=== PATIENT | female | born 1960 | race Caucasian/White ===

== ENCOUNTER 2020-02-20 08:23 | Outpatient (CLI) | payer OTHER, SELFPAY ==
--- NOTE | ~2020-02-20 | MM_ITS ---
EXAMINATION: MM screening jennifer BI w maria isabel HISTORY: Screening mammogram TECHNIQUE: Craniocaudal and mediolateral oblique 3-D tomosynthesis images were obtained and synthetic 2-D images were generated. CAD analysis was submitted and interpreted. COMPARISON: 01/22/2019, 11/08/2017 bilateral digital screening mammogram examinations BREAST PARENCHYMAL COMPOSITION: There are scattered areas of fibroglandular density. FINDINGS: There is no evidence of suspicious mass, calcification, or architectural distortion to sugg est malignancy in either breast. There has been no suspicious interval change. IMPRESSION: 1. No mammographic evidence of malignancy. 2. Recommend routine screening mammography in one year. BI-RADS Category 1: Negative Reviewed, dictated and finalized at location A.
== END 2020-02-20 08:24 | disposition home or self-care (01) ==
LOC: ANHIMG 08:26
PROVIDERS: PCP Family Medicine; Visit Provider Family Medicine
DX: Z12.31 Encounter for screening mammogram for malignant neoplasm of breast (principal)
CPT/HCPCS: 77063; 77067

== ENCOUNTER 2020-03-11 10:27 | Outpatient (CLI) | payer OTHER, SELFPAY ==
--- NOTE | ~2020-03-11 | CT_ITS ---
EXAMINATION: CT brain wo con DATE: 03/11/2020 10:54 INDICATION: Syncope, collapse. TECHNIQUE: Computed tomography (CT) of the head was performed without intravenous contrast. The mA wa s adjusted according to patient size. Iterative reconstruction technique was employed. Exam dose: 68 1.00 mGy-cm total exam DLP. COMPARISON: None FINDINGS: The ventricles are dilated. Consider communicating hydrocephalus. Bilateral carotid siphon internal carotid artery calcifications. There is nonspecific mild diminished attenuation of the cerebral white matter, likely due to chronic small vessel ischemic changes. No intracranial mass lesion or hemorrhage or cerebrovascular accident is evident. No midline shifts o r mass effects. No subdural or epidural hematoma. No orbital mass lesion. 7 mm mucous retention cyst or polyp along the lateral wall of the left maxillary sinus. The included paranasal sinuses and the mastoid air cells otherwise are unremarkable. Status post right mastoidecto my. Hyperostosis frontalis interna. No skull fracture or bone destruction. IMPRESSION: Prominent dilatation of the ventricles, suggesting possible communicating hydrocephalus Cerebral atherosclerosis and chronic small vessel ischemic changes of the cerebral white matter Reviewed, dictated and finalized at Location A. Reviewed, dictated and finalized at location A. IMPRESSION: Prominent dilatation of the ventricles, suggesting possible commun icating hydrocephalus Cerebral atherosclerosis and chronic small vessel ischemic changes of the cereb ral white matter
== END 2020-03-11 10:28 | disposition home or self-care (01) ==
PROVIDERS: PCP Family Medicine; Visit Provider Family Medicine
DX: R55 Syncope and collapse (principal); I67.2 Cerebral atherosclerosis
CPT/HCPCS: 70450

== ENCOUNTER 2020-03-30 12:23 | Outpatient (CLI) | payer OTHER, SELFPAY ==
--- NOTE | 2020-03-30 13:30 | NEURO_ITS ---
TEST: ELECTROENCEPHALOGRAM DIAGNOSIS: SYNCOPE AND COLLAPSE PATIENT NUMBER: [id number] EEG NUMBER: [id number] RECORDING DATE: 03/30/20 CLINICAL HISTORY: Patient reports since October she has lost consciousness 5 times. She has no warning signs and is fine afterwards. CONDITION OF RECORDING: Awake, drowsy and sleep EEG DESCRIPTION: Basic resting occipital frequency consists of moderate amount of farily well organized low to medium voltage 8-9hz alpha mixed with low voltage 15-18hz beta. During drowsiness low voltage beta activity is seen diffusely mixed with waxing and waning posterior alpha rhythms and intermittent theta activity. Bilateral symmetrical sleep activity is seen during sleep. Intermittent low to medium voltage 5-7hz asymmetrical theta activity is seen with occasional delta activity. Nonparoxysmal. Nonfocal. Nonlateralizing. IMPRESSION: Questionably abnormal record due to presence of excessive amount of theta and occasional delta activity. This abnormalities are not highly diagnostic but could be compatible with seizure disorder. Clinical correlation recommended and further evaluation recommended. [facility]
== END 2020-03-30 12:24 | disposition home or self-care (01) ==
PROVIDERS: PCP Family Medicine; Visit Provider Family Medicine
DX: R55 Syncope and collapse (principal)
CPT/HCPCS: 95816

== ENCOUNTER → 2020-11-23 16:33 | Outpatient (CLI) | payer OTHER, SELFPAY ==
--- NOTE | ~2020-11-23 | XR_ITS ---
XR thoracic spine 2V 11/23/2020 17:05 Indication: Back pain for 2 weeks Procedure: 3 views of the thoracic spine Comparison: No prior studies for comparison. Findings: There is mild dextroscoliosis of the lower thoracic spine. Vertebral body heights are maint ained. No fracture or traumatic malalignment. No significant paraspinal soft tissue abnormality. Pedi cles intact. There are mild endplate degenerative changes at multiple levels. Surrounding osseous str uctures within normal limits. Impression: 1: Mild thoracic spondylosis with dextroscoliosis of the lower thoracic spine. Reviewed, dictated and finalized at location A. 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
--- NOTE | ~2020-11-23 | XR_ITS ---
XR cervical spine min 6V 11/23/2020 17:05 Indication: Neck pain for 2 weeks Procedure: 7 views of the cervical spine Comparison: No prior studies for comparison. Findings: There is normal cervical alignment. Vertebral body heights are maintained. Odontoid process within normal limits. Lateral masses are normally aligned. No prevertebral soft tissue swelling. Carrol g apices are normal. There are mild uncinate degenerative changes of the mid cervical spine. Impression: 1: Mild cervical spondylosis. Reviewed, dictated and finalized at location A. [employer] Impression: 1: Mild cervical spondylosis.
== END ==
PROVIDERS: Visit Provider Chiropractor
DX: M47.892 Other spondylosis, cervical region (principal); M47.894 Other spondylosis, thoracic region
CPT/HCPCS: 72052; 72070

== ENCOUNTER → 2020-12-20 02:22 | Outpatient (CLI) | payer OTHER, SELFPAY ==
[2020-12-20 18:21] LABS: SARS-CoV-2 RNA PCR Negative
== END ==
PROVIDERS: Visit Provider Internal Medicine Cardiovascular Disease
DX: Z01.812 Encounter for preprocedural laboratory examination (principal); Z20.822 Contact with and (suspected) exposure to COVID-19
CPT/HCPCS: C9803; U0003; U0005

== ENCOUNTER 2020-12-23 01:09 | Day surgery (SDC) | payer OTHER, SELFPAY ==
[2020-12-23 11:34] VITALS: BP 132/53; PULSE 68; RESP 14; O2SAT 98
--- NOTE | 2020-12-23 12:59 | WPDHPUPDATE1 ---
History and Physical Update Update Date/Time: 12/23/20 12:59 Patient with recurrent syncope, here for a the implantable loop recorder implant. History and Physical has been reviewed, including an updated exam of the patient. There are NO changes in the patient's condition. Risks, benefits, and alternatives have been discussed and questions answered. Patient agrees to proceed with procedure.
--- NOTE | 2020-12-23 12:59 | PM.OP ---
Procedure Note - Brief Procedure Note - Brief Date of procedure: 12/23/20 Pre-op diagnosis: Syncope Procedure performed: Implantation of a Biotronik implantable loop recorder Description of procedure: Uneventful implant of a Biotronik implantable loop recorder Anesthesia: local Surgeon: Harriet Hu MD Condition: stable Disposition: observation
--- NOTE | 2020-12-23 13:08 | PM.PROC ---
Procedure Note - Detailed Date of procedure: 12/23/20 Pre-op diagnosis: Syncope Post-op diagnosis: same Procedure performed: Implantation of a Biotronik loop recorder. Description of procedure: After informed consent, the left chest was sterilely prepped and draped. Local anesthesia was provided with 1% lidocaine. The Biotronik implantable loop recorder was implanted along the left parasternal area uneventfully. Good P-wave sensing was obtained, 0.32V.. Because of her history of adhesive allergy, I sutured the incision closed with 2 0 Vicryl and we placed a Tegaderm gauze dressing over the incision. Implants: Biotronik loop recorder,ProMRI, Model # [id number], Serial number [id number] Anesthesia: local Surgeon: Harriet Hu MD Estimated blood loss (mL): 2 Drains: No Packing: No Complications: No immediate complications Condition: stable Disposition: same day
--- NOTE | 2020-12-23 16:34 | SUR.OPER ---
1300-pt given D/C orders and instructions. Questions answered and verbalized understanding. AOx4. Ambulated per request to waiting vehicle. No distress noted or verbalized at time of departure.
== END 2020-12-23 13:00 | disposition home or self-care (01) ==
PROVIDERS: PCP Family Medicine; Visit Provider Internal Medicine Cardiovascular Disease
PROC: (CPT 33285; principal; 2020-12-23 12:00)
DX: R55 Syncope and collapse (principal); I10 Essential (primary) hypertension; E78.5 Hyperlipidemia, unspecified; F41.8 Other specified anxiety disorders; E53.8 Deficiency of other specified B group vitamins
CPT/HCPCS: 33285; C1764

== ENCOUNTER 2021-02-01 17:34 | Emergency (ER) | payer OTHER, SELFPAY ==
--- NOTE | ~2021-02-01 | CT_ITS ---
EXAMINATION: CT brain wo con DATE: 02/01/2021 21:49 INDICATION: Fall. Patient struck head. TECHNIQUE: Computed tomography (CT) of the head was performed without intravenous contrast. The mA wa s adjusted according to patient size. Iterative reconstruction technique was employed. Exam dose: 68 1.00 mGy-cm total exam DLP. COMPARISON: 03/11/2020 CT brain FINDINGS: Stable chronic prominence of the size of the cerebral ventricles relative to the cerebral c ortical sulci since 03/11/2020; clinical correlation is recommended for possible normal pressure hydro cephalus, characterized by a triad of symptoms: gait disturbance, cognitive impairment and diminished bladder control. No intracranial mass lesion or hemorrhage or cerebrovascular accident is evident. No midline shift or mass effect. Bilateral carotid siphon internal carotid artery calcifications. No subdural or epidural hematoma. Status post right mastoidectomy. Small mucous retention cyst of the lateral wall of left maxillary an trum is again noted. Bilateral hyperostosis frontalis interna, not likely of any clinical significance. No skull fracture or bone destruction. IMPRESSION: Stable ventricular prominence since 03/11/2020; recommend clinical correlation to exclude normal pressure hydrocephalus No acute intracranial finding or significant change since 03/11/2020 Reviewed, dictated and finalized at Location A. Reviewed, dictated and finalized at location A.
--- NOTE | ~2021-02-01 | CT_ITS ---
EXAMINATION: CT cervical spine wo con DATE: 02/01/2021 21:49 INDICATION: Fall. Patient struck head. Head and neck injury. TECHNIQUE: Computed tomography (CT) of the cervical spine was performed without intravenous contrast. Automated exposure control and iterative reconstruction technique were employed. Exam dose: 415.05 mGy-cm total exam DLP. COMPARISON: 11/23/2020 cervical spine FINDINGS: Incidental finding of right mastoidectomy. There is straightening of cervical spine. C1 and C2 are normally aligned and the odontoid process is intact. No cervical spine fracture or disl ocation or locked facet. Cervical interspaces are relatively well preserved. No prevertebral soft tis oscar swelling. IMPRESSION: Straightening of cervical spine; no fracture or dislocation or locked facet Reviewed, dictated and finalized at Location A. Reviewed, dictated and finalized at location A. IMPRESSION: Straightening of cervical spine; no fracture or dislocation or loc ked facet
--- NOTE | ~2021-02-01 | XR_ITS ---
XR wrist LT min 3V DATE: 02/01/2021 21:58 INDICATION: Fall. Generalized left wrist pain TECHNIQUE: 4 views COMPARISON: 02/01/2021 left forearm FINDINGS: There is prominent osteoarthritic change at the first carpometacarpal joint. No recent fracture or dislocation, periosteal reaction or bone destruction of the left wrist is evide nt. IMPRESSION: Prominent osteoarthritis at first carpal metacarpal joint No apparent recent fracture or dislocation of left wrist Reviewed, dictated and finalized at location A.
--- NOTE | ~2021-02-01 | XR_ITS ---
XR forearm LT 2V DATE: 02/01/2021 18:08 INDICATION: Fall. Generalized pain from elbow to wrist TECHNIQUE: AP and lateral views COMPARISON: None FINDINGS: No fracture or dislocation. No elbow joint effusion. No periosteal reaction or bone destruc tion. IMPRESSION: Negative Reviewed, dictated and finalized at location A. IMPRESSION: Negative
--- NOTE | ~2021-02-01 | XR_ITS ---
XR elbow LT min 3V DATE: 02/01/2021 21:58 INDICATION: Fall. Left elbow injury, pain TECHNIQUE: 4 views COMPARISON: None FINDINGS: No fracture or dislocation or joint effusion. No periosteal reaction or bone destruction. IMPRESSION: Negative Reviewed, dictated and finalized at location A. IMPRESSION: Negative
[2021-02-01 17:55] VITALS: BP 146/55; PULSE 60; RESP 18; TEMP 36.3; O2SAT 98
[2021-02-01 21:00] VITALS: BP 133/67; PULSE 62; RESP 21; O2SAT 98
[2021-02-01 21:21] VITALS: BP 161/80; PULSE 67; RESP 19; O2SAT 100
--- NOTE | 2021-02-01 21:30 | ED.GENADULT ---
HPI - General Adult General Chief complaint: Fall Stated complaint: fall head trauma Time Seen by Provider: 02/01/21 21:22 Source: patient History of Present Illness HPI narrative: Patient is a 60 y/o female complaining of left wrist and left elbow pain after she fell down approximately 10 steps at work. She describes her pain as sharp and rates it as 7/10. She states that movement aggravates her pain. She also struck her head and has some right sided headache. She denies LOC. She has no neck pain, back pain, chest pain or abdominal pain. Related Data Home Medications Medication Instructions Recorded Confirmed clonazepam 0.5 mg tablet 0.5 mg PO TID tablet 09/05/19 12/22/20 mirtazapine 45 mg disintegrating 45 mg PO DAILY 09/05/19 12/22/20 tablet lamotrigine 100 mg tablet 100 mg PO TID tablet 09/08/19 12/22/20 aripiprazole 10 mg PO DAILY 12/22/20 12/22/20 Allergies Allergy/AdvReac Type Severity Reaction Status Date / Time sulfamethoxazole Allergy Intermediate ITCHING Verified 09/13/20 13:02 AND RASH trimethoprim Allergy Intermediate ITCHING Verified 09/13/20 13:02 AND RASH cefixime Allergy Unknown Unknown Verified 09/13/20 13:02 ciprofloxacin Allergy Unknown Unknown Verified 09/13/20 13:02 clarithromycin Allergy Unknown Unknown Verified 09/13/20 13:02 erythromycin base Allergy Unknown Unknown Verified 09/13/20 13:02 Penicillins Allergy Unknown Unknown Verified 09/13/20 13:02 sulfamethizole Allergy Unknown Unknown Verified 09/13/20 13:02 tetracycline Allergy Unknown Unknown Verified 09/13/20 13:02 Review of Systems Constitutional: Constitutional: Denies chills, Denies fever(s), Reports headache(s) and Denies weakness Eyes: Eyes: Denies blurry vision ENT: Reports headache(s) and Denies neck pain Cardiovascular: Cardiovascular: Denies chest pain and Denies dyspnea Respiratory: Respiratory: Denies cough and Denies dyspnea Gastrointestinal: Gastrointestinal: Denies abdominal pain, Denies diarrhea, Denies nausea and Denies vomiting Genitourinary: Genitourinary: Denies hematuria and Denies dysuria Musculoskeletal: Musculoskeletal: Denies back pain, Reports arthralgias (left elbow pain and wrist pain) and Denies neck pain Neurologic: Reports headache(s) and Denies weakness [facility] Family History Family History Father Hypertension Family history of elevated blood lipids Mother Hypertension Family history of elevated blood lipids Family history of arthritis Social History Social History Years smoked: 2 Smoking status: Former smoker Tobacco type: cigarettes Second hand tobacco smoke exposure: No Smoking end date: 10/22/81 Alcohol intake: never Substance use: never Substance use type: does not use Gender identity (if verbalized by the patient): Female Exam Const: General: no acute distress and well developed Orientation/consciousness: oriented to person, oriented to place, oriented to time and patient oriented x3 HENMT: Head: normocephalic Ears: external ears normal General nose exam: Normal external nose present Eyes: General: appearance normal, both eyes and all related structures Conjunctivae: conjunctivae normal Neck: Neck: normal visual inspection and full ROM Chest: Chest palpation & inspection: normal inspection of the chest and no tenderness Resp: Effort & Inspection: normal respiratory effort Auscultation: clear to auscultation bilaterally Cardio: Rate: regular rate Rhythm: regular rhythm GI: GI Palp: No abdominal tenderness and Yes Soft to palpation Skin: General skin exam: normal color and turgor normal Neuro: General: oriented to person, oriented to place, oriented to time and patient oriented x3 Cognition (Neuro): normal cognition Extrem: General: normal to inspection, full ROM and no pedal edema Psych: Appearance: grossly normal Mental Status:
[2021-02-01 22:00] VITALS: BP 144/32; PULSE 60; RESP 22; O2SAT 100
[2021-02-01 23:25] VITALS: BP 150/70; PULSE 64; RESP 25; O2SAT 98
== END 2021-02-01 23:25 | disposition home or self-care (01) ==
PROVIDERS: Emergency Provider Emergency Medicine; PCP Family Medicine
DX: M25.522 Pain in left elbow (principal); M25.532 Pain in left wrist; S00.03XA Contusion of scalp, initial encounter; Z87.891 Personal history of nicotine dependence; W10.9XXA Fall (on) (from) unspecified stairs and steps, initial encounter
CPT/HCPCS: 70450; 72125; 73080; 73090; 73110; 99284

== ENCOUNTER 2021-02-07 15:04 | Inpatient (IN) | payer OTHER, SELFPAY ==
[2021-02-07] VITALS (7 sets, daily range): BP systolic 123–171; BP diastolic 63–94; PULSE 65–78; RESP 16–25; TEMP 36.2–36.4; O2SAT 98–100; BMI 40.3
--- NOTE | ~2021-02-07 | XR_ITS ---
EXAMINATION: XR chest 1V portable 02/07/2021 16:47 INDICATION: Shortness of breath after fall PROCEDURE: AP view of the chest COMPARISON: 11/17/2016 FINDINGS: The lungs are clear. The cardiomediastinal silhouette is within normal limits. There are no pleural effusions. There is no pneumothorax suspected. There is an implantable cardiac device ov erlying the left chest. IMPRESSION: 1: NO ACUTE CARDIOPULMONARY DISEASE. Reviewed, dictated and finalized at location A.
--- NOTE | ~2021-02-07 | CT_ITS ---
EXAMINATION: CT brain wo con DATE: 02/07/2021 16:43 INDICATION: Head injury. TECHNIQUE: Computed tomography (CT) of the head was performed without intravenous contrast. The mA wa s adjusted according to patient size. Iterative reconstruction technique was employed. The dose-lengt h product was 605.33 mGy-cm. COMPARISON: Head CT 02/01/2021 FINDINGS: There is no intracranial hemorrhage, acute infarction, or abnormal intracranial mass lesion . The ventricles are dilated for the size of the sulci. The paranasal sinuses are clear. The orbits a re normal. There are changes of right mastoidectomy. IMPRESSION: 1. Stable ventriculomegaly. Correlate clinically for normal pressure hydrocephalus. Reviewed, dictated and finalized at location B. IMPRESSION: 1. Stable ventriculomegaly. Correlate clinically for normal pressure hydrocepha mary.
--- NOTE | ~2021-02-07 | XR_ITS ---
EXAMINATION: XR lumbar puncture diagnostic DATE: 02/08/2021 12:21 INDICATION: Dizziness and falls TECHNIQUE: The procedure including the risks and benefits was discussed with the patient. Risks discu ssed included spinal headache, cerebrospinal fluid leak, bleeding, and infection. The patient underst ood the risks and agreed to proceed. A timeout was performed to verify the patient's name, date of , and procedure to be performed. The skin overlying the L3-L4 level was prepped and draped in usual sterile fashion. Subcutaneous 1% lidocaine was used for local anesthesia. A 22 gauge spinal n eedle was advanced under fluoroscopic guidance. And crosstable lateral radiograph was also obtained t o assess for depth of the needle tip. Opening pressure was obtained, fluid was aspirated into collect ion tubes and a closing pressure obtained. The needle was removed and the entry site was cleaned and dressed. There were no immediate complications. The patient was taken to the nursing area for observ ation. FINDINGS: Real-time fluoroscopy demonstrates the needle at the L3-L4 level. Opening pressure was 16 c m water. (Normal range is variably defined as 6-20 cm water and up to 25 cm water in obese patients. Pressure >25 cm water is one of the modified Dandy criteria for idiopathic intracranial hypertension) . 12 mL of clear, colorless fluid was collected in 4 tubes. Closing pressure was 14 cm water. A tota l of 2 fluoroscopic images and a single radiograph are obtained. The amount of fluoroscopy time used during this procedure was 0.4 minutes. IMPRESSION: 1. Successful fluoro-guided lumbar puncture. Reviewed, dictated and finalized at location A.
--- NOTE | ~2021-02-07 | MR_ITS ---
EXAMINATION: MR brain/brain stem wo/w con DATE: 02/08/2021 12:54 INDICATION: Gait disturbance. Ventriculomegaly. TECHNIQUE: Magnetic resonance imaging (MRI) of the brain and brainstem was performed without and with 20 mL MultiHance intravenous contrast. Sequences included sagittal and axial T1-weighted FSE, axial diffusion-weighted FS EPI, axial T2*-weighted GRE, axial T2-weighted FLAIR Propeller, and axial T2-we ighted Propeller. Postcontrast sequences included axial and coronal T1-weighted FSE. Apparent diffusi on coefficient (ADC) maps were created. COMPARISON: Head CT 02/07/2021, 03/11/2020 FINDINGS: There are scattered areas of nonspecific increased T2-weighted signal intensity in the cere bral white matter, which is within normal limits for the patient's age. There is no intracranial hemo rrhage, acute infarction, or abnormal intracranial mass lesion. The lateral, third, and fourth ventri cles are dilated out of proportion to the size of the sulci. There is mild mucosal thickening in the paranasal sinuses. The orbits are normal. The mastoid air cells are normal. IMPRESSION: 1. Stable chronic ventriculomegaly. Correlate clinically for normal pressure hydrocephalus. Reviewed, dictated and finalized at location B. IMPRESSION: 1. Stable chronic ventriculomegaly. Correlate clinically for normal pressure hy drocephalus.
--- NOTE | 2021-02-07 16:29 | ECG_ITS ---
Measurements Intervals Mallory Rate: 65 P: 22 NE: 153 QRS: -11 QRSD: 106 T: 93 QT: 428 QTc: 445 Interpretive Statements SINUS RHYTHM DELAYED PRECORDIAL R/S TRANSITION BORDERLINE ST-T WAVE ABNORMALITY- HIGH LATERAL LEADS BASELINE ARTIFACT- I, III, AVR, AVL, AVF BORDERLINE ECG Electronically Signed On 02-07-2021 20:14:00 CDT by Lan Beasley D.O.
[2021-02-07] MEDS: SODIUM CHLORIDE 0.9% IV 500 ML 999 ML IV CONT (17:01)
[2021-02-07 17:29] LABS: Basophils Percent Auto 0.4 % (0.2-1.2); Eosinophils Absolute Auto 0.1 K/mm3 (0-0.3); Eosinophils Percent Auto 1.8 % (0-4.4); Hematocrit 40.3 % (37.0-47.0); Hemoglobin 13.1 g/dL (12.0-15.0); Immature Granulocyte Absolute 0.03 K/mm3 (0.00-0.031); Immature Granulocyte Percent A 0.4 % (0-0.5); Lymphocytes Absolute Auto 1.18 K/mm3 (0.9-3.2); Lymphocytes Percent Auto 16.6 % (18.3-44.2); Mean Corpuscular HGB Conc 32.5 g/dl (32-36); Mean Corpuscular Hemoglobin 30.5 pg (26-34); Mean Corpuscular Volume 93.7 fl (80-100); Mean Platelet Volume 10.2 fl (7.4-10.4); Monocytes Absolute Auto 0.5 K/mm3 (0.1-0.6); Monocytes Percent Auto 6.5 % (2.6-8.5); Neutrophils Absolute Auto 5.3 K/mm3 (1.3-6.7); Neutrophils Percent Auto 74.3 % (45.5-73.1); Platelet Count Result 257 k/mm3 (150-375); Red Cell Distribution Width 13.3 % (11.5-14.5); White Blood Count 7.1 K/mm3 (4.5-10.0)
[2021-02-07 17:38] LABS: Add Urine Microscopic? YES; Appearance Urine Clear (Clear); Bacteria Urine 3+ /hpf; Bilirubin Urine Negative (Negative); Blood Urine Negative (Negative); Color Urine Yellow (Yellow); Glucose Urine UA Negative (Negative); Ketones Urine Negative (Negative); Leukocyte Esterase Ur Trace LEU/UL (Negative); Mucus Urine Rare /lpf; Nitrate Urine Negative (Negative); Protein Urine Negative (Negative); RBC Urine 0-2 /hpf (0-2); Specific Grav Ur 1.011 (1.001-1.035); Squamous Epithelial Cell Urine Occasional /hpf (Few); Urobilinogen Urine Negative mg/dL (<2.0)
[2021-02-07 17:39] LABS: Creatine Kinase 49 U/L (30-135); INR 0.9; Prothrombin Time 12.6 Seconds (11.1-14.7)
[2021-02-07 17:40] LABS: Partial Thromboplastin Time 28.5 SECONDS (22.3-36.8)
[2021-02-07 17:52] LABS: Troponin I < 0.012 ng/mL (0.000-0.034)
--- NOTE | 2021-02-07 19:08 | ED.FALL ---
HPI - Fall General Chief Complaint: Fall Stated Complaint: fall/hi/right hip pain Time Seen by Provider: 02/07/21 16:11 Source: patient, family and old records reviewed Mode of arrival: ambulatory Limitations: clinical condition History of Present Illness HPI Narrative: Patient is a 60-year-old female who presents after sustaining what is described as a mechanical ground-level fall patient does have balance issues and has had frequent falls in the recent past has been experiencing dizziness her psychiatrist had made some medication changes thinking that this may help the issue however the patient continues to have dizziness. Patient notes she struck her head and injured her hip and neck in the fall. On arrival patient in no distress however she was unable to get up on her own accord and required help. Patient lives at home by herself. Patient is on multiple medications. Patient notes the only new medication is the duloxetine which she started in the last week. Patient notes that she has had syncopal episodes but did not have syncope or loss of consciousness with this fall. Patient also notes history for chronic hydrocephalus has never been evaluated as far as a lumbar puncture for this and saw her primary care this morning for her gait instability and falls with planned CT of the brain neurology referral and lumbar puncture for opening pressures. Patient then went home and sustained her fall Related Data Home Medications Medication Instructions Recorded Confirmed clonazepam 0.5 mg tablet 0.5 mg PO TID tablet 09/05/19 02/07/21 mirtazapine 45 mg disintegrating 45 mg PO DAILY 09/05/19 02/07/21 tablet lamotrigine 100 mg tablet 100 mg PO TID tablet 09/08/19 02/07/21 aripiprazole 10 mg PO DAILY 12/22/20 02/07/21 duloxetine 60 mg capsule,delayed 60 mg PO DAILY 02/07/21 02/07/21 release Allergies Allergy/AdvReac Type Severity Reaction Status Date / Time sulfamethoxazole Allergy Intermediate ITCHING Verified 02/07/21 17:27 AND RASH trimethoprim Allergy Intermediate ITCHING Verified 02/07/21 17:27 AND RASH cefixime Allergy Unknown Unknown Verified 02/07/21 17:27 ciprofloxacin Allergy Unknown Unknown Verified 02/07/21 17:27 clarithromycin Allergy Unknown Unknown Verified 02/07/21 17:27 erythromycin base Allergy Unknown Unknown Verified 02/07/21 17:27 Penicillins Allergy Unknown Unknown Verified 02/07/21 17:27 sulfamethizole Allergy Unknown Unknown Verified 02/07/21 17:27 tetracycline Allergy Unknown Unknown Verified 02/07/21 17:27 Review of Systems Review of Systems: All systems reviewed & are unremarkable except as noted in HPI and below PMFSH Past Medical History Medical History (Updated 02/07/21 @ 19:13 by Saad Loza PA-C) Anxiety and depression B12 deficiency Chronic GERD Essential (primary) hypertension Major depressive disorder, single episode, unspecified Osteoarthritis of knees, bilateral Other and unspecified hyperlipidemia Syncope and collapse Family History Family History Father Hypertension Family history of elevated blood lipids Mother Hypertension Family history of elevated blood lipids Family history of arthritis Social History Social History Years smoked: 2 Smoking status: Former smoker Tobacco type: cigarettes Second hand tobacco smoke exposure: No Smoking end date: 10/22/81 Alcohol intake: never Substance use: never Substance use type: does not use Gender identity (if verbalized by the patient): Female Exam Narrative: Exam Narrative: GENERAL: Well-appearing, well-nourished, and in no acute distress. HEAD: Normocephalic, atraumatic. EYES: PERRLA and EOMI. ENT: Nares clear, no rhinorrhea or epistaxis. Mucous membranes moist. NECK: Supple. No adenopathy or masses. No carotid bruits or JVD CHEST: Clear to auscultation. No respiratory distress. No
--- NOTE | 2021-02-07 21:05 | PM.IMHP ---
H&P: HPI History of Present Illness Date/Time: 02/07/21 21:05 Chief Complaint: Losing balance Narrative: 60-year-old female with a past medical history of bipolar disorder, schizophrenia versus schizoaffective disorder, hypertension, hyperlipidemia, depression, diastolic dysfunction and mild aortic valve stenosis who presented to the ER after outpatient follow-up appointment with primary care due to feeling off balance and additional falls. The patient began having recurrent syncopal episodes starting in October of 2019. She was evaluated outpatient with a event monitor that was unremarkable. She also was referred to neurology as her symptoms had no prodrome and there was concern for possible seizure activity. She was evaluated by neurology and had EEG March 2020 that demonstrated increased theta waves and a few delta waves which could be compatible with seizure disorder but no more seizure activity noted. The patient also had an echocardiogram which demonstrated normal EF, grade 1 diastolic dysfunction, mild aortic valve stenosis and mild mitral valve prolapse. The patient was evaluated by Dr. Harriet Hu in the clinic in August 2020 and re-evaluated November 2020. She had a subsequent implantable loop recorder placed 12/23/2020. The patient had a CT scan in February of 2020 that demonstrated of the ventricles suggesting possible communicating hydrocephalus, cerebral atherosclerosis and chronic small-vessel ischemic changes. The patient's CT today demonstrated stable findings. The patient reports chronic cerebral ventriculomegaly since 1986. She reports symptoms of feeling off balance. She states that she will start to walk and then into walking so fast that she stumbles and falls. She reports that shock falling gait. She has difficulties with coordination. Dense cessation of being off balance has been worse for the last 3 or 4 weeks. She denies any headaches. She reports that 2 or 3 days ago when she climbed into the car she noticed that she was seeing 2 steering wheels. She decided to call in to work and tell them that she would come in late. She went back to bed and slept. When she woke up she no longer had double vision. She has not seen a eye doctor in close to 2 years. She was supposed to see an eye doctor January 2020 but did not do so due to COVID. She denies any blurred vision. She has not noticed any difficulty with coordination of her hands. But on exam the patient has difficulty performing [id number] with the left hand. The patient reports that recently her Viibryd was discontinued to see if that would help with her symptoms. She was switched to duloxetine. She did not notice any changes in her symptoms. She denies any loss of bowel or bladder control. She has been having normal bowel movements. She denies any numbness, tingling or paresthesias. She has noticed increased difficulty with word finding. Review of Systems Review of Systems: Narrative: 12 systems were reviewed with pertinent positives and negatives per HPI. Except as documented in the HPI, all other systems were reviewed and are negative. [facility] Past Medical History Medical History (Updated 02/07/21 @ 23:44 by Soraya Williamson DO) Anxiety and depression B12 deficiency Bipolar disorder Cerebral ventriculomegaly Since 1986 Chronic GERD Diastolic dysfunction Echocardiogram 09/2020: Grade 1 diastolic dysfunction EF 74%, mild concentric left ventricular hypertrophy, mild pulmonary hypertension with RVSP of 38, mild aortic valve stenosis, mild mitral valve prolapse Essential (primary) hypertension Major depressive disorder Osteoarthritis of knees, bilateral Other and unspecified hyperlipidemia Schizoaffective disorder The patient is unsure if she has schizophrenia versus schizoaffective disorder Syncope and collapse Surgical History Surgical History (Updated 02/07/21 @ 23:43 by Soraya Williamson DO) History of mastoidectomy (~1993) Right History of myr
[2021-02-07 21:56] LABS: Lithium 0.7 mmol/L (0.6-1.2)
--- NOTE | 2021-02-07 23:18 | PC.NURSE ---
This patient, Jess Chávez, was admitted to 2 Medical Room 254-01. Patient/family oriented to hospital policies and general routines including ID bracelet, bed and alarms, visiting hours, pain management, procedures, bathroom and other care routines, personal items, smoking policy, room service/diet, and visiting hours. Information on how to activate the Rapid Response Team has been discussed. Patient/Family are encouraged to report perceived risks to care and to ask questions if they do not understand what they are told or what they should do. MRI planned for tomorrow and screening form completed.
[2021-02-08] VITALS (14 sets, daily range): BP systolic 113–147; BP diastolic 49–73; PULSE 64–76; RESP 16–22; TEMP 36–36.3; O2SAT 96–99
[2021-02-08] MEDS: clonazePAM (*CRX) 0.5 MG TABLET 1 MG PO ×2 (00:04→20:49)
[2021-02-08] MEDS: FAMOTIDINE 20 MG/2 ML VIAL IV PUSH (00:04)
[2021-02-08] MEDS: LACTATED RINGERS 1,000 ML 75 ML IV CONT ×2 (00:07→17:37)
[2021-02-08] MEDS: traZODone HCL 50 MG TABLET PO ×2 (00:15→20:49)
[2021-02-08] MEDS: MIRTAZAPINE SOLTAB 15 MG TAB.DISPER 45 MG PO ×2 (00:15→20:49)
[2021-02-08] MEDS: lamoTRIgine 100 MG TABLET 200 MG PO ×2 (00:16→20:49)
[2021-02-08] MEDS: LITHIUM CARBONATE 300 MG CAPSULE 600 MG PO ×2 (00:16→20:49)
[2021-02-08 08:38] LABS: Basophils Percent Auto 0.6 % (0.2-1.2); Eosinophils Absolute Auto 0.2 K/mm3 (0-0.3); Eosinophils Percent Auto 3.8 % (0-4.4); Hematocrit 34.7 % (37.0-47.0); Hemoglobin 11.2 g/dL (12.0-15.0); Immature Granulocyte Absolute 0.01 K/mm3 (0.00-0.031); Immature Granulocyte Percent A 0.2 % (0-0.5); Lymphocytes Absolute Auto 1.31 K/mm3 (0.9-3.2); Lymphocytes Percent Auto 25.2 % (18.3-44.2); Mean Corpuscular HGB Conc 32.3 g/dl (32-36); Mean Corpuscular Hemoglobin 30.6 pg (26-34); Mean Corpuscular Volume 94.8 fl (80-100); Mean Platelet Volume 10.4 fl (7.4-10.4); Monocytes Absolute Auto 0.4 K/mm3 (0.1-0.6); Monocytes Percent Auto 8.3 % (2.6-8.5); Neutrophils Absolute Auto 3.2 K/mm3 (1.3-6.7); Neutrophils Percent Auto 61.9 % (45.5-73.1); Platelet Count Result 259 k/mm3 (150-375); Red Blood Count 3.66 M/mm3 (4.2-5.4); Red Cell Distribution Width 13.4 % (11.5-14.5); White Blood Count 5.2 K/mm3 (4.5-10.0)
[2021-02-08 08:45] LABS: Alanine Aminotransferase 14 U/L (4-35); Albumin Level 3.8 g/dL (3.5-5.1); Alkaline Phosphatase 86 U/L (38-126); Anion Gap 5 mmol/L (8-16); Aspartate Amino Transferase 20 U/L (14-36); Bilirubin,Total 0.4 mg/dL (0.2-1.3); Blood Urea Nitrogen 14 mg/dL (7-17); Carbon Dioxide 25 mmol/L (22-30); Chloride 109 mmol/L (98-107); Estimated CRCL calculation 81 ml/min; Estimated Glomerular Filt Rate > 60; Glucose 94 mg/dL (65-105); Sodium 139 mmol/L (137-145)
[2021-02-08] MEDS: ARIPiprazole 10 MG TABLET PO (08:53)
[2021-02-08] MEDS: DULoxetine HCL 60 MG CAPSULE.DR PO (08:53)
[2021-02-08] MEDS: ATORVASTATIN 20 MG TABLET PO (08:53)
[2021-02-08] MEDS: clonazePAM (*CRX) 0.5 MG TABLET PO (08:53)
[2021-02-08] MEDS: amLODIPine BESYLATE 5 MG TABLET 10 MG PO (08:53)
[2021-02-08] MEDS: PANTOPRAZOLE 40 MG TABLET PO ×2 (08:54→20:49)
[2021-02-08] MEDS: MONTELUKAST SODIUM 10 MG TABLET PO (08:54)
[2021-02-08] MEDS: IRBESARTAN 150 MG TABLET 300 MG PO (08:54)
[2021-02-08] MEDS: lamoTRIgine 100 MG TABLET PO (08:54)
--- NOTE | 2021-02-08 11:28 | PCPTNOTE ---
Attempted PT eval. Pt having test done. At later time, pt gone for lumbar puncture. Will try again at later time.
[2021-02-08 12:44] LABS: Glucose CSF 57 mg/dL (40-70); Total Protein CSF 67 mg/dL (12-60)
[2021-02-08 13:18] LABS: Appearance CSF Clear (Clear); CSF source CSF; Color CSF Colorless (Colorless); Red Blood Cell CSF 0 (0-2)
[2021-02-08 13:20] LABS: Nucleated Cell CSF 3 /uL (0-5)
--- NOTE | 2021-02-08 16:16 | WPDNEURCNPN ---
Assessment and Plan Assessment and plan (1) Disequilibrium: Code(s): R42 - Dizziness and giddiness Status: Acute (2) Cerebral ventriculomegaly: Code(s): G93.89 - Other specified disorders of brain Status: Acute Additional Plan gait dysfunction with ventriculomegaly his spinal tap is being carried out further recommendation accord Consult date: 02/08/21 Time Seen: 12:30 HPI: Jess Chávez is a 60 year old female Admitted to the hospital for the complains of losing the balance in addition to ongoing comorbid conditions 1. Bipolar disorder 2. Hypertension 3. Hyperlipidemia 4. Depression 5. Diastolic cardiac dysfunction 6. Aortic valve stenosis patient presented to the emergency room because of the in balance and recurrent syncopal episodes starting in October of 2019 initially she was evaluated as an outpatient is studies included the even monitor and also concern about the possibility of seizure she had an EEG done in March of 2020 which only incur revealed the theta activity and delta activity raising the possibility of the postictal state or the metabolic encephalopathy but it was not frankly epileptic she had a CT scan February of 2020 that demonstrated the ventriculomegaly raising the possibility of communicating hydrocephalus she also reported when she starts to walk then into walking so fast that she stumbles and falls she also has difficulties with coordination disc problem is going on at least for the last several weeks she gave no history of associated headache but recently she had double vision she was supposed to see an investigations manager but unfortunately she did not as mentioned above she has ongoing history of multiple medical problem in addition she has history of the B12 deficiency GERD, evaluation up until now include ventriculomegaly and spinal tap has been planned Review of Systems Review of Systems: All systems reviewed & are unremarkable except as noted in HPI and below [facility] Past Medical History Medical History Anxiety and depression B12 deficiency Bipolar disorder Cerebral ventriculomegaly Since 1986 Chronic GERD Diastolic dysfunction Echocardiogram 09/2020: Grade 1 diastolic dysfunction EF 74%, mild concentric left ventricular hypertrophy, mild pulmonary hypertension with RVSP of 38, mild aortic valve stenosis, mild mitral valve prolapse Essential (primary) hypertension Major depressive disorder Osteoarthritis of knees, bilateral Other and unspecified hyperlipidemia Schizoaffective disorder The patient is unsure if she has schizophrenia versus schizoaffective disorder Syncope and collapse Surgical History Surgical History History of mastoidectomy (~1993) Right History of myringotomy History of myringotomy tubes in the right ear x6 with the 1st surgery 1986 Normal colonoscopy (01/04/18) Dr. Ruiz Family History Family History Father Hypertension Hyperlipidemia Mother Hypertension Hyperlipidemia Arthritis Dementia Social History Social History Social History: The patient lives with her 17-year-old dog. 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 She will not admit to a prior history of smoking but according to prior records the patient did briefly smoked for couple of years when she was young. She denies any alcohol use or illicit substance use. She quilts in her free time. Primary care physician: Dr. Lino Kraft Code status: Full code Years smoked: 2 Smoking status: Former smoker Tobacco type: cigarettes Second hand tobacco smoke exposure: No Smoking end date: 10/22/81 Alcohol intake: never Substance use: never Substance use type: does not use Gender identity (if verbalized by the patient): Female Spiritual care concerns
[2021-02-08] MEDS: NEOMYCIN/POLYMYXIN/BACITRACIN OINTMENT 15 GM TUBE 1 APPLIC TOPICAL (17:38)
--- NOTE | 2021-02-08 17:56 | PM.IMPN ---
Progress Note: A&P Assessment and Plan (1) Disequilibrium: Code(s): R42 - Dizziness and giddiness Status: Acute Assessment and Plan: Has been ongoing for weeks, worsened in last several days resulting in a couple falls at home. She reports dizziness is worse with turning her head to the side and with standing. Ventriculomegaly may be contributing although stable on imaging and she notes she has had this finding on imaging since 1984. Vertigo could contribute given the aggravating factors, she is willing to try meclizine. CT and MRI brain performed and demonstrate no acute intracranial findings. Neurology ordered LP. Most CSF studies are still pending (viral culture, fungal culture, MS testing) but thus far Gram stain is negative, clear colorless fluid with normal cell counts, mildly elevated protein. (2) Cerebral ventriculomegaly: Code(s): G93.89 - Other specified disorders of brain Status: Chronic Assessment and Plan: Stable and chronic, unsure if contributing to her symptoms. Appreciate neurology recommendations. PCP is setting her up with a referral to [facility]. She previously followed at [facility] for neurology many years ago. (3) Multiple falls: Code(s): R29.6 - Repeated falls Status: Acute Assessment and Plan: Secondary to above. PT/OT evaluations appreciated. Educated the patient on taking her time turning her head and changing positions from sitting to standing, using precautions to avoid falls at home. (4) Bipolar disorder: Code(s): F31.9 - Bipolar disorder, unspecified Status: Acute Assessment and Plan: Patient is noted to have bipolar disorder, schizoeffective disorder (or schizophrenia, she is unsure which), anxiety and depression. She follows with psychiatrist, Dr Demond Talamantes. Her psychiatrist recently changed her medications from Viibryd to duloxetine. She notes she was dizzy before the medication change, but that she has been more dizzy since changing medications. We discussed that she will call Dr Talamantes's office tomorrow and she already has a follow up appointment scheduled. Continue her home medications. Subjective Date/time seen: 02/08/21 1520 Interval history: Ms. Chávez is a 60yo F admitted for dizziness and falls at home. She reports dizziness has been going on for months but worsened in the last several days resulting in multiple falls at home. She reports left-sided headache which she attributes to bumping her head when she fell. She denies chest pain, shortness of breath or palpitations. No nausea or vomiting. Dizziness is elicited by turning her head and standing up. Review of Systems Review of Systems: All systems reviewed & are unremarkable except as noted in HPI and below Exam Narrative: Exam Narrative: General: Patient resting comfortably sitting up in bedside chair in no acute distress. HEENT: Normocephalic, EOMI, PERRL, oral mucosa moist. Cardiovascular: Rate and rhythm are regular. Respiratory: Lungs clear to auscultation bilaterally. Respirations even and non-labored. Tolerating room air. Abdomen: Soft, non-tender, non-distended, bowel sounds present. Extremities: Peripheral pulses intact. No edema. Neuro: Awake and alert. Oriented x 3. Medical Unit Secretary strength, upper and lower extremity strength are appropriate and equal bilaterally. She initially has trouble touching her nose with her left hand but is able to complete [id number] point testing without difficulty and admits she may have trouble since her IV in her left hand feels awkward. Speech is clear. Objective Data Vital Signs Vital Signs: Last Vital Signs Temp 97.1 F L 02/08/21 15:02 Pulse 76 02/08/21 16:00 Resp 18 02/08/21 15:36 BP 136/52 L 02/08/21 15:02 Pulse Ox 96 0
[2021-02-08] MEDS: MECLIZINE HCL 6.25 MG TABLET PO (19:11)
[2021-02-08] MEDS: ACETAMINOPHEN 325 MG TABLET 650 MG PO (22:26)
[2021-02-09] VITALS (8 sets, daily range): BP systolic 126–144; BP diastolic 50–70; PULSE 71–78; RESP 18–20; TEMP 36.1–36.2; O2SAT 92–99
[2021-02-09] MEDS: LACTATED RINGERS 1,000 ML 75 ML IV CONT (05:37)
[2021-02-09 05:55] LABS: Basophils Percent Auto 0.7 % (0.2-1.2); Eosinophils Absolute Auto 0.2 K/mm3 (0-0.3); Eosinophils Percent Auto 3.2 % (0-4.4); Hematocrit 34.1 % (37.0-47.0); Immature Granulocyte Absolute 0.01 K/mm3 (0.00-0.031); Immature Granulocyte Percent A 0.2 % (0-0.5); Lymphocytes Absolute Auto 1.56 K/mm3 (0.9-3.2); Lymphocytes Percent Auto 26.5 % (18.3-44.2); Mean Corpuscular HGB Conc 32.3 g/dl (32-36); Mean Corpuscular Hemoglobin 30.5 pg (26-34); Mean Corpuscular Volume 94.5 fl (80-100); Mean Platelet Volume 9.6 fl (7.4-10.4); Monocytes Absolute Auto 0.5 K/mm3 (0.1-0.6); Monocytes Percent Auto 8.1 % (2.6-8.5); Neutrophils Absolute Auto 3.6 K/mm3 (1.3-6.7); Neutrophils Percent Auto 61.3 % (45.5-73.1); Platelet Count Result 250 k/mm3 (150-375); Red Blood Count 3.61 M/mm3 (4.2-5.4); Red Cell Distribution Width 13.5 % (11.5-14.5); White Blood Count 5.9 K/mm3 (4.5-10.0)
[2021-02-09] MEDS: ATORVASTATIN 20 MG TABLET PO (09:47)
[2021-02-09] MEDS: ARIPiprazole 10 MG TABLET PO (09:47)
[2021-02-09] MEDS: amLODIPine BESYLATE 5 MG TABLET 10 MG PO (09:47)
[2021-02-09] MEDS: lamoTRIgine 100 MG TABLET PO (09:48)
[2021-02-09] MEDS: MONTELUKAST SODIUM 10 MG TABLET PO (09:48)
[2021-02-09] MEDS: MECLIZINE HCL 6.25 MG TABLET PO (09:48)
[2021-02-09] MEDS: clonazePAM (*CRX) 0.5 MG TABLET PO (09:48)
[2021-02-09] MEDS: IRBESARTAN 150 MG TABLET 300 MG PO (09:48)
[2021-02-09] MEDS: DULoxetine HCL 60 MG CAPSULE.DR PO (09:48)
[2021-02-09] MEDS: NEOMYCIN/POLYMYXIN/BACITRACIN OINTMENT 15 GM TUBE 1 APPLIC TOPICAL (09:49)
[2021-02-09] MEDS: PANTOPRAZOLE 40 MG TABLET PO (09:49)
--- NOTE | 2021-02-09 09:52 | WPDNEUROLOGY ---
Neurology EEG Report General Information Date of Study: 02/08/21 TEST eeg DIAGNOSIS myoclonic jerks CONDITION OF RECORDING Awake drowsy and sleep EEG NUMBER [id number] CLINICAL HISTORY patient has been transferred to this particular hospital from other institution because of the recurrent frequent body twitches. EEG DESCRIPTION Bihemispheric low to medium voltage 5 to 7 hertz per second theta activity seen admixed with intermittent 3 to 4 hertz per second delta activity and superimposed by low voltage recurrent spikes lasting anywhere from 1 [id number] and randomly bilaterally. hyperventilation not done. Photic stimulation not done. Nonfocal. Nonlateralizing. IMPRESSION Abnormal record due to the presence of bihemispheric widespread short lasting his spike and spikes without any slow wave component and the configuration of the spikes does not correlate with triphasic waves throughout the tracing raising the possibility of myoclonic seizures. clinical correlation recommended
--- NOTE | 2021-02-09 10:00 | P.NEURO_ITS ---
Neurology EEG Report General Information Date of Study: 02/08/21 TEST EEG DIAGNOSIS dizziness CONDITION OF RECORDING awake, drowsy and sleep EEG NUMBER [id number] CLINICAL HISTORY patient reported she got dizzy and fell yesterday. Denied loss of consciousness. Third time this week. EEG DESCRIPTION Basic resting occipital frequency consists of large amount of well-organized medium voltage 8 to 9 hertz per second alpha admixed with minimal amount of low- voltage 15 to 18 hertz per 2nd beta. Bihemispheric low-voltage beta activity seen diffusely during drowsiness bilateral symmetrical sleep activity seen during sleep. Hyperventilation not done photic stimulation not done. Non paroxysmal nonfocal nonlateralizing IMPRESSION normal record
--- NOTE | 2021-02-09 10:46 | PM.DS ---
DS: Admitting Diagnosis Admitting Diagnosis Admitting Diagnosis: Dizziness DS: Discharge Diagnosis Discharge Diagnosis (1) Disequilibrium: Code(s): R42 - Dizziness and giddiness Status: Acute Assessment and Plan: Date of Admission 02/07/21 Date of Discharge 02/09/21 Ms. Chávez is a 60yo F with history of bipolar disorder, schizophrenia vs. schizoaffective disorder (patient unsure which), depression, hypertension, hyperlipidemia, and mild aortic stenosis who presented to the ED for evaluation after outpatient follow-up with primary care due to feeling off-balance and multiple falls. She describes that she began having recurrent syncopal episodes starting in October and has been evaluated outpatient with an event monitor that was unremarkable and subsequently had a loop recorder placed 12/23/2020. She notes her dizziness is worsening lately and has had some falls at home. CT brain and MRI brain demonstrate a stable chronic ventriculomegaly. The patient relays that she has had these findings on imaging dating back to at least 1984 when she had her 1st right ear surgery for treatment of a cholesteatoma. She knows that she previously followed with a neurologist at [facility] but that was many years ago. She describes that her primary care provider has plans to refer her to a neurologist at [facility] again for further evaluation of her disequilibrium. She notes that her symptoms are worse with turning her head or standing up/walking. She was started on a trial of meclizine which improved her symptoms some. She was admitted for evaluation and neurology consultation. She was evaluated by Dr. Alvarez and lumbar puncture was performed 02/08/21. Some CSF studies are still pending but overall CSF cell counts are normal, total protein mildly elevated with normal glucose, negative Gram stain, culture pending with no growth to date. Detailed discussion held with patient regarding discharge planning, taking precautions at home to avoid falls, and encouraged her to follow up with Dr Kraft's office with [facility] neurology appointment. She may also benefit from re-evaluation by her ENT (given multiple right ear surgeries and history of cholesteatoma) if her neurology workup is unrevealing and her dizziness persists. She verbalizes understanding and is comfortable with discharge plan. She is hemodynamically stable for discharge 02/09/21. Has been ongoing for weeks, worsened in last several days resulting in a couple falls at home. She reports dizziness is worse with turning her head to the side and with standing. Ventriculomegaly may be contributing although stable on imaging and she notes she has had this finding on imaging since 1984. Vertigo could contribute given the aggravating factors, she is willing to try meclizine. CT and MRI brain performed and demonstrate no acute intracranial findings. Neurology ordered LP. Most CSF studies are still pending (viral culture, fungal culture, MS testing) but thus far Gram stain is negative, clear colorless fluid with normal cell counts, mildly elevated protein. (2) Cerebral ventriculomegaly: Code(s): G93.89 - Other specified disorders of brain Status: Chronic Assessment and Plan: Stable and chronic, unsure if contributing to her symptoms. Appreciate neurology recommendations. PCP is setting her up with a referral to [facility]. She previously followed at [facility] for neurology many years ago. She may further benefit from neurosurgery consultation for further workup and management, may benefit from cisternography which we will hold off on ordering outpatient since she has plans to go to [facility]. (3) Multiple falls: Code(s): R29.6 - Repeated falls Status: Acute Assessment and Plan: Secondary to above. PT/OT evaluations appreciated - walked c
--- NOTE | 2021-02-09 13:18 | PC.NURSE ---
On 02/09/21, the student, [Monse Day ], provided care and completed [email or web address] documentation on this patient. I have reviewed the student's documentation and agree with the findings.
[2021-02-10 00:21] LABS: Cryptococcus Antigen Not Detected (Not Detected); Cryptococcus Specimen Source CSF
[2021-02-10 13:42] LABS: VDRL Quantitative CSF Nonreactive (Nonreactive)
[2021-02-10 15:10] LABS: Herpes Simplex Type 1 DNA PCR Not Detected (Not Detected); Herpes Simplex Type 2 DNA PCR Not Detected (Not Detected)
[2021-02-11 09:59] LABS: Epstein Barr Virus DNA PCR Not Detected (Not Detected); Source Epstein Barr Virus CSF
[2021-02-11 11:42] LABS: Lyme Disease Ab (IgM), Blot Negative (Negative); Lyme Disease Ab(IgG), Blot Negative (Negative)
[2021-02-16 04:46] LABS: Albumin, CSF 36.3 mg/dL (8.0-42.0); Albumin, Serum 3.7 g/dL (3.5-5.2); IgG Index, CSF 0.51 (<0.66); IgG, CSF 4.1 mg/dL (0.8-7.7); Immunoglobulin G, Serum 817 mg/dL (600-1640); Myelin Basic Protein, CSF <2.0 mcg/L (2.0-4.0); Synthesis Rate IgG, CSF -0.2 mg/24 h (-9.9-3.3)
--- NOTE | 2021-02-22 09:15 | PC.NURSE ---
Faxed results from [facility] IgG and IgM to Dr. Kraft. CARLY Pate aware.
== END 2021-02-09 13:20 | disposition home or self-care (01) | DRG 149 ==
LOC: ANHED 19:13 → ANH2MED 02-08 09:08
PROVIDERS: Emergency Medicine Emergency Medical Services; Physician Assistant; Admitting Provider Internal Medicine; Emergency Provider Emergency Medicine; PCP Family Medicine; Visit Provider Internal Medicine
DX: R42 Dizziness and giddiness (principal); G93.89 Other specified disorders of brain; F31.9 Bipolar disorder, unspecified; S09.90XA Unspecified injury of head, initial encounter; S79.911A Unspecified injury of right hip, initial encounter; R26.89 Other abnormalities of gait and mobility; I35.0 Nonrheumatic aortic (valve) stenosis; I11.9 Hypertensive heart disease without heart failure; E78.5 Hyperlipidemia, unspecified; K21.9 Gastro-esophageal reflux disease without esophagitis; R29.6 Repeated falls; W18.30XA Fall on same level, unspecified, initial encounter; Z79.899 Other long term (current) drug therapy
CPT/HCPCS: 36415; 62328; 70450; 70553; 71045; 80053; 80178; 81001; 82040; 82042; 82550; 82784; 82945; 83605; 83873; 83916; 84157; 84484; 85025; 85610; 85730; 86403; 86592; 86617; 87015; 87070; 87102; 87116; 87206; 87255; 87529; 87798; 89051; 93005; 95816; 96360; 96361; 96365; 96375; 96376; 97161; 97165; 99285; A9270; A9577; G0378; J0131; J7040; J7120

== ENCOUNTER 2022-04-13 14:53 | Outpatient (CLI) | payer OTHER, SELFPAY ==
--- NOTE | ~2022-04-13 | MM_ITS ---
EXAMINATION: MM screening jennifer BI w maria isabel HISTORY: Screening mammogram TECHNIQUE: Craniocaudal and mediolateral oblique 3-D tomosynthesis images were obtained and synthetic 2-D images were generated. CAD analysis was submitted and interpreted. COMPARISON: 02/20/2020, 01/22/2019, 11/08/2017 bilateral screening mammogram examinations BREAST PARENCHYMAL COMPOSITION: There are scattered areas of fibroglandular density. FINDINGS: Occasional benign calcifications. There is no evidence of suspicious mass, calcification, o r architectural distortion to suggest malignancy in either breast. There has been no suspicious inter eratso change. IMPRESSION: 1. No mammographic evidence of malignancy. 2. Recommend routine screening mammography in one year. BI-RADS Category 2: Benign finding(s). Reviewed, dictated and finalized at location A.
== END 2022-04-13 14:54 | disposition home or self-care (01) ==
PROVIDERS: PCP Family Medicine; Visit Provider Family Medicine
DX: Z12.31 Encounter for screening mammogram for malignant neoplasm of breast (principal)
CPT/HCPCS: 77063; 77067

== ENCOUNTER 2022-07-14 00:38 | Day surgery (SDC) | payer OTHER, SELFPAY ==
[2022-07-11 09:22] VITALS: BMI 42.5
--- NOTE | 2022-07-11 09:49 | PC.NURSE ---
Report to the Outpatient Waiting Room, entrance under the green pavilion located off [facility], at time 0900 on date _07/14/22. OR Time: 1100__. Time changes happen often and if your time is changed the preop area will call you the afternoon before. - You and your visitor will be asked to self-screen and do not enter if you have any COVID symptoms. - Only one visitor and NO children visitors are allowed at this time. - The patient visitor is requested to leave or wait in car when not with patient due to restrictions. - A mask is required within the hospital. Patients may have clear liquids (water, carbonated beverages, clear teas, apple juice) until 3 hours prior to surgery with a maximum of 20 ounces. - No food from midnight until time of surgery - Infants may have breast milk until 4 hours before surgery, formula 6 hours prior to surgery. - Children will be allowed to drink immediately following surgery. If applicable, please bring a bottle or sippy cup to assist with drinking. Juice, water, soda, and popsicles are readily available. For infants on formula, please bring formula the day of surgery. Pacifiers are allowed. Take the following medications with a SIP of water the morning of surgery: metoprolol, anti-psychotic, anxiety_ Medications to discontinue per physician _pt checking on meloxicam with dr rich_ Date to take last dose Please no make-up, nail romanian, hairspray, perfume, deodorant, or body powder the day of surgery. No jewelry (including any body piercings) or valuables the day of surgery, leave them at home. Please take a shower or bath the night before, or the morning of, surgery with an antibacterial soap. Wear comfortable, loose fitting clothing. Children are encouraged to wear pajamas. - Jewelry must be removed prior to entering the operating room. Rings and piercings that are not removed may be cut off. - The hospital will not accept responsibility for valuables. - Please leave all valuables, including medications, at home the day of surgery. If you are going home after surgery, a licensed [employer] driver must drive you home. - NO public transportation without another adult. - We recommend that an adult stay with you for 24 hours following discharge. - We also recommend that you do not drive, make important decision, drink alcoholic beverages, or take any drugs that were not prescribed by your health care provider for at least 24 hours after your discharge time. For Pediatric surgeries, we recommend two adults accompany the child home (only one inside the building at this time). Follow any additional instructions given to you from your surgeon. If you or anyone in your household have experienced Covid symptoms in the past week, please notify your surgeon or the nurse liaison at the phone number below for possible testing. Telephone instructions given to Jess Chávez and asked if any additional questions and then verbalized understanding. Patient advised to call surgeon office or pre surgery nurse liaison [phone] if any additional questions.
--- NOTE | ~2022-07-14 | XR_ITS ---
XR surgery orthopedic 07/14/2022 11:38 Right hallux arthroplasty TECHNIQUE: Fluoroscopy used during right foot hallux arthroplasty performed by [Gregorio Hess JR MD] on 07/14/2022. 4 seconds of fluoroscopy with 4 fluoroscopic images. images captured. ] FINDINGS: Correlate with procedure note. IMPRESSION: Fluoroscopy used during right foot hallux arthroplasty. Please refer to procedural note f or details. Reviewed, dictated and finalized at location A. IMPRESSION: Fluoroscopy used during right foot hallux arthroplasty. Please refe r to procedural note for details.
--- NOTE | 2022-07-14 07:59 | WPDANESEPPF ---
Anes - Initial Pre Proc Eval Procedure: Operation Date: 07/14/22 11:00 Proposed Procedures p Arthroplasty Right Hallux Interphalangeal Joint - Gregorio Hess JR, MD Date/Time: 07/14/22 07:59 Surgeon: Gregorio Hess JR, MD Pre Op Diagnosis: chronic ulcer right hallux Patient Data Age: 62 Gender: F Height: 1.65 m Weight: 116 kg Allergies Allergy/AdvReac Type Severity Reaction Status Date / Time cefixime Allergy Intermediate Itching Verified 07/11/22 09:53 and rash ciprofloxacin Allergy Intermediate Unknown Verified 07/11/22 09:53 clarithromycin Allergy Intermediate Unknown Verified 07/11/22 09:53 erythromycin base Allergy Intermediate itching Verified 07/11/22 09:53 and rash Penicillins Allergy Intermediate itching Verified 07/11/22 09:54 and rash sulfamethizole Allergy Intermediate itching Verified 07/11/22 09:54 and rash sulfamethoxazole Allergy Intermediate ITCHING Verified 06/19/22 15:49 AND RASH tetracycline Allergy Intermediate Itching Verified 07/11/22 09:52 and rash trimethoprim Allergy Intermediate ITCHING Verified 06/19/22 15:49 AND RASH Home Medications Medication Instructions Recorded Confirmed Type clonazepam 0.5 mg tablet (Klonopin) 0.5 mg PO DAILY 09/05/19 07/11/22 History mirtazapine 45 mg disintegrating 45 mg PO HS 09/05/19 07/11/22 History tablet (Remeron SolTab) lamotrigine 100 mg tablet 100 mg PO DAILY 09/08/19 07/11/22 History clonazepam 1 mg tablet 1 mg PO HS 02/07/21 07/11/22 History lamotrigine 200 mg tablet 200 mg PO HS 02/07/21 07/11/22 History lidocaine 5 % topical patch 2 patch topical DAILY #180 ea 02/07/21 07/11/22 Rx lithium carbonate 600 mg capsule 600 mg PO HS 02/07/21 07/11/22 History trazodone 50 mg tablet 50 mg PO HS 02/07/21 07/11/22 History metoprolol succinate 50 mg 50 mg PO DAILY #90 tabs 08/29/21 07/11/22 Rx tablet,extended release 24 hr atorvastatin 40 mg tablet 40 mg PO DAILY #90 tabs 01/16/22 07/11/22 Rx irbesartan 300 mg tablet 300 mg PO DAILY #90 tabs 03/13/22 07/11/22 Rx meloxicam 15 mg tablet 15 mg PO DAILY #90 tabs 03/20/22 07/11/22 Rx omeprazole 40 mg capsule,delayed 40 mg PO DAILY #90 caps 03/24/22 07/11/22 Rx release montelukast 10 mg tablet See Rx Instructions .Route 06/27/22 07/11/22 Rx .COMPLEX #90 tabs Patient hx anesthesia problems: none Family hx anesthesia problems: none Results Review: All pre-operative results and documents have been reviewed as part of the pre-operative evaluation. [facility] Past Medical History Medical History Anxiety and depression B12 deficiency Bipolar disorder Cerebral ventriculomegaly Since 1986 Chronic GERD Diastolic dysfunction Echocardiogram 09/2020: Grade 1 diastolic dysfunction EF 74%, mild concentric left ventricular hypertrophy, mild pulmonary hypertension with RVSP of 38, mild aortic valve stenosis, mild mitral valve prolapse Essential (primary) hypertension Hyperlipidemia Major depressive disorder Obesity Osteoarthritis of knees, bilateral Other and unspecified hyperlipidemia Schizoaffective disorder The patient is unsure if she has schizophrenia versus schizoaffective disorder Syncope and collapse Surgical History Surgical History History of mastoidectomy (~1993) Right History of myringotomy History of myringotomy tubes in the right ear x6 with the 1st surgery 1986 Hx of foot surgery Left foot w/ [place] procedure Normal colonoscopy (01/04/18) Dr. Ruiz Family History Family History Father Hypertension Hyperlipidemia Mother Hypertension Hyperlipidemia Arthritis Dementia Social History Social History Social History: The patient lives with her 17-year-old dog. 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
[2022-07-14 09:03] VITALS: BP 144/64; PULSE 68; RESP 18; TEMP 36.6; O2SAT 99
[2022-07-14] MEDS: LACTATED RINGERS 1,000 ML 30 ML IV CONT (09:22)
--- NOTE | 2022-07-14 10:31 | WPDHPUPDATE1 ---
History and Physical Update Update Date/Time: 07/14/22 10:31 History and Physical has been reviewed, including an updated exam of the patient. There are NO changes in the patient's condition. Risks, benefits, and alternatives have been discussed and questions answered. Patient agrees to proceed with procedure.
[2022-07-14] MEDS: CLINDAMYCIN 900 MG/D5W 50 ML 900 MG/50 ML PIGGYBACK 50 MG IVPB (11:07)
[2022-07-14] MEDS: LIDOCAINE HCL 2% PF INJ 5 ML VIAL 20 ML INFILTRATE (11:34)
[2022-07-14 11:50] VITALS: BP 141/63; PULSE 65; RESP 14; O2SAT 100
--- NOTE | 2022-07-14 12:11 | P.OP_ITS ---
Procedure Note - Detailed Date of Procedure 07/14/22 Pre-op Diagnosis chronic ulcer right hallux Post-op Diagnosis Same Procedure Performed Arthroplasty of the interphalangeal joint of the right hallux with k wire stabilization Surgeon Gregorio Hess JR, DPOliverio Indications Chronic non healing ulcer right hallux Description of Procedure Under mild sedation, the patient was brought to the operating room, placed on the operating table in the supine position. A pneumatic ankle tourniquet was placed about the patient's ankle. Following IV sedation, I performed a proximal first metatarsal Peña Block with 20cc's of a one to one mix of 0.5% Marcaine plain and 2% Lidocaine plain. The foot was then scrubbed, prepped, and draped in the usual aseptic manner. An Esmarch bandage was then used to examine the patient's foot and pneumatic ankle tourniquet was then inflated. Surgery began in the following manner. Attention was directed to the hallux where a 3cm incision was made just proximal to the nail fold extending to the base of the hallux. A transverse tenotomy was created dorsal to the interphalangeal joint, next the head of the proximal phalanx was resected with an sagittal saw blade. Next, I drove a 0.062 K wire from the base of the distal phalanx exiting the hallux and then retrograded the wire into the proximal phalanx and head of the first metatarsal. Fluoroscopy was used to make sure that the digit and implant were both appropriately positioned within the canals of the proximal and distal phalanges and first metatarsal. I repaired the extensor tendon with 2.0 3.0 PDS. I reapproximated the subcutaneous structures with 4.0 Vicryl and the skin with 4- 0 Prolene in harizontal mattres suture technique. Upon completion of the procedure, the incision was dressed with Adaptic, 4 x 4's, Kerlix, and Coban. The pneumatic ankle tourniquet was then deflated and a prompt hyperemic response noted to all digits of the foot. A surgical shoe was then applied. The patient did very well with the procedure and the anesthesia. The patient was transferred to the recovery room with vital signs stable and vascular status intact to all toes of the affected foot. Following a period of postoperative monitoring, the patient will be discharged home on the following written and oral postoperative instructions: 1. Keep the dressing clean, dry, and intact. Use a cast protector bag with showers. 2. The patient should use a surgical shoe for ambulation postoperatively. 3. The patient should be on bedrest with bathroom privileges and elevate the affected foot when at rest. 4. The patient to contact Dr. Hess for all postop care and if any problems arise. 5. Take Tylenol every 4 to 6 hours as needed for pain. Implants one 0.062 k wire Estimated Blood Loss 1 Pathology None sent Complications No immediate complications Condition Stable Disposition Same day
[2022-07-14 12:20] VITALS: BP 145/94; PULSE 63; RESP 14; O2SAT 98
--- NOTE | 2022-07-14 12:45 | SUR.PHASEII ---
PATIENT STATES SHE HAS SOME DIZZINESS WHEN SHE MOVES HER HEAD WHICH IS A LITTLE MORE THAN HER BASELINE. UPPER EXTREMITIES TREMORS AT BASELINE PER PT.
[2022-07-14 12:50] VITALS: BP 138/66; PULSE 60; RESP 14
[2022-07-14 13:00] VITALS: BP 160/64; PULSE 58; RESP 14
--- NOTE | 2022-07-14 13:25 | SUR.PHASEII ---
1250 PATIENT STATES NO LONGER DIZZY.
== END 2022-07-14 13:15 | disposition home or self-care (01) ==
PROVIDERS: PCP Family Medicine; Visit Provider Podiatrist Foot & Ankle Surgery
PROC: (CPT 28160; principal; 2022-07-14 11:00)
DX: L97.519 Non-pressure chronic ulcer of other part of right foot with unspecified severity (principal); M54.10 Radiculopathy, site unspecified; I11.9 Hypertensive heart disease without heart failure; E78.5 Hyperlipidemia, unspecified; F41.8 Other specified anxiety disorders; F20.9 Schizophrenia, unspecified; E78.49 Other hyperlipidemia; K21.9 Gastro-esophageal reflux disease without esophagitis; E66.01 Morbid (severe) obesity due to excess calories; Z68.41 Body mass index [BMI] 40.0-44.9, adult
CPT/HCPCS: 28160; 99199; A9270; C1713; J0690; J2704; J3010; J7120

== ENCOUNTER 2022-07-14 18:33 | Emergency (ER) | payer OTHER, SELFPAY ==
[2022-07-14 18:38] VITALS: BP 153/73; PULSE 73; RESP 16; TEMP 36.6; O2SAT 100
--- NOTE | 2022-07-14 21:22 | ED.LOWEXIN ---
HPI - Extremity Injury (Lower) General Chief Complaint: Extremity Injury, Lower Stated Complaint: post op complications Time Seen by Provider: 07/14/22 21:00 History of Present Illness HPI Narrative: Patient presents after she had toe surgery with her shactor helper this morning, and she noticed that a pin was starting to come out of her toe. Related Data Home Medications Medication Instructions Recorded Confirmed clonazepam 0.5 mg tablet (Klonopin) 0.5 mg PO DAILY 09/05/19 07/14/22 mirtazapine 45 mg disintegrating 45 mg PO HS 09/05/19 07/14/22 tablet (Remeron SolTab) lamotrigine 100 mg tablet 100 mg PO DAILY 09/08/19 07/14/22 clonazepam 1 mg tablet 1 mg PO HS 02/07/21 07/14/22 lamotrigine 200 mg tablet 200 mg PO HS 02/07/21 07/14/22 lithium carbonate 600 mg capsule 600 mg PO HS 02/07/21 07/14/22 trazodone 50 mg tablet 50 mg PO HS 02/07/21 07/14/22 Allergies Allergy/AdvReac Type Severity Reaction Status Date / Time cefixime Allergy Intermediate Itching Verified 07/14/22 09:26 and rash ciprofloxacin Allergy Intermediate Unknown Verified 07/14/22 09:26 clarithromycin Allergy Intermediate Unknown Verified 07/14/22 09:26 erythromycin base Allergy Intermediate itching Verified 07/14/22 09:26 and rash Penicillins Allergy Intermediate itching Verified 07/14/22 09:26 and rash sulfamethizole Allergy Intermediate itching Verified 07/14/22 09:26 and rash sulfamethoxazole Allergy Intermediate ITCHING Verified 07/14/22 09:26 AND RASH tetracycline Allergy Intermediate Itching Verified 07/14/22 09:26 and rash trimethoprim Allergy Intermediate ITCHING Verified 07/14/22 09:26 AND RASH Review of Systems Review of Systems: M/S: Pin coming out of right great toe NEURO: [No focal numbness or weakness] PMFSH Past Medical History Medical History Anxiety and depression B12 deficiency Bipolar disorder Cerebral ventriculomegaly Since 1986 Chronic GERD Diastolic dysfunction Echocardiogram 09/2020: Grade 1 diastolic dysfunction EF 74%, mild concentric left ventricular hypertrophy, mild pulmonary hypertension with RVSP of 38, mild aortic valve stenosis, mild mitral valve prolapse Essential (primary) hypertension Hyperlipidemia Major depressive disorder Obesity Osteoarthritis of knees, bilateral Other and unspecified hyperlipidemia Schizoaffective disorder The patient is unsure if she has schizophrenia versus schizoaffective disorder Syncope and collapse Surgical History Surgical History History of mastoidectomy (~1993) Right History of myringotomy History of myringotomy tubes in the right ear x6 with the 1st surgery 1986 Hx of foot surgery Left foot w/ [place] procedure Normal colonoscopy (01/04/18) Dr. Ruiz Family History Family History Father Hypertension Hyperlipidemia Mother Hypertension Hyperlipidemia Arthritis Dementia Social History Social History Social History: The patient lives with her 17-year-old dog. 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 She will not admit to a prior history of smoking but according to prior records the patient did briefly smoked for couple of years when she was young. She denies any alcohol use or illicit substance use. She quilts in her free time. Primary care physician: Dr. Lino Kraft Code status: Full code Years smoked: 2 Smoking status: Never smoker Tobacco type: cigarettes Second hand tobacco smoke exposure: No Smoking end date: 10/22/81 Alcohol intake: never Substance use: never Substance use type: does not use Gender identity (if verbalized by the patient): Female Sexual Orientation (if Verbalized by the Patient): Straight or Heterosexual Spiritual care concerns: No Exam
--- NOTE | 2022-07-14 22:09 | PC.NURSE ---
Pt refused crutches states she has devices at home such a a knee roller.
== END 2022-07-14 23:23 | disposition home or self-care (01) ==
PROVIDERS: Emergency Provider Emergency Medicine; PCP Family Medicine
DX: T84.223A Displacement of internal fixation device of bones of foot and toes, initial encounter (principal); I10 Essential (primary) hypertension; E78.5 Hyperlipidemia, unspecified; G93.89 Other specified disorders of brain; M17.0 Bilateral primary osteoarthritis of knee; E53.8 Deficiency of other specified B group vitamins; F41.9 Anxiety disorder, unspecified; F31.9 Bipolar disorder, unspecified; F25.9 Schizoaffective disorder, unspecified; Z87.891 Personal history of nicotine dependence; Y79.2 Prosthetic and other implants, materials and accessory orthopedic devices associated with adverse incidents
CPT/HCPCS: 99282

== ENCOUNTER 2022-08-15 11:45 | Emergency (ER) | payer OTHER, SELFPAY ==
[2022-08-15] VITALS (19 sets, daily range): BP systolic 122–148; BP diastolic 59–81; PULSE 58–68; RESP 14–25; TEMP 36.2; O2SAT 96–100
--- NOTE | ~2022-08-15 | XR_ITS ---
EXAMINATION: XR knee LT 3V DATE: 08/15/2022 12:51 INDICATION: Anterior left knee pain post fall 3 days prior TECHNIQUE: Anteroposterior, oblique and crosstable lateral views of the left knee were obtained COMPARISON: None. FINDINGS: Alignment is normal. No fracture. Compartmental osteoarthritis with moderate size marginal osteophyt es as well as small central subchondral osteophytes along the medial and lateral femoral condyles. Mo derate joint space. The lateral aspect of the patellofemoral articulation with additional central sub chondral osteophytes at the trochlear groove. Prominent osteophyte and adjacent heterotopic ossicle v ersus loose body along the cephalad margin of the patella. Small left knee joint effusion without lay ering lipohemarthrosis. Soft tissues are unremarkable. IMPRESSION: 1. Moderate patellofemoral compartment predominant tricompartmental osteoarthritis at the left knee. No acute osseous abnormality. Reviewed, dictated and finalized at location A. IMPRESSION: 1. Moderate patellofemoral compartment predominant tricompartmental osteoarthri tis at the left knee. No acute osseous abnormality.
--- NOTE | ~2022-08-15 | XR_ITS ---
EXAMINATION: XR hip LT 1V w AP pelvis DATE: 08/15/2022 12:51 INDICATION: Left hip pain. Fall. TECHNIQUE: An anteroposterior view of the pelvis and single view of left hip were obtained. COMPARISON: None. FINDINGS: Bone alignment is normal. No fracture. There is severe lumbar spondylosis. There is mild os teoarthritis of the hips. IMPRESSION: 1. Mild osteoarthritis of the hips. Reviewed, dictated and finalized at location A.
--- NOTE | ~2022-08-15 | CT_ITS ---
EXAMINATION: CT brain wo con DATE: 08/15/2022 12:40 INDICATION: Left-sided headache. Fall. TECHNIQUE: Computed tomography (CT) of the head was performed without intravenous contrast. The mA wa s adjusted according to patient size. Iterative reconstruction technique was employed. The dose-lengt h product was 681.00 mGy-cm. COMPARISON: Head CT 02/07/2021, brain MRI 02/08/2021 FINDINGS: The ventricles are dilated out of proportion to the size of the sulci. There is no intracra nial hemorrhage, acute infarction, or abnormal intracranial mass lesion. The orbits are normal. There is a mucous retention cyst in left maxillary sinus. There are changes of right mastoidectomy. IMPRESSION: 1. Stable ventriculomegaly. Correlate clinically for normal pressure hydrocephalus. Reviewed, dictated and finalized at location A. IMPRESSION: 1. Stable ventriculomegaly. Correlate clinically for normal pressure hydrocepha mary.
--- NOTE | 2022-08-15 12:23 | ED.GENADULT ---
HPI - General Adult General Chief complaint: Fall Stated complaint: Fall , Left Side Pain Time Seen by Provider: 08/15/22 11:56 History of Present Illness HPI narrative: this is a 62-year-old female presenting to ED after a fall on 5 days ago. Patient states that she tripped over a curb, fell forward onto her left knee her left hip and then struck her head on the ground. patient denies loss of conscious. She denies use of blood thinners. Since then she has been having a headache over the left side of her head. Patient also notes that she has been having vertiginous symptoms for the last week. They are triggerable by head movements. They are not associated with double vision, dysphagia, dysarthria, or dystaxia. Patient denies recent URI symptoms. She denies nausea vomiting or diarrhea Related Data Home Medications Medication Instructions Recorded Confirmed clonazepam 0.5 mg tablet (Klonopin) 0.5 mg PO DAILY 09/05/19 07/14/22 mirtazapine 45 mg disintegrating 45 mg PO HS 09/05/19 07/14/22 tablet (Remeron SolTab) lamotrigine 100 mg tablet 100 mg PO DAILY 09/08/19 07/14/22 clonazepam 1 mg tablet 1 mg PO HS 02/07/21 07/14/22 lamotrigine 200 mg tablet 200 mg PO HS 02/07/21 07/14/22 lithium carbonate 600 mg capsule 600 mg PO HS 02/07/21 07/14/22 trazodone 50 mg tablet 50 mg PO HS 02/07/21 07/14/22 Allergies Allergy/AdvReac Type Severity Reaction Status Date / Time cefixime Allergy Intermediate Itching Verified 08/15/22 12:30 and rash ciprofloxacin Allergy Intermediate Unknown Verified 08/15/22 12:30 clarithromycin Allergy Intermediate Unknown Verified 08/15/22 12:30 erythromycin base Allergy Intermediate itching Verified 08/15/22 12:30 and rash Penicillins Allergy Intermediate itching Verified 08/15/22 12:30 and rash sulfamethizole Allergy Intermediate itching Verified 08/15/22 12:30 and rash sulfamethoxazole Allergy Intermediate ITCHING Verified 08/15/22 12:30 AND RASH tetracycline Allergy Intermediate Itching Verified 08/15/22 12:30 and rash trimethoprim Allergy Intermediate ITCHING Verified 08/15/22 12:30 AND RASH Review of Systems Review of Systems: CONSTITUTIONAL: Denies night sweats. EYES: No eye pain ENT: Denies rhinorrhea CARDIOVASCULAR: Denies palpitations RESPIRATORY: Denies hemoptysis GASTROINTESTINAL: Denies hematemesis GENITOURINARY: Denies hematuria. SKIN: Denies rash MUSCULOSKELETAL: Denies myalgia. NEUROLOGIC: Denies weakness. PSYCHIATRIC: Denies delusions PMFSH Past Medical History Medical History Anxiety and depression B12 deficiency Bipolar disorder Cerebral ventriculomegaly Since 1986 Chronic GERD Diastolic dysfunction Echocardiogram 09/2020: Grade 1 diastolic dysfunction EF 74%, mild concentric left ventricular hypertrophy, mild pulmonary hypertension with RVSP of 38, mild aortic valve stenosis, mild mitral valve prolapse Essential (primary) hypertension Hyperlipidemia Major depressive disorder Obesity Osteoarthritis of knees, bilateral Other and unspecified hyperlipidemia Schizoaffective disorder The patient is unsure if she has schizophrenia versus schizoaffective disorder Syncope and collapse Surgical History Surgical History History of mastoidectomy (~1993) Right History of myringotomy History of myringotomy tubes in the right ear x6 with the 1st surgery 1986 Hx of foot surgery Left foot w/ [place] procedure Normal colonoscopy (01/04/18) Dr. Ruiz Family History Family History Father Hypertension Hyperlipidemia Mother Hypertension Hyperlipidemia Arthritis Dementia Social History Social History Social History: The patient lives with her 17-year-old dog. 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
[2022-08-15] MEDS: HYDROcodone/acetaminophen (*CRX) 5-325 MG TABLET 1 TAB PO (12:28)
--- NOTE | 2022-08-15 12:32 | PC.NURSE ---
Patient refusing meclizine, states it doesn't work.
--- NOTE | 2022-08-15 12:37 | PC.NURSE ---
Patient to radiology
[2022-08-15] MEDS: METOCLOPRAMIDE HCL 10 MG TABLET PO (14:10)
[2022-08-15] MEDS: SCOPOLAMINE 1.5 MG PATCH TRANSDERM (14:10)
== END 2022-08-15 16:04 | disposition home or self-care (01) ==
PROVIDERS: Emergency Provider Emergency Medicine; PCP Family Medicine
DX: S09.90XA Unspecified injury of head, initial encounter (principal); R26.89 Other abnormalities of gait and mobility; R42 Dizziness and giddiness; I10 Essential (primary) hypertension; G93.89 Other specified disorders of brain; E78.5 Hyperlipidemia, unspecified; K21.9 Gastro-esophageal reflux disease without esophagitis; E53.8 Deficiency of other specified B group vitamins; M17.0 Bilateral primary osteoarthritis of knee; M16.0 Bilateral primary osteoarthritis of hip; F41.9 Anxiety disorder, unspecified; F31.9 Bipolar disorder, unspecified; F25.9 Schizoaffective disorder, unspecified; Z87.891 Personal history of nicotine dependence; W10.1XXA Fall (on)(from) sidewalk curb, initial encounter
CPT/HCPCS: 70450; 73501; 73562; 99284; A9270

== ENCOUNTER 2022-08-17 06:55 | Observation (INO) | payer OTHER, SELFPAY ==
[2022-08-17] VITALS (29 sets, daily range): BP systolic 99–172; BP diastolic 56–90; PULSE 49–78; RESP 12–27; TEMP 36.4–36.8; O2SAT 98–100; BMI 40.8
--- NOTE | ~2022-08-17 | US_ITS ---
EXAMINATION: US carotid duplex BI DATE: 08/18/2022 08:42 INDICATION: Dizziness TECHNIQUE: Grayscale, color Doppler, and pulsed Doppler images of the cervical carotid arteries were obtained. The degree of vessel stenosis is placed in one of the following categories: normal, <50%, 5 0-69%, >=70% but less than near-occlusion, near-occlusion, or total occlusion. Note that percent sten osis relative to normal distal artery lumen diameter is indirectly measured from velocity measurement s as described by Tamir, et al. Radiology 2003; 229:340-346. Notes: Normal: Peak systolic velocity <125 centimeters/sec and no plaque <50%. Peak systolic velocity <125 ( EDV <40; ICA/CCA PSV ratio <2.0; used these factors only a tandem lesions or low cardiac output or co ntralateral disease) 50-69 %: PSV 125-230 (EDV 40-100; ratio 2-4) >= 70% but less than near occlusion: PSV greater than 230 (EDV > 100; ratio> 4.0) Near Occlusion: PSV that is variable; markedly narrowed lumen Occlusion: Absent flow on color/spectral Doppler and no lumen on llamas scale. COMPARISON: None. FINDINGS: RIGHT: The right common carotid artery (CCA) peak systolic velocity (PSV) is 89 cm/s. The right internal car otid artery (ICA) PSV is 97 cm/s. The right ICA end-diastolic velocity (EDV) is 29 cm/s. The right IC A/CCA PSV ratio is 1.1. The external carotid artery (ECA) PSV is 161 cm/s. There is antegrade flow in the right vertebral artery. LEFT: The left CCA PSV is 113 cm/s. The left ICA PSV is 68 cm/s. The left ICA EDV is 17 cm/s. The left ICA/ CCA PSV ratio is 0.6. The ECA PSV is 87 cm/s. There is antegrade flow in the left vertebral artery. IMPRESSION: 1. Less than 50% stenosis in the right internal carotid artery by sonographic criteria. 2. Less than 50% stenosis in the left internal carotid artery by sonographic criteria. Reviewed, dictated and finalized at location D. IMPRESSION: 1. Less than 50% stenosis in the right internal carotid artery by sonographic kortney h[place]. 2. Less than 50% stenosis in the left internal carotid artery by sonographic peter simons.
--- NOTE | ~2022-08-17 | CT_ITS ---
EXAMINATION: CT brain wo con DATE: 08/17/2022 09:24 INDICATION: Dizziness. Ventriculomegaly. TECHNIQUE: Computed tomography (CT) of the head was performed without intravenous contrast. Sagittal and coronal reconstructions were performed. The mA was adjusted according to patient size. Iterative reconstruction technique was employed. The dose-length product was 756.67 mGy-cm. COMPARISON: head CT dated 08/10 03/12 and 03/11/2020 and brain MR dated 02/08/2021 FINDINGS: No interval change in symmetric prominent dilation of the ventricles which is disproportionate to the sulci. No acute intracranial hemorrhage, acute infarction or abnormal extra axial fluid collection. No mass/mass effect. Small mucous retention cyst in the bilateral maxillary sinuses. The orbits are n ormal. Status post right mastectomy. Left mastoid air cells and bilateral middle ear cavities are kj ar. IMPRESSION: 1. Stable ventriculomegaly. Correlate clinically for normal pressure hydrocephalus (NPH: clinical tri ad ataxia/gait disturbance, dementia, urinary incontinence). No other acute intracranial process. Reviewed, dictated and finalized at location A. IMPRESSION: 1. Stable ventriculomegaly. Correlate clinically for normal pressure hydrocepha mary (NPH: clinical triad ataxia/gait disturbance, dementia, urinary incontinenc e). No other acute intracranial process.
--- NOTE | ~2022-08-17 | CT_ITS ---
EXAMINATION: CTA brain carotid DATE: 08/17/2022 11:03 CDT INDICATION: Dizziness. TECHNIQUE: Computed tomographic angiography (CTA) of the head was performed with 100 mL Omnipaque-350 intravenous contrast. CTA of the neck was performed with intravenous contrast. The dose-length produ ct was 1170.96 mGy-cm. Maximum intensity projection and volume rendered 3D-reconstructions were creat ed by the technologist on a separate workstation. COMPARISON: CT dated 08/17/2022. FINDINGS: HEAD CTA: There is ventriculomegaly. The anterior, middle and posterior cerebral arteries are symmetr ic without evidence for aneurysm, significant stenosis or occlusion. NECK CTA: Mild emphysema noted in the lung apices. Visualized aspects of the aorta are unremarkable. There is mild atherosclerosis of the carotid arteries. Thyroid gland is unremarkable no cervical lymp hadenopathy. Vertebral arteries are symmetric and codominant. There is 49% stenosis of the proximal right internal carotid artery relative to normal distal artery lumen diameter (NASCET criteria). There is less than 10% stenosis of the proximal left internal carot id artery relative to normal distal artery lumen diameter. IMPRESSION: 1. 49% stenosis of the proximal right internal carotid artery relative to normal distal artery lumen diameter (NASCET criteria). 2. Less than 10% stenosis of the proximal left internal carotid artery relative to normal distal carlos ry lumen diameter. 3: No significant abnormality of the intracranial arteries. Reviewed, dictated and finalized at location B. IMPRESSION: 1. 49% stenosis of the proximal right internal carotid artery relative to tracey l distal artery lumen diameter (NASCET criteria). 2. Less than 10% stenosis of the proximal left internal carotid artery relative to normal distal artery lumen diameter. 3: No significant abnormality of the intracranial arteries.
--- NOTE | ~2022-08-17 | US_ITS ---
EXAMINATION: US venous doppler [facility] DATE: 08/17/2022 18:04 INDICATION: Bilateral lower limb swelling TECHNIQUE: Tran scale images without and with compression and Doppler images of the bilateral lower e xtremity veins were obtained. COMPARISON: None FINDINGS: The right common femoral vein, profunda femoral vein, femoral vein, popliteal vein, peroneal trunk, p osterior tibial veins, and greater saphenous vein are patent. The left common femoral vein, profunda femoral vein, femoral vein, popliteal vein, peroneal trunk, po sterior tibial veins, and greater saphenous vein are patent. A left Pierson's cyst is noted. IMPRESSION: 1. Patent bilateral lower extremity veins. No evidence of deep venous thrombosis. Reviewed, dictated and finalized at location A. IMPRESSION: 1. Patent bilateral lower extremity veins. No evidence of deep venous thrombosi s.
--- NOTE | ~2022-08-17 | MR_ITS ---
EXAMINATION: MR brain/brain stem wo/w con DATE: 08/18/2022 08:10 INDICATION: Dizziness. Falls. TECHNIQUE: Magnetic resonance imaging (MRI) of the brain and brainstem was performed without and with 20 mL MultiHance intravenous contrast. COMPARISON: Brain MRI 02/08/2021 FINDINGS: There are scattered areas of nonspecific increased T2-weighted signal intensity in the cere bral white matter, which is within normal limits for the patient's age. There is no intracranial hemo rrhage, acute infarction, or abnormal intracranial mass lesion. There is chronic dilatation of the ve ntricles out of proportion to the size of the sulci. The orbits are normal. There is mild mucosal thi ckening in the maxillary sinuses. The mastoid air cells are normal. IMPRESSION: 1. Stable ventriculomegaly. Correlate clinically for normal pressure hydrocephalus. Reviewed, dictated and finalized at location E. IMPRESSION: 1. Stable ventriculomegaly. Correlate clinically for normal pressure hydrocepha mary.
--- NOTE | 2022-08-17 08:36 | ECG_ITS ---
Measurements Intervals [place] Rate: 57 P: 41 CA: 161 QRS: -5 QRSD: 106 T: 47 QT: 423 QTc: 415 Interpretive Statements SINUS BRADYCARDIA POSSIBLE LEFT VENTRICULAR HYPERTROPHY [VOLTAGE CRITERIA PLUS LAE OR QRS WIDENING] NONSPECIFIC ST AND T-WAVE ABNORMALITY COMPARED TO ECG 02/07/2021 17:23:55 SINUS BRADYCARDIA NOW PRESENT Electronically Signed On 08-17-2022 14:28:08 CDT by Sammy Bay M.D.
[2022-08-17 08:52] LABS: Basophils Absolute Auto 0.1 K/mm3 (0.0-0.1); Basophils Percent Auto 0.9 % (0.2-1.2); Eosinophils Absolute Auto 0.3 K/mm3 (0-0.3); Eosinophils Percent Auto 4.1 % (0-4.4); Hematocrit 38.2 % (37.0-47.0); Hemoglobin 12.2 g/dL (12.0-15.0); Immature Granulocyte Absolute 0.04 K/mm3 (0.00-0.031); Immature Granulocyte Percent A 0.6 % (0-0.5); Lymphocytes Absolute Auto 1.67 K/mm3 (0.9-3.2); Lymphocytes Percent Auto 23.9 % (18.3-44.2); Mean Corpuscular HGB Conc 31.9 g/dl (32-36); Mean Corpuscular Hemoglobin 30.4 pg (26-34); Mean Corpuscular Volume 95.3 fl (80-100); Mean Platelet Volume 9.9 fl (7.4-10.4); Monocytes Absolute Auto 0.5 K/mm3 (0.1-0.6); Neutrophils Absolute Auto 4.5 K/mm3 (1.3-6.7); Neutrophils Percent Auto 63.5 % (45.5-73.1); Platelet Count Result 288 k/mm3 (150-375); Red Blood Count 4.01 M/mm3 (4.2-5.4); Red Cell Distribution Width 14.6 % (11.5-14.5)
[2022-08-17 09:02] LABS: Alanine Aminotransferase 20 U/L (6-35); Albumin Level 4.7 g/dL (3.5-5.1); Alkaline Phosphatase 100 U/L (38-126); Anion Gap 13 mmol/L (8-16); Aspartate Amino Transferase 28 U/L (14-36); Bilirubin,Total 0.4 mg/dL (0.2-1.3); Blood Urea Nitrogen 18 mg/dL (7-17); Calcium 9.9 mg/dL (8.4-10.2); Carbon Dioxide 24 mmol/L (22-30); Chloride 103 mmol/L (98-107); Estimated CRCL calculation 62 ml/min; Estimated Glomerular Filt Rate 50; Glucose 109 mg/dL (65-110); Potassium 4.1 mmol/L (3.4-5.0); Sodium 140 mmol/L (137-145)
--- NOTE | 2022-08-17 09:07 | ED.FALL ---
HPI - Fall General Chief Complaint: Fall Stated Complaint: fall Time Seen by Provider: 08/17/22 08:54 History of Present Illness HPI Narrative: Patient is a 62-year-old female with a history of cerebral ventriculomegaly for which she has seen neurology in the past here for evaluation of a fall with head injury earlier today. Patient states that she was using her walker to get into her bed when she felt dizzy, room spinning sensation, causing her to fall and hit her head against the ground. Patient was unable to get up by herself due to dizziness, required assistance from EMS. She presented here directly afterwards. Patient has been quite dizzy for the past week. She was seen here 2 days ago and felt better after medications in the ED although she was offered admission, patient elected to go home at that time. Patient states that the dizziness has not gotten much better at home. She denies any chest pain, shortness of breath, fevers or chills. She has seen a neurologist in the past, but does not have a follow-up appointment until August of next year. Related Data Home Medications Medication Instructions Recorded Confirmed clonazepam 0.5 mg tablet (Klonopin) 0.5 mg PO DAILY 09/05/19 08/17/22 lamotrigine 100 mg tablet 100 mg PO DAILY 09/08/19 08/17/22 clonazepam 1 mg tablet 1 mg PO HS 02/07/21 08/17/22 lamotrigine 200 mg tablet 200 mg PO HS 02/07/21 08/17/22 lithium carbonate 600 mg capsule 600 mg PO HS 02/07/21 08/17/22 trazodone 50 mg tablet 50 mg PO HS 02/07/21 08/17/22 atorvastatin 40 mg tablet 40 mg PO HS 08/17/22 08/17/22 irbesartan 300 mg tablet 300 mg PO HS 08/17/22 08/17/22 lidocaine 5 % topical patch 2 patch topical DAILY PRN Pain 08/17/22 08/17/22 meloxicam 15 mg tablet 15 mg PO HS 08/17/22 08/17/22 metoprolol succinate 50 mg 50 mg PO HS 08/17/22 08/17/22 tablet,extended release 24 hr mirtazapine 30 mg tablet 30 mg PO HS 08/17/22 08/17/22 montelukast 10 mg tablet 10 mg PO HS 08/17/22 08/17/22 Allergies Allergy/AdvReac Type Severity Reaction Status Date / Time cefixime Allergy Intermediate Itching Verified 08/17/22 14:20 and rash ciprofloxacin Allergy Intermediate Unknown Verified 08/17/22 14:20 clarithromycin Allergy Intermediate Unknown Verified 08/17/22 14:20 erythromycin base Allergy Intermediate itching Verified 08/17/22 14:20 and rash Penicillins Allergy Intermediate itching Verified 08/17/22 14:20 and rash sulfamethizole Allergy Intermediate itching Verified 08/17/22 14:20 and rash sulfamethoxazole Allergy Intermediate ITCHING Verified 08/17/22 14:20 AND RASH tetracycline Allergy Intermediate Itching Verified 08/17/22 14:20 and rash trimethoprim Allergy Intermediate ITCHING Verified 08/17/22 14:20 AND RASH Review of Systems Review of Systems: Gen.: Reports dizziness. Denies fevers or chills Eyes: Denies eye pain or visual change ENT: Denies congestion Respiratory: Denies shortness of breath or cough CV: Denies chest pain or palpitations GI: Denies abdominal pain nausea, emesis or diarrhea denies burning, urgency, frequency or hematuria Musculoskeletal: Denies back pain or muscle pain Neuro: Denies numbness, tingling, weakness or focal weakness Skin: Denies rash Except as documented, all other systems reviewed and negative PMFSH Past Medical History Medical History Anxiety and depression B12 deficiency Bipolar disorder Cerebral ventriculomegaly Since 1986 Chronic GERD Diastolic dysfunction Echocardiogram 09/2020: Grade 1 diastolic dysfunction EF 74%, mild concentric left ventricular hypertrophy, mild pulmonary hypertension with RVSP of 38, mild aortic valve stenosis, mild mitral valve prolapse Essential (primary) hypertension Hyperlipidemia Major depressive disorder Obesity Osteoarthritis of knees, bilateral Other and unspecified hyperlipidemia Schizoaffective disorder The patient is unsure if sh
[2022-08-17] MEDS: MECLIZINE HCL 25 MG TABLET PO ×2 (09:59→17:23)
[2022-08-17] MEDS: SODIUM CHLORIDE 0.9% IV 1,000 ML 999 ML IV CONT (09:59)
[2022-08-17 11:50] LABS: SARS-CoV-2 RNA PCR Negative
--- NOTE | 2022-08-17 12:55 | PC.NURSE ---
This patient, Jess Chávez, was admitted to [facility] Surg Room 304-01. Patient/family oriented to hospital policies and general routines including ID bracelet, bed and alarms, visiting hours, pain management, procedures, bathroom and other care routines, personal items, smoking policy, room service/diet, and visiting hours. Information on how to activate the Rapid Response Team has been discussed. Patient/Family are encouraged to report perceived risks to care and to ask questions if they do not understand what they are told or what they should do.
--- NOTE | 2022-08-17 16:27 | PM.IMHP ---
H&P: HPI History of Present Illness Date/Time: 08/17/22 16:27 Chief Complaint: Fall Narrative: This is a 62-year-old female patient to does have a history of ventriculomegaly and normal pressure hydrocephalus. She is followed by the neurologist for this condition. The patient came in for evaluation of a head injury earlier today. The patient stated that she was using her walker to get out of bed when she felt dizzy and the room was spinning around because her to fall and hit her head against the ground. The patient has taken meclizine in the past for this. The patient was not able to get up off the floor today by herself. She required assistance from EMS. The patient stated she has been very dizzy for the past week. Patient was given IV fluids and meclizine and she stated she felt somewhat better. The patient was here 2 days ago and felt better and went home but today she came back. Head and neck CTA was read as following. 1.49% stenosis of the proximal right internal carotid artery relative to normal distal artery lumen diameter (NASCET criteria). 2. Less than 10% stenosis of the proximal left internal carotid artery relative to normal distal artery lumen diameter. 3: No significant abnormality of the intracranial arteries. Head CT was read as the following 1. Stable ventriculomegaly. Correlate clinically for normal pressure hydrocephalus (NPH: clinical triad ataxia/gait disturbance, dementia, urinary incontinence). No other acute intracranial process. It took 2 of us to get her to the bathroom which she ambulated approximately 5 ft in that was very difficult. She was COVID negative today she was given normal saline in Antivert in the emergency room The patient is being admitted to observation status on the date of service of 08/17/2022. Review of Systems Review of Systems: See HPI All systems reviewed & are unremarkable except as noted in HPI and below Constitutional: Constitutional: Reports as per HPI and Reports no additional constitutional complaints Eyes: Eyes: Reports as per HPI and Reports no additional eye complaints ENT: Reports system reviewed and no additional complaints, except as documented and Reports Normal hearing present Cardiovascular: Cardiovascular: Reports no additional cardiovascular complaints Respiratory: Respiratory: Reports no additional respiratory complaints and Reports no additional respiratory complaints Gastrointestinal: Gastrointestinal: Reports as per HPI and Reports no additional gastrointestinal complaints Musculoskeletal: Musculoskeletal: Reports no additional musculoskeletal complaints Integumentary/Breasts: Skin/Breast: Reports system reviewed and no additional complaints, except as docu and Reports as per HPI Neurologic: Reports system reviewed and no additional complaints, except as documented, Reports as per HPI and Reports Normal hearing present Psychiatric: Psychiatric: Reports no additional psychiatric complaints and Reports as per HPI Endocrine: Endocrine: Reports no additional endocrine complaints Hematologic/Lymphatic: Hematologic/Lymphatic: Reports no additional hematologic/lymphatic complaints Allergic/Immunologic: Allergic/Immunologic: Reports no additional allergic/immunologic complaints [facility] Past Medical History Medical History (Updated 08/17/22 @ 16:41 by Patricia Newsome NP) Anxiety and depression B12 deficiency Bipolar disorder Cerebral ventriculomegaly Since 1986 Chronic GERD Diastolic dysfunction Echocardiogram 09/2020: Grade 1 diastolic dysfunction EF 74%, mild concentric left ventricular hypertrophy, mild pulmonary hypertension with RVSP of 38, mild aortic valve stenosis, mild mitral valve prolapse Essential (primary) hypertension Hyperlipidemia Major depressive disorder Obesity Osteoarthritis of knees, bilateral Other and unspecified hyperlipidemia Parkinson's disease Schizoaffective disorder The patient is unsure if she has schizophrenia versus schiz
[2022-08-17] MEDS: SODIUM CHLORIDE 0.9% IV 1,000 ML 75 ML IV CONT (17:23)
[2022-08-17] MEDS: PANTOPRAZOLE 40 MG TABLET PO (17:27)
[2022-08-17 18:37] LABS: Lithium 0.9 mmol/L (0.6-1.2)
[2022-08-17] MEDS: IRBESARTAN 150 MG TABLET 300 MG PO (21:53)
[2022-08-17] MEDS: clonazePAM (*CRX) 0.5 MG TABLET 1 MG PO (21:53)
[2022-08-17] MEDS: ATORVASTATIN 40 MG TABLET PO (21:53)
[2022-08-17] MEDS: MONTELUKAST SODIUM 10 MG TABLET PO (21:54)
[2022-08-17] MEDS: MIRTAZAPINE 30 MG TABLET PO (21:54)
[2022-08-17] MEDS: LITHIUM CARBONATE 150 MG CAPSULE 600 MG PO (21:54)
[2022-08-17] MEDS: METOPROLOL SUCCINATE EXT REL 50 MG TABCR PO (21:55)
[2022-08-17] MEDS: MELOXICAM 7.5 MG TABLET 15 MG PO (21:55)
[2022-08-17] MEDS: traZODone HCL 50 MG TABLET PO (21:55)
[2022-08-17] MEDS: lamoTRIgine 100 MG TABLET 200 MG PO (21:57)
[2022-08-18] VITALS (8 sets, daily range): BP systolic 133–153; BP diastolic 54–74; PULSE 56–64; RESP 16; TEMP 36.1–37; O2SAT 96–100
--- NOTE | 2022-08-18 | ECHO_ITS ---
Patient Info Name: Jess Chávez Age: 62 years : 1960 Gender: Female Ht: 65 in Wt: 245 lbs BSA: 2.31 m2 HR: 58 bpm BP: 133 / 54 mmHg Heart Rhythm: Sinus Rhythm Technical Quality: Fair Exam Date: 08/18/2022 1:08 PM Exam Location: [facility] Patient Status: Outpatient Admit Date: 08/17/2022 Staff Ordering Physician: Patricia Newsome NP Business Systems Developer: Juanita Srivastava RDCS Attending Provider: Wood Narvaez MD Referring Physician: Jerod MENDIETA; Exam Type: CA echo doppler color flow Study Info Indications R42 - Dizziness and giddiness Complete two-dimensional, color flow and Doppler transthoracic echocardiogram is performed. Summary 1. Complete two-dimensional, color flow and Doppler transthoracic echocardiogram is performed. 2. Left ventricular chamber dimension is normal. 3. Left ventricular systolic function is normal, estimated at 65-70%. 4. There is mildly increased left ventricular wall thickness. 5. The left ventricular diastolic function is normal. 6. There is mild aortic valve stenosis with a peak velocity of 159 cm/s, mean gradient of 5 mmHg, and aortic valve area of 1.8 cm2. 7. There is mild mitral valve regurgitation. 8. There is mild tricuspid valve regurgitation. 9. Mild pulmonary hypertension, estimated pulmonary arterial systolic pressure is 38 mmHg. Left Ventricle Left ventricular chamber dimension is normal. Left ventricular systolic function is normal, estimated at 65-70%. There is mildly increased left ventricular wall thickness. The left ventricular diastolic function is normal. Right Ventricle Right ventricular chamber dimension is normal. Right ventricular systolic function is normal. Left Atria Left atrial chamber dimension is normal. Right Atria Right atrial chamber dimension is normal. Aortic Valve The aortic valve is trileaflet. There is mild aortic valve stenosis with a peak velocity of 159 cm/s, mean gradient of 5 mmHg, and aortic valve area of 1.8 cm2. There is no aortic valve regurgitation. Pulmonic Valve The pulmonic valve is not well visualized. There is trace pulmonic regurgitation. Mitral Valve The mitral valve has normal leaflets. There is mild mitral valve regurgitation. The mitral valve annulus is mildly calcified. Tricuspid Valve The tricuspid valve leaflets are normal. There is mild tricuspid valve regurgitation. Mild pulmonary hypertension, estimated pulmonary arterial systolic pressure is 38 mmHg. Pericardium/Pleural The pericardium appears normal. There is no pericardial effusion. Inferior Vena Cava Normal inferior vena cava with >50% collapse upon inspiration consistent with normal right atrial pressure, 5 mmHg. Aorta The aortic root size at the sinus of Valsalva is normal. There is mild aortic atherosclerosis. Left Ventricular Outflow Tract Name Value Normal LVOT 2D LVOT Diameter 1.9 cm LVOT Doppler LVOT Peak Gradient 5 mmHg LVOT Mean Gradient 2 mmHg LVOT VTI 25 cm LVOT VTI/AV VTI Ratio
[2022-08-18] MEDS: SODIUM CHLORIDE 0.9% IV 1,000 ML 75 ML IV CONT (06:01)
[2022-08-18 06:55] LABS: Basophils Percent Auto 0.6 % (0.2-1.2); Eosinophils Absolute Auto 0.3 K/mm3 (0-0.3); Eosinophils Percent Auto 3.9 % (0-4.4); Hematocrit 34.8 % (37.0-47.0); Hemoglobin 11.2 g/dL (12.0-15.0); Immature Granulocyte Absolute 0.02 K/mm3 (0.00-0.031); Immature Granulocyte Percent A 0.3 % (0-0.5); Lymphocytes Absolute Auto 1.87 K/mm3 (0.9-3.2); Lymphocytes Percent Auto 27.8 % (18.3-44.2); Mean Corpuscular HGB Conc 32.2 g/dl (32-36); Mean Corpuscular Hemoglobin 29.9 pg (26-34); Mean Corpuscular Volume 92.8 fl (80-100); Mean Platelet Volume 9.5 fl (7.4-10.4); Monocytes Absolute Auto 0.5 K/mm3 (0.1-0.6); Neutrophils Absolute Auto 4.1 K/mm3 (1.3-6.7); Neutrophils Percent Auto 60.4 % (45.5-73.1); Platelet Count Result 276 k/mm3 (150-375); Red Blood Count 3.75 M/mm3 (4.2-5.4); Red Cell Distribution Width 14.8 % (11.5-14.5); White Blood Count 6.7 K/mm3 (4.5-10.0)
[2022-08-18 07:06] LABS: Alanine Aminotransferase 19 U/L (6-35); Albumin Level 4.1 g/dL (3.5-5.1); Alkaline Phosphatase 101 U/L (38-126); Anion Gap 6 mmol/L (8-16); Aspartate Amino Transferase 22 U/L (14-36); Bilirubin,Total 0.5 mg/dL (0.2-1.3); Blood Urea Nitrogen 10 mg/dL (7-17); Calcium 9.6 mg/dL (8.4-10.2); Carbon Dioxide 25 mmol/L (22-30); Chloride 108 mmol/L (98-107); Creatine Kinase 67 U/L (30-135); Estimated CRCL calculation 72 ml/min; Estimated Glomerular Filt Rate > 60; Glucose 97 mg/dL (65-110); Magnesium 2.2 mg/dL (1.6-2.3); Potassium 3.7 mmol/L (3.4-5.0); Sodium 139 mmol/L (137-145)
[2022-08-18] MEDS: MECLIZINE HCL 25 MG TABLET PO ×3 (10:05→18:00)
[2022-08-18] MEDS: lamoTRIgine 100 MG TABLET PO (10:05)
[2022-08-18] MEDS: PANTOPRAZOLE 40 MG TABLET PO ×2 (10:06→18:01)
[2022-08-18] MEDS: clonazePAM (*CRX) 0.5 MG TABLET PO (10:07)
--- NOTE | 2022-08-18 12:12 | WPDNEURCNPN ---
Assessment and Plan Assessment and plan (1) Disequilibrium: Code(s): R42 - Dizziness and giddiness Status: Acute (2) Parkinson's disease: Code(s): G20 - Parkinson's disease Status: Acute (3) Cerebral ventriculomegaly: Code(s): G93.89 - Other specified disorders of brain Status: Chronic Assessment and Plan: Ms. Chávez is a 62 year old female with a history of ventriculomegaly, Parkinson's disease, and bipolar disorder who presented due to dizziness resulting in falls. Lightheadedness and gait instability can be seen in the setting of Parkinson's disease, especially in the setting of carotid disease; however patient clearly describes sensation of room spinning, indicating vertigo. MRI does not show any obvious neurological cause for her symptoms. She has hearing loss, tinnitus and dizziness -- possible Meniere's vs labyrinthitis? She has been bradycardic and mildly hypotensive during the admission, unclear if this is related. - No further work-up needed from a neurological standpoint - Follow-up with outpatient Neurologist Consult date: 08/18/22 Time Seen: 12:13 Reason for consult: Dizziness HPI: Jess Chávez is a 62 year old female with a history of ventriculomegaly, Parkinson's disease, Bipolar disorder who preseted yesterday after feeling dizzy, resulting in a fall. Per patient she has had dizziness since last October. She had presented to the ED with dizziness a few days ago and was given meclizine and discharged. Yesterday she felt dizzy, fell, and hit her head on the ground. She did not have any loss of consciousness. She denies any lightheadedness or blurry vision with these episodes. No chest pain, palpitations, SOB. She had a CT head when she came to the ED which was negative. CTA showed 49% stenosis of proximal R ICA and 10% stenosis of L ICA. MRI was negative for acute stroke. EKG showed sinus bradycardia. HR was as low as 49 yesterday. BP has been fairly stable, but did drop to 99/65 sometime yesterday. Patient follows with a Neurologist for her Parkinson's at [facility]. She has previously seen ENT for her dizziness but was told there was no ear related cause for her symptoms. Review of Systems Constitutional: Constitutional: Reports fatigue Eyes: Eyes: Reports no additional eye complaints ENT: Reports tinnitus Comments: hearing loss Cardiovascular: Cardiovascular: Reports no additional cardiovascular complaints Respiratory: Respiratory: Reports no additional respiratory complaints Gastrointestinal: Gastrointestinal: Reports no additional gastrointestinal complaints Genitourinary: Genitourinary: Reports no additional female genitourinary complaints Musculoskeletal: Musculoskeletal: Reports arthralgias Integumentary/Breasts: Skin/Breast: Reports system reviewed and no additional complaints, except as docu Neurologic: Reports as per HPI and Reports vertigo Psychiatric: Psychiatric: Reports anxiety and Reports depression [facility] Past Medical History Medical History Anxiety and depression B12 deficiency Bipolar disorder Cerebral ventriculomegaly Since 1986 Chronic GERD Diastolic dysfunction Echocardiogram 09/2020: Grade 1 diastolic dysfunction EF 74%, mild concentric left ventricular hypertrophy, mild pulmonary hypertension with RVSP of 38, mild aortic valve stenosis, mild mitral valve prolapse Essential (primary) hypertension Hyperlipidemia Major depressive disorder Obesity Osteoarthritis of knees, bilateral Other and unspecified hyperlipidemia Parkinson's disease Schizoaffective disorder The patient is unsure if she has schizophrenia versus schizoaffective disorder Syncope and collapse Surgical History Surgical History History of ear surgery History of loop recorder History of mastoidectomy (~1993) Right Hx of foot surgery Left foot w/ [place] p
--- NOTE | 2022-08-18 13:21 | PCPTNOTE ---
Attempted PT evaluation, Pt getting an echo at this time. Will Follow.
--- NOTE | 2022-08-18 14:55 | PM.IMPN ---
Progress Note: A&P Assessment and Plan (1) Fall: Code(s): W19.XXXA - Unspecified fall, initial encounter Status: Acute Assessment and Plan: Patient slid off her bed onto the ground. Denies precipitating symptoms. Was down for about [address] with no acute findings CK within normal limits Implement fall precautions Appreciate PT/OT eval (2) Dizziness: Code(s): R42 - Dizziness and giddiness Status: Acute Assessment and Plan: Patient states dizziness has been persistent for 1 year. Notes no significant change and does not believe contributed to fall. Head CT with no acute findings CTA with 49% stenosis of the proximal right internal carotid artery and <10% stenosis of left internal carotid artery Brain MRI shows stable ventriculomegaly with no acute findings Appreciate neurology consultation Does report history of orthostasis which could contribute to dizziness. Monitor orthostatic blood pressures each shift Meclizine as needed (3) Parkinson's disease: Code(s): G20 - Parkinson's disease Status: Acute Assessment and Plan: Established with Neurology Patient reports taking Sinemet for Parkinson's switch is not listed on her medication list. Will obtain further information from patient pharmacy and resume once medication is confirmed (4) Cerebral ventriculomegaly: Code(s): G93.89 - Other specified disorders of brain Status: Chronic Assessment and Plan: Pt with history of NPH, established with neurology Imaging reveals stable ventriculomegaly No need for further evaluation (5) Bipolar disorder: Code(s): F31.9 - Bipolar disorder, unspecified Status: Chronic Assessment and Plan: No acute issues. Continue lithium and lamotrigine (6) Essential (primary) hypertension: Code(s): I10 - Essential (primary) hypertension Status: Chronic Assessment and Plan: Blood pressure has been stable. Last BP 144/59 Continue irbesartan and metoprolol Monitor BP trends Subjective Date/time seen: 08/18/22 14:55 Interval history: Date of service: 08/18/2022 Jess Chávez is a 62-year-old female with a history of hypertension, hyperlipidemia, diastolic dysfunction, NPH, schizoaffective disorder, Parkinson's disease, depression, anxiety who is seen in follow-up for dizziness and falls. The patient states yesterday she became very weak and slid off her bed onto the floor. She does believe she hit her head. She states she was on the ground for about 2 hours prior to calling help. She did not have any precipitating symptoms including dizziness or lightheadedness. Today she complains of trouble with word finding and difficulty focusing. She denies confusion no headache. No visual changes, no dysphagia. She feels weak all over. She was able to walk to the bathroom with assistance today but seemed to have difficulty doing this. On her next trip to the bathroom she use the bedside. She denies shortness breath, cough, chest pain abdominal pain, nausea, vomiting, fever, or chills. Review of Systems Review of Systems: All systems reviewed & are unremarkable except as noted in HPI and below Exam Narrative: General: Well-nourished, well-appearing 62-year-old female, sitting up in bed, comfortable, NARD Neuro: awake, alert and oriented x4, speech clear, no focal neuro deficits noted HEENMT: normocephalic, atraumatic, EOMI, sclerae anicteric, moist oral mucosa Respiratory: clear to auscultation bilaterally, nonlabored breathing Cardio: regular rate, regular rhythm with S1-S2 Abdomen: nondistended, normoactive bowel sounds, soft, nontender to palpation Extremities: 1+ edema of bilateral lower extremities, no erythema, or tenderness to palpation, DP pulses 2+ bilaterally Skin: no rashes or lesions, warm and dry Psych: appropriate mood and affect, judgment and insight intact Objective Da
[2022-08-18] MEDS: CARBIDOPA/LEVODOPA 12.5/50 MG TABLET 1 TABLET PO (18:00)
[2022-08-18] MEDS: CARBIDOPA/LEVODOPA 25/100 MG TABLET 1 TABLET PO (18:00)
[2022-08-18] MEDS: LITHIUM CARBONATE 150 MG CAPSULE 600 MG PO (21:50)
[2022-08-18] MEDS: lamoTRIgine 100 MG TABLET 200 MG PO (21:51)
[2022-08-18] MEDS: MONTELUKAST SODIUM 10 MG TABLET PO (21:52)
[2022-08-18] MEDS: ATORVASTATIN 40 MG TABLET PO (21:52)
[2022-08-18] MEDS: IRBESARTAN 150 MG TABLET 300 MG PO (21:52)
[2022-08-18] MEDS: METOPROLOL SUCCINATE EXT REL 50 MG TABCR PO (21:53)
[2022-08-18] MEDS: MIRTAZAPINE 30 MG TABLET PO (21:53)
[2022-08-18] MEDS: traZODone HCL 50 MG TABLET PO (21:54)
[2022-08-18] MEDS: MELOXICAM 7.5 MG TABLET 15 MG PO (21:55)
[2022-08-18] MEDS: clonazePAM (*CRX) 0.5 MG TABLET 1 MG PO (21:57)
[2022-08-19] MEDS: SODIUM CHLORIDE 0.9% IV 1,000 ML 75 ML IV CONT (05:28)
[2022-08-19 06:00] VITALS: BP 131/63; PULSE 56; RESP 18; TEMP 36.7; O2SAT 95
[2022-08-19 06:57] LABS: Hematocrit 34.3 % (37.0-47.0); Hemoglobin 10.8 g/dL (12.0-15.0); Mean Corpuscular HGB Conc 31.5 g/dl (32-36); Mean Corpuscular Hemoglobin 30.3 pg (26-34); Mean Corpuscular Volume 96.1 fl (80-100); Mean Platelet Volume 9.4 fl (7.4-10.4); Platelet Count Result 254 k/mm3 (150-375); Red Blood Count 3.57 M/mm3 (4.2-5.4); Red Cell Distribution Width 14.8 % (11.5-14.5); White Blood Count 7.2 K/mm3 (4.5-10.0)
[2022-08-19 07:14] LABS: Alanine Aminotransferase 11 U/L (6-35); Albumin Level 3.9 g/dL (3.5-5.1); Alkaline Phosphatase 88 U/L (38-126); Anion Gap 9 mmol/L (8-16); Aspartate Amino Transferase 17 U/L (14-36); Bilirubin,Total 0.5 mg/dL (0.2-1.3); Blood Urea Nitrogen 10 mg/dL (7-17); Calcium 9.4 mg/dL (8.4-10.2); Carbon Dioxide 24 mmol/L (22-30); Chloride 108 mmol/L (98-107); Estimated CRCL calculation 72 ml/min; Estimated Glomerular Filt Rate > 60; Glucose 97 mg/dL (65-110); Potassium 3.9 mmol/L (3.4-5.0); Sodium 141 mmol/L (137-145)
[2022-08-19 08:00] VITALS: PULSE 56; RESP 18; O2SAT 95
[2022-08-19] MEDS: CARBIDOPA/LEVODOPA 12.5/50 MG TABLET 1 TABLET PO ×3 (09:55→17:41)
[2022-08-19] MEDS: lamoTRIgine 100 MG TABLET PO (09:55)
[2022-08-19] MEDS: PANTOPRAZOLE 40 MG TABLET PO ×2 (09:55→17:41)
[2022-08-19] MEDS: CARBIDOPA/LEVODOPA 25/100 MG TABLET 1 TABLET PO ×3 (09:56→17:41)
[2022-08-19] MEDS: MECLIZINE HCL 25 MG TABLET PO ×4 (09:56→20:52)
[2022-08-19] MEDS: clonazePAM (*CRX) 0.5 MG TABLET PO (09:58)
--- NOTE | 2022-08-19 12:59 | PM.IMPN ---
Progress Note: A&P Assessment and Plan (1) Fall: Code(s): W19.XXXA - Unspecified fall, initial encounter Status: Acute Assessment and Plan: Patient slid off her bed onto the ground. Denies precipitating symptoms. Was down for about [address] with no acute findings CK within normal limits Implement fall precautions Appreciate PT/OT eval Patient endorses feeling weakwhich is contributing to falls. She will benefit from short rehab course at SNF for <30 days to allow for strengthening and decrease fall risk. (2) Dizziness: Code(s): R42 - Dizziness and giddiness Status: Acute Assessment and Plan: Patient states dizziness has been persistent for 1 year. Notes no significant change and does not believe contributed to fall. Head CT with no acute findings CTA with 49% stenosis of the proximal right internal carotid artery and <10% stenosis of left internal carotid artery Brain MRI shows stable ventriculomegaly with no acute findings Appreciate neurology consultation Does report history of orthostasis which could contribute to dizziness. Orthostatic vital signs negative this admission Short course of meclizine for symptomatic improvement Will refer to outpatient vestibular therapy, hopefully following completion of SNF (3) Parkinson's disease: Code(s): G20 - Parkinson's disease Status: Acute Assessment and Plan: Established with Neurology Continue [facility] Outpatient neurology follow up (4) Cerebral ventriculomegaly: Code(s): G93.89 - Other specified disorders of brain Status: Chronic Assessment and Plan: Pt with history of NPH, established with neurology Imaging reveals stable ventriculomegaly No need for further evaluation (5) Bipolar disorder: Code(s): F31.9 - Bipolar disorder, unspecified Status: Chronic Assessment and Plan: No acute issues. Continue lithium and lamotrigine (6) Essential (primary) hypertension: Code(s): I10 - Essential (primary) hypertension Status: Chronic Assessment and Plan: Blood pressure has been stable. Last BP 131/63 Continue irbesartan and metoprolol Monitor BP trends Subjective Date/time seen: 08/19/22 12:59 Interval history: Date of service: 08/19/2022 Jess Chávez is a 62-year-old female with a history of hypertension, hyperlipidemia, diastolic dysfunction, NPH, schizoaffective disorder, Parkinson's disease, depression, anxiety who is seen in follow-up for dizziness and falls. She continues to complain of dizziness today. She states her dizziness is worse with head movements and standing. She has the sensation that she is spinning and the room is unstable. She reports some improvement with meclizine. Yesterday she noticed some trouble focusing while reading a text message on her phone. She has not had any further issues with this today and denies visual changes. Denies ear pain or hearing loss. No fever, chills, nausea, vomiting, abdominal pain. Appetite fair. Able to get up to bedside commode but having difficulty walking to the bathroom and needing assistance. No urinary symptoms. Review of Systems Review of Systems: All systems reviewed & are unremarkable except as noted in HPI and below Exam Narrative: General: Well-nourished, well-appearing 62-year-old female, sitting up in bed, comfortable, NARD Neuro: awake, alert and oriented x4, speech clear, no focal neuro deficits noted HEENMT: normocephalic, atraumatic, EOMI, sclerae anicteric, moist oral mucosa Respiratory: clear to auscultation bilaterally, nonlabored breathing Cardio: regular rate, regular rhythm with S1-S2 Abdomen: nondistended, normoactive bowel sounds, soft, nontender to palpation Extremities: trace edema of bilateral lower extremities, no erythema, or tenderness to palpation, DP pulses 2+ bilaterally Skin: no rashes or lesions, warm and dry Psych: a
[2022-08-19 14:00] VITALS: BP 130/65; PULSE 58; RESP 18; TEMP 36.6; O2SAT 97
[2022-08-19 20:47] VITALS: PULSE 70
[2022-08-19] MEDS: METOPROLOL SUCCINATE EXT REL 50 MG TABCR PO (20:47)
[2022-08-19] MEDS: lamoTRIgine 100 MG TABLET 200 MG PO (20:47)
[2022-08-19] MEDS: IRBESARTAN 150 MG TABLET 300 MG PO (20:48)
[2022-08-19] MEDS: MIRTAZAPINE 30 MG TABLET PO (20:48)
[2022-08-19] MEDS: LITHIUM CARBONATE 150 MG CAPSULE 600 MG PO (20:50)
[2022-08-19] MEDS: clonazePAM (*CRX) 0.5 MG TABLET 1 MG PO (20:50)
[2022-08-19] MEDS: MELOXICAM 7.5 MG TABLET 15 MG PO (20:51)
[2022-08-19] MEDS: MONTELUKAST SODIUM 10 MG TABLET PO (20:51)
[2022-08-19] MEDS: traZODone HCL 50 MG TABLET PO (20:52)
[2022-08-19] MEDS: ATORVASTATIN 40 MG TABLET PO (20:52)
[2022-08-19 22:00] VITALS: BP 150/71; PULSE 59; RESP 16; TEMP 36.3; O2SAT 98
[2022-08-20 05:16] VITALS: BP 115/62; PULSE 58; RESP 20; TEMP 36.9; O2SAT 98
[2022-08-20 06:36] LABS: Hematocrit 34.7 % (37.0-47.0); Hemoglobin 11.1 g/dL (12.0-15.0); Mean Corpuscular Hemoglobin 29.8 pg (26-34); Mean Corpuscular Volume 93.3 fl (80-100); Platelet Count Result 257 k/mm3 (150-375); Red Blood Count 3.72 M/mm3 (4.2-5.4); Red Cell Distribution Width 14.8 % (11.5-14.5); White Blood Count 7.6 K/mm3 (4.5-10.0)
[2022-08-20 06:40] LABS: Anion Gap 8 mmol/L (8-16); Blood Urea Nitrogen 11 mg/dL (7-17); Calcium 9.5 mg/dL (8.4-10.2); Carbon Dioxide 22 mmol/L (22-30); Chloride 109 mmol/L (98-107); Estimated CRCL calculation 80 ml/min; Estimated Glomerular Filt Rate > 60; Glucose 100 mg/dL (65-110); Potassium 3.6 mmol/L (3.4-5.0); Sodium 139 mmol/L (137-145)
[2022-08-20 08:00] VITALS: PULSE 58; RESP 20; O2SAT 98
[2022-08-20] MEDS: lamoTRIgine 100 MG TABLET PO (08:32)
[2022-08-20] MEDS: MECLIZINE HCL 25 MG TABLET PO ×4 (08:32→20:18)
[2022-08-20] MEDS: CARBIDOPA/LEVODOPA 12.5/50 MG TABLET 1 TABLET PO ×3 (08:32→17:22)
[2022-08-20] MEDS: CARBIDOPA/LEVODOPA 25/100 MG TABLET 1 TABLET PO ×3 (08:32→17:22)
[2022-08-20] MEDS: PANTOPRAZOLE 40 MG TABLET PO ×2 (08:33→17:22)
[2022-08-20] MEDS: clonazePAM (*CRX) 0.5 MG TABLET PO (08:40)
[2022-08-20] MEDS: FAMOTIDINE 20 MG TABLET PO ×2 (08:41→20:20)
--- NOTE | 2022-08-20 12:57 | PM.IMPN ---
Progress Note: A&P Assessment and Plan (1) Fall: Code(s): W19.XXXA - Unspecified fall, initial encounter Status: Acute Assessment and Plan: Patient slid off her bed onto the ground. Denies precipitating symptoms. Was down for about [address] with no acute findings CK within normal limits Fall precautions implemented Appreciate PT/OT eval Patient endorses weakness contributing to falls. She will benefit from short rehab course at SNF for <30 days to allow for strengthening and decrease fall risk. (2) Dizziness: Code(s): R42 - Dizziness and giddiness Status: Acute Assessment and Plan: Patient states dizziness has been persistent for 1 year. Notes no significant change and does not believe contributed to fall. Head CT with no acute findings CTA with 49% stenosis of the proximal right internal carotid artery and <10% stenosis of left internal carotid artery Brain MRI shows stable ventriculomegaly with no acute findings Appreciate neurology consultation Does report history of orthostasis which could contribute to dizziness. Orthostatic vital signs negative this admission Short course of meclizine for symptomatic improvement Will refer to outpatient vestibular therapy, hopefully following completion of SNF (3) Parkinson's disease: Code(s): G20 - Parkinson's disease Status: Acute Assessment and Plan: Established with Neurology Continue [facility] Outpatient neurology follow up (4) Cerebral ventriculomegaly: Code(s): G93.89 - Other specified disorders of brain Status: Chronic Assessment and Plan: Pt with history of NPH, established with neurology Imaging reveals stable ventriculomegaly No need for further evaluation (5) Bipolar disorder: Code(s): F31.9 - Bipolar disorder, unspecified Status: Chronic Assessment and Plan: No acute issues. Continue lithium and lamotrigine (6) Essential (primary) hypertension: Code(s): I10 - Essential (primary) hypertension Status: Chronic Assessment and Plan: Blood pressure has been stable. Last BP 115/62 Continue irbesartan and metoprolol Monitor BP trends Subjective Date/time seen: 08/20/22 12:57 Interval history: Date of service: 08/20/2022 Jess Chávez is a 62-year-old female with a history of hypertension, hyperlipidemia, diastolic dysfunction, NPH, schizoaffective disorder, Parkinson's disease, depression, anxiety who is seen in follow-up for dizziness and falls. She seems to be somewhat improved today she states she is ?not too dizzy.? She does still complain of dizziness which occurs if she turns her head. She complains of an upset stomach today. She was able to tolerate her breakfast. She denies nausea or vomiting. She complains of a mild occipital headache without any associated symptoms. She got up to the bedside commode today and did endorse feeling unsteady with doing so. She denies shortness of breath, chest pain, palpitations, fevers, chills. Review of Systems Review of Systems: All systems reviewed & are unremarkable except as noted in HPI and below Exam Narrative: General: Well-nourished, well-appearing 62-year-old female, sitting up in bed, comfortable, NARD Neuro: awake, alert and oriented x4, speech clear, no focal neuro deficits noted HEENMT: normocephalic, atraumatic, EOMI, sclerae anicteric, moist oral mucosa Respiratory: clear to auscultation bilaterally, nonlabored breathing Cardio: regular rate, regular rhythm with S1-S2 Abdomen: nondistended, normoactive bowel sounds, soft, nontender to palpation Extremities: trace edema of bilateral lower extremities, no erythema, or tenderness to palpation Skin: no rashes or lesions, warm and dry Psych: appropriate mood and affect, judgment and insight intact Objective Data Vital Signs Vital Signs: Vital Signs - 24 hr 08/19/22 14:00 08/19
[2022-08-20 14:00] VITALS: BP 135/69; PULSE 52; RESP 20; TEMP 35.8; O2SAT 98
[2022-08-20] MEDS: clonazePAM (*CRX) 0.5 MG TABLET 1 MG PO (20:17)
[2022-08-20 20:18] VITALS: PULSE 58
[2022-08-20] MEDS: METOPROLOL SUCCINATE EXT REL 50 MG TABCR PO (20:18)
[2022-08-20] MEDS: LITHIUM CARBONATE 150 MG CAPSULE 600 MG PO (20:18)
[2022-08-20] MEDS: traZODone HCL 50 MG TABLET PO (20:18)
[2022-08-20] MEDS: MONTELUKAST SODIUM 10 MG TABLET PO (20:18)
[2022-08-20] MEDS: MELOXICAM 7.5 MG TABLET 15 MG PO (20:18)
[2022-08-20] MEDS: MIRTAZAPINE 30 MG TABLET PO (20:18)
[2022-08-20] MEDS: IRBESARTAN 150 MG TABLET 300 MG PO (20:19)
[2022-08-20] MEDS: lamoTRIgine 100 MG TABLET 200 MG PO (20:20)
[2022-08-20] MEDS: ATORVASTATIN 40 MG TABLET PO (20:20)
[2022-08-20 20:25] VITALS: PULSE 58
[2022-08-20 21:39] VITALS: BP 140/60; PULSE 59; RESP 20; TEMP 36.8; O2SAT 97
[2022-08-21 05:16] VITALS: BP 147/71; PULSE 64; RESP 20; TEMP 36.4; O2SAT 99
[2022-08-21 07:47] LABS: Hematocrit 36.1 % (37.0-47.0); Hemoglobin 11.6 g/dL (12.0-15.0); Mean Corpuscular HGB Conc 32.1 g/dl (32-36); Mean Corpuscular Hemoglobin 30.2 pg (26-34); Mean Platelet Volume 9.6 fl (7.4-10.4); Platelet Count Result 277 k/mm3 (150-375); Red Blood Count 3.84 M/mm3 (4.2-5.4); Red Cell Distribution Width 14.6 % (11.5-14.5); White Blood Count 6.9 K/mm3 (4.5-10.0)
[2022-08-21 07:59] LABS: Anion Gap 12 mmol/L (8-16); Blood Urea Nitrogen 10 mg/dL (7-17); Calcium 9.8 mg/dL (8.4-10.2); Carbon Dioxide 26 mmol/L (22-30); Chloride 105 mmol/L (98-107); Estimated CRCL calculation 80 ml/min; Estimated Glomerular Filt Rate > 60; Glucose 94 mg/dL (65-110); Sodium 143 mmol/L (137-145)
[2022-08-21] MEDS: CARBIDOPA/LEVODOPA 12.5/50 MG TABLET 1 TABLET PO ×3 (09:27→17:56)
[2022-08-21] MEDS: CARBIDOPA/LEVODOPA 25/100 MG TABLET 1 TABLET PO ×3 (09:27→17:56)
[2022-08-21] MEDS: PANTOPRAZOLE 40 MG TABLET PO ×2 (09:27→17:56)
[2022-08-21] MEDS: FAMOTIDINE 20 MG TABLET PO ×2 (09:27→20:21)
[2022-08-21] MEDS: lamoTRIgine 100 MG TABLET PO (09:27)
[2022-08-21] MEDS: clonazePAM (*CRX) 0.5 MG TABLET PO (09:30)
[2022-08-21] MEDS: ACETAMINOPHEN 325 MG TABLET 650 MG PO (10:25)
[2022-08-21 14:00] VITALS: BP 151/75; PULSE 60; RESP 20; TEMP 36.1; O2SAT 97
[2022-08-21 14:20] VITALS: O2SAT 97
--- NOTE | 2022-08-21 15:39 | PM.IMPN ---
Progress Note: A&P Assessment and Plan (1) Fall: Code(s): W19.XXXA - Unspecified fall, initial encounter Status: Acute Assessment and Plan: Patient slid off her bed onto the ground. Denies precipitating symptoms. Was down for about [address] with no acute findings CK within normal limits Fall precautions implemented Appreciate PT/OT eval Patient endorses weakness contributing to falls. She will benefit from short rehab course at SNF for <30 days to allow for strengthening and decrease fall risk. Awaiting placement. (2) Dizziness: Code(s): R42 - Dizziness and giddiness Status: Acute Assessment and Plan: Patient states dizziness has been persistent for 1 year. Notes no significant change and does not believe contributed to fall. Head CT with no acute findings CTA with 49% stenosis of the proximal right internal carotid artery and <10% stenosis of left internal carotid artery Brain MRI shows stable ventriculomegaly with no acute findings Appreciate neurology consultation Does report history of orthostasis which could contribute to dizziness. Orthostatic vital signs negative this admission Short course of meclizine for symptomatic improvement Will refer to outpatient vestibular therapy, hopefully following completion of SNF (3) Parkinson's disease: Code(s): G20 - Parkinson's disease Status: Acute Assessment and Plan: Established with Neurology Continue [facility] Outpatient neurology follow up (4) Cerebral ventriculomegaly: Code(s): G93.89 - Other specified disorders of brain Status: Chronic Assessment and Plan: Pt with history of NPH, established with neurology Imaging reveals stable ventriculomegaly No need for further evaluation (5) Bipolar disorder: Code(s): F31.9 - Bipolar disorder, unspecified Status: Chronic Assessment and Plan: No acute issues. Continue lithium and lamotrigine (6) Essential (primary) hypertension: Code(s): I10 - Essential (primary) hypertension Status: Chronic Assessment and Plan: Blood pressure has been stable. Last BP 151/75 Continue irbesartan and metoprolol Monitor BP trends Subjective Date/time seen: 08/21/22 15:39 Interval history: Date of service: 08/20/2022 Jess Chávez is a 62-year-old female with a history of hypertension, hyperlipidemia, diastolic dysfunction, NPH, schizoaffective disorder, Parkinson's disease, depression, anxiety who is seen in follow-up for dizziness and falls. Patient reports that she is feeling well. She does endorse some dizziness and weakness. She had an episode of emesis yesterday but none today. She denies nausea and is tolerating her diet. She does complain of a dull aching headache in her right temporal region. She denies shortness of breath, cough, or chest pain. Today she complains of double vision only when she is looking at her phone screen. Review of Systems Review of Systems: All systems reviewed & are unremarkable except as noted in HPI and below Exam Narrative: General: Well-nourished, well-appearing 62-year-old female, sitting up in bed, comfortable, NARD Neuro: awake, alert and oriented x4, speech clear, no focal neuro deficits noted HEENMT: normocephalic, atraumatic, EOMI, sclerae anicteric, moist oral mucosa Respiratory: clear to auscultation bilaterally, nonlabored breathing Cardio: regular rate, regular rhythm with S1-S2 Abdomen: nondistended, normoactive bowel sounds, soft, nontender to palpation Extremities: trace edema of bilateral lower extremities, no erythema, or tenderness to palpation Skin: no rashes or lesions, warm and dry Psych: appropriate mood and affect, judgment and insight intact Objective Data Vital Signs Vital Signs: Vital Signs - 24 hr 08/20/22 20:18 08/20/22 20:25 08/20/22 21:39 Temperature 98.2 F Pulse Rate 58 L 58 L 59 L Resp
[2022-08-21] MEDS: ONDANSETRON INJ 4 MG/2 ML VIAL IV PUSH (20:15)
[2022-08-21] MEDS: IRBESARTAN 150 MG TABLET 300 MG PO (20:19)
[2022-08-21] MEDS: clonazePAM (*CRX) 0.5 MG TABLET 1 MG PO (20:19)
[2022-08-21] MEDS: ATORVASTATIN 40 MG TABLET PO (20:19)
[2022-08-21] MEDS: lamoTRIgine 100 MG TABLET 200 MG PO (20:20)
[2022-08-21] MEDS: MIRTAZAPINE 30 MG TABLET PO (20:21)
[2022-08-21] MEDS: traZODone HCL 50 MG TABLET PO (20:21)
[2022-08-21] MEDS: LITHIUM CARBONATE 150 MG CAPSULE 600 MG PO (20:21)
[2022-08-21] MEDS: MELOXICAM 7.5 MG TABLET 15 MG PO (20:21)
[2022-08-21 20:22] VITALS: PULSE 63
[2022-08-21] MEDS: METOPROLOL SUCCINATE EXT REL 50 MG TABCR PO (20:22)
[2022-08-21] MEDS: MONTELUKAST SODIUM 10 MG TABLET PO (20:22)
[2022-08-21 20:43] VITALS: O2SAT 97
[2022-08-21 21:49] VITALS: BP 133/69; PULSE 63; RESP 20; TEMP 36.6; O2SAT 96
--- NOTE | 2022-08-22 00:49 | PC.NURSE ---
Pt was up in chair at the start of shift. Pt was able to stand and pivot to bed. Pt has no complaints of pain and verbalizes no needs at this time. Pt participated and contributed to plan of care for the shift. Will continue to monitor pt.
[2022-08-22 05:37] VITALS: BP 133/60; PULSE 57; RESP 20; TEMP 36.7; O2SAT 98
[2022-08-22] MEDS: CARBIDOPA/LEVODOPA 12.5/50 MG TABLET 1 TABLET PO (08:36)
[2022-08-22] MEDS: PANTOPRAZOLE 40 MG TABLET PO (08:36)
[2022-08-22] MEDS: CARBIDOPA/LEVODOPA 25/100 MG TABLET 1 TABLET PO (08:37)
[2022-08-22] MEDS: FAMOTIDINE 20 MG TABLET PO (08:37)
[2022-08-22] MEDS: lamoTRIgine 100 MG TABLET PO (08:37)
[2022-08-22] MEDS: clonazePAM (*CRX) 0.5 MG TABLET PO (08:37)
[2022-08-22] MEDS: LIDOCAINE 5% PATCH 2 PATCH TOPICAL (10:13)
[2022-08-22] MEDS: ACETAMINOPHEN 325 MG TABLET 650 MG PO (10:17)
--- NOTE | 2022-08-22 11:24 | PM.DS ---
DS: Admitting Diagnosis Discharge Date 08/22/2022 Admitting Diagnosis dizziness DS: Discharge Diagnosis Discharge Diagnosis (1) Fall: Code(s): W19.XXXA - Unspecified fall, initial encounter Status: Acute Assessment and Plan: Patient slid off her bed onto the ground. Denied precipitating symptoms. Was down for about 2 hours prior to calling for help. Head CT showed no acute findings. CK was within normal limits. Patient does endorse weakness contributing to falls. Because of this, she was discharged to SNF for rehab to allow for strengthening and decrease fall risk. She was educated on fall precautions. (2) Dizziness: Code(s): R42 - Dizziness and giddiness Status: Acute Assessment and Plan: Patient states dizziness has been persistent for 1 year. Notes no significant change and does not believe contributed to fall. Head CT showed no acute etiology. CTA with 49% stenosis of the proximal right internal carotid artery and <10% stenosis of left internal carotid artery. Brain MRI showed stable ventriculomegaly with no acute findings. She was seen in consultation by Neurology. For course of meclizine was provided for symptomatic improvement. Patient does report a history orthostasis which may be contributing to the dizziness, however orthostatic vital signs were negative during this admission. Referral provided to outpatient vestibular therapy which can be initiated after completion of therapy at SNF. (3) Parkinson's disease: Code(s): G20 - Parkinson's disease Status: Acute Assessment and Plan: Established with Neurology. Continue [facility] and regularly scheduled outpatient neurology follow-up (4) Cerebral ventriculomegaly: Code(s): G93.89 - Other specified disorders of brain Status: Chronic Assessment and Plan: Pt with history of NPH, established with neurology. Imaging revealed stable ventriculomegaly. No need for further evaluation (5) Bipolar disorder: Code(s): F31.9 - Bipolar disorder, unspecified Status: Chronic Assessment and Plan: No acute issues. Continue lithium and lamotrigine (6) Essential (primary) hypertension: Code(s): I10 - Essential (primary) hypertension Status: Chronic Assessment and Plan: Blood pressures were stable during admission. Continue irbesartan and metoprolol DS: Summary Hospital Course Hospital Course: Date of admission: 08/17/2022 Date of discharge: 08/22/2022 Jess Chávez is a 62-year-old female with a history of hypertension, hyperlipidemia, diastolic dysfunction, NPH, schizoaffective disorder, Parkinson's disease, depression, anxiety who presented to the emergency department on 08/17/22 after suffering a fall at home in which she slid off her bed. On presentation to the ED, her vital signs were stable, laboratory workup was unremarkable, head CT showed stable ventriculomegaly with no acute findings. She was admitted to the hospitalist service for further evaluation and management and was seen in consultation by Neurology. Please see above for further details. She participated in PT/OT during admission and will continue therapy at SNF. She was provided a referral to outpatient vestibular rehab due to chronic dizziness. Patient was back to her usual state of health and was determined to no longer require inpatient care. We discussed worrisome signs and symptoms for which to return and she was educated on her medications. She was discharged in hemodynamically stable condition on 08/22/2022. Time Spent with Patient Time attestation: Total time spent providing and/or coordinating discharge services: 45 minutes Time spent: Greater than 30 minutes Exam Narrative: General: Well-nourished, well-appearing 62-year-old female, sitting up in bed, comfortable, NARD Neuro: awake, alert and oriented x4, speech clear, no focal neuro deficits noted KJENMT: onesimo
[2022-08-22 12:39] LABS: EDCOVIDSCREEN Negative (Negative)
== END 2022-08-22 14:10 ==
LOC: ANHED 08:54 → ANH3MEDSUR 12:02
PROVIDERS: Nurse Practitioner; Physician Assistant; Admitting Provider Family Medicine; Emergency Provider Emergency Medicine; PCP Family Medicine; Visit Provider Family Medicine
DX: S09.90XA Unspecified injury of head, initial encounter (principal); W19.XXXA Unspecified fall, initial encounter; G93.89 Other specified disorders of brain; G91.2 (Idiopathic) normal pressure hydrocephalus; H55.09 Other forms of nystagmus; R42 Dizziness and giddiness; F41.9 Anxiety disorder, unspecified; F31.9 Bipolar disorder, unspecified; E78.5 Hyperlipidemia, unspecified; E53.8 Deficiency of other specified B group vitamins; K21.9 Gastro-esophageal reflux disease without esophagitis; I08.3 Combined rheumatic disorders of mitral, aortic and tricuspid valves; I27.20 Pulmonary hypertension, unspecified; Z20.822 Contact with and (suspected) exposure to COVID-19; F25.9 Schizoaffective disorder, unspecified; G20 Parkinson's disease; I10 Essential (primary) hypertension; E66.9 Obesity, unspecified; Z68.41 Body mass index [BMI] 40.0-44.9, adult; R26.89 Other abnormalities of gait and mobility; R00.1 Bradycardia, unspecified; Z79.899 Other long term (current) drug therapy; Z79.891 Long term (current) use of opiate analgesic; Z82.49 Family history of ischemic heart disease and other diseases of the circulatory system; Z84.89 Family history of other specified conditions
CPT/HCPCS: 36415; 70450; 70496; 70498; 70553; 80048; 80053; 80178; 82550; 83735; 84443; 85025; 85027; 87426; 93005; 93306; 93880; 93970; 96360; 96361; 96374; 97110; 97116; 97161; 97165; 97535; 99285; A9270; A9577; C9803; G0378; J2405; J7030; Q9967; U0003; U0005

== ENCOUNTER 2022-11-15 12:17 | Outpatient (CLI) | payer OTHER, SELFPAY ==
--- NOTE | ~2022-11-15 | XR_ITS ---
Left Knee Technique: AP and lateral views were obtained. Clinical History: Pain Findings: No fracture or dislocation is seen. Bipartite patella noted. There is moderate tricompartme ntal osteophytic spurring. Joint spaces are relatively well-preserved. Soft tissues are unremarkable. No joint effusion is seen. Impression: Moderate tricompartmental osteoarthritis, as detailed above. Reviewed, dictated and finalized at location M. UCT DELIVERY SPECIALIST Impression: Moderate tricompartmental osteoarthritis, as detailed above.
--- NOTE | ~2022-11-15 | XR_ITS ---
Right Knee Technique: AP and lateral views were obtained. Clinical History: Pain Findings: No fracture or dislocation is seen. Moderate degenerative change of the patellofemoral comp artment present. There is mild degenerative change of the medial and lateral compartments. Soft tissu es are unremarkable. No joint effusion is seen. Impression: Moderate degenerative change of the patellofemoral compartment. Mild degenerative change of the medial and lateral compartments. Reviewed, dictated and finalized at location M. R CUTTER MACHINE Impression: Moderate degenerative change of the patellofemoral compartment. Mild degenerative change of the medial and lateral compartments.
== END 2022-11-15 12:18 | disposition home or self-care (01) ==
PROVIDERS: PCP Family Medicine; Visit Provider Family Medicine
DX: M17.0 Bilateral primary osteoarthritis of knee (principal)
CPT/HCPCS: 73560

== ENCOUNTER 2023-05-23 14:40 | Outpatient (CLI) | payer OTHER, SELFPAY ==
--- NOTE | ~2023-05-23 | MM_ITS ---
EXAMINATION: MM screening jennifer BI w maria isabel HISTORY: Screening mammogram TECHNIQUE: Craniocaudal and mediolateral oblique 3-D tomosynthesis images were obtained and synthetic 2-D images were generated. CAD analysis was submitted and interpreted. COMPARISON: 04/13/2022, 02/20/2020, 01/22/2019 bilateral screening mammogram examinations BREAST PARENCHYMAL COMPOSITION: There are scattered areas of fibroglandular density. FINDINGS: Heart loop monitor is noted on the left. There is no evidence of suspicious mass, calcifica tion, or architectural distortion to suggest malignancy in either breast. There has been no suspiciou s interval change. IMPRESSION: 1. No mammographic evidence of malignancy. 2. Recommend routine screening mammography in one year. BI-RADS Category 1: Negative Reviewed, dictated and finalized at location A.
== END 2023-05-23 14:41 | disposition home or self-care (01) ==
LOC: ANHIMG 14:42
PROVIDERS: PCP Family Medicine; Visit Provider Family Medicine
DX: Z12.31 Encounter for screening mammogram for malignant neoplasm of breast (principal)
CPT/HCPCS: 77063; 77067

== ENCOUNTER 2024-08-22 14:52 | Outpatient (CLI) | payer OTHER, SELFPAY ==
--- NOTE | ~2024-08-22 | MM_ITS ---
EXAMINATION: MM screening [facility] w maria isabel HISTORY: Screening TECHNIQUE: Craniocaudal and mediolateral oblique 3-D tomosynthesis images were obtained and synthetic 2-D images were generated. CAD analysis was submitted and interpreted. COMPARISON: Comparison to multiple prior studies sequentially, with oldest reviewed study dated 11/08. BREAST PARENCHYMAL COMPOSITION: Not dense: There are scattered areas of fibroglandular density. FINDINGS: There is no evidence of suspicious mass, calcification, or architectural distortion to sugg est malignancy in either breast. There has been no suspicious interval change. IMPRESSION: 1. No mammographic evidence of malignancy. 2. Recommend routine screening mammography in one year. BI-RADS Category 1: Negative Reviewed, dictated and finalized at location B. 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
== END 2024-08-22 14:53 | disposition home or self-care (01) ==
LOC: ANHIMG 14:53
PROVIDERS: PCP Family Medicine; Visit Provider Family Medicine
DX: Z12.31 Encounter for screening mammogram for malignant neoplasm of breast (principal)
CPT/HCPCS: 77063; 77067

== ENCOUNTER 2025-05-21 08:26 | Outpatient (CLI) | payer OTHER, SELFPAY ==
--- NOTE | ~2025-05-21 | US_ITS ---
US arterial ankle brachial ind INDICATION: Nonpressure chronic ulcer TECHNIQUE: Segmental pressures and plethysmographic and Doppler waveforms of the brachial and lower e xtremity arteries were obtained. COMPARISON: None. FINDINGS: Right and left brachial artery pressures of 114 mm Hg and 111 mm Hg, respectively, are concordant (no rmal difference <= 30 mmHg). The right ankle-brachial index (TOMI) is 1.24 (normal >= 0.9-1.0). The right great toe-brachial index (TBI) is 0.38 (normal >= 0.60). The left TOMI is 1.18. The left TBI is 0.59. IMPRESSION: 1. Normal ankle-brachial indices. 2: Diminished toe brachial indices, consistent with bilateral peripheral arterial disease. Reviewed, dictated and finalized at location B. IMPRESSION: 1. Normal ankle-brachial indices. 2: Diminished toe brachial indices, consistent with bilateral peripheral arter ial disease.
--- OUTSIDE RECORDS SUMMARY | 2025-05-21 08:36 | XMS_ITS | Patient Health Record ---
Author Organization [facility] Address [address] [place] [address] Care Team Providers Care Inside Sales Assistant Name Role Phone Maciej Rubalcava Unavailable [phone] Reason For Referral No Information Medications Medication SIG (Take, Route, Frequency, Duration) Notes Start Date End Date Status Meloxicam 15 MG Oral 01/24/2020 Act compa [place] Carbonate 300 MG Oral 01/24/2020 Active lamoTRIgine 100 MG Oral 01/24/2020 Active Mirtazapine 45 MG Oral 01/24/2020 A ctive clonazePAM 0.5 MG Oral 01/24/2020 A ctive Atorvastatin Calcium 20 MG Oral 01/24/2020 Active risperiDONE 0.5 MG Oral 01/24/2020 Active amLODIPine Besylate 10 MG Oral 01/24/2020 Active Irbesartan 300 MG Oral 01/24/2020 A ctive Omeprazole 40 MG Oral 01/24/2020 Ac tive Metoprolol Succinate ER 50 MG Oral 01/24/2020 Active Montelukast Sodium 10 MG Oral 01/24/2020 Active Immunizations Vaccine Route Administration Date Status Comme nts Hep B, adult dosage Unknown 04/21/1998 Administered Influenza virus vaccine, quadrivalent (IIV4), split virus, 0.25 mL dosage Unknown 07/27/2019 Administered MMR Unknown 01/11/1995 Administered Tdap Unknown 08/01/2018 Administered Plan Of Treatment No Information Insurance Providers Payer Name Payer Address Payer Phone Subscriber Number Group Number Insured Name Patient Relationship to Insured Coverage Start Date Coverage End Date [employer] [address] [place] [address] [id number] NGHIA SCHREIBER Self - patient is the insured Medical (General) History Surgical History Surgery Date(Month/Year) Tympanectomy (91453111) Mastoidectomy (36883920) Colonoscopy (96698821) Tympanotomy ([id number])
--- OUTSIDE RECORDS SUMMARY | 2025-05-21 08:36 | XMS_ITS | Encounter Summary ---
Author Organization [facility] Address [facility] [place] [address] Care Team Providers Care Senior Director Of [employer] Technology Solutions Name Role Phone Lino Kraft MD Primary Care Provider [phone] Encounter Details Date Type Department Care Team (Late st Contact Info) Description 06/14/2023 [employer] Communication Message [employer] [facility] [employer] [facility] [address] [place] [address] [employer], [facility] Provider Patient Amendment Request Social History Tobacco Use Types Packs/Day Years Used Date Smoking Tobacco: Never Smokeless Tobacco: Never Alcohol Use Standard Drinks/Week Comments Not Currently 0 (1 standard drink = 0.6 oz pur e alcohol) Comments No Sex and Gender Information Value Date Recorded Sex Assigned at Not on file Legal Sex Female 7:30 PM CDT Gender Identity Not on file Sexual Orientation Not on file documented as of this encounter Plan of Treatment Not on file documented as of this encounter Visit Diagnoses Not on filedocumented in this encounter Care Teams Senior Director Of [employer] Relationship Specialty Start Date End Date Lino Kraft MD [address] [facility] [address] [place] [address] PCP - General FAMILY PRACTICE 12/12/21 documented as of this encounter
== END 2025-05-21 08:27 | disposition home or self-care (01) ==
PROVIDERS: PCP Family Medicine; Visit Provider Family Medicine
DX: L97.509 Non-pressure chronic ulcer of other part of unspecified foot with unspecified severity (principal)
CPT/HCPCS: 93922

== ENCOUNTER 2025-08-21 09:06 | Outpatient (CLI) | payer OTHER, SELFPAY ==
--- OUTSIDE RECORDS SUMMARY | 2024-10-09 11:00 | XMS_ITS | Encounter Summary ---
Author Organization [facility] Address [address] [place] [address] Phone Care Team Providers Care Implementation Project Coordinator Name Role Phone Lino Kraft MD Primary Care Provider Demond Talamantes MD Unavailable [phone] Reason for Visit * Reason Comments Gait Problem Follow-up Encounter Details Date Type Department Care Team (Late st Contact Info) Description 10/09/2024 10:00 AM PICTURE COPYIST Office Visit [facility] Movement Disorders [address] [place] [phone] Nic Garcia MD [address] [place] [address] Gait disorder (Primary Dx) Social History Tobacco Use Types Packs/Day Years Used Date Smoking Tobacco: Never Smokeless Tobacco: Never Comments Unknown Sex and Gender Information Value Date Recorded Sex Assigned at Not on file Legal Sex Female 7:11 PM PICTURE COPYIST Gender Identity Female 09/07/2020 6:37 PM PICTURE COPYIST Sexual Orientation Not on file 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 Not on file Not on file documented as of this encounter Last Filed Vital Signs Vital Sign Reading Time Taken Comments Blood Pressure 120/77 10/09/2024 9:18 AM PICTURE COPYIST Pulse 73 10/09/2024 9:18 AM PICTURE COPYIST Temperature - - Respiratory Rate - - Oxygen Saturation - - Inhaled Oxygen Concentration - - Weight 98.7 kg (217 lb 9.6 oz) 10/09/2024 9:18 A M PICTURE COPYIST Height 165.1 cm (5' 5) 10/09/2024 9:18 AM PICTURE COPYIST Body Mass Index 36.21 10/09/2024 9:18 AM PICTURE COPYIST documented in this encounter Patient Instructions * Patient Instructions* Yvonne Black MD - 10/09/2024 10:00 AM PICTURE COPYIST Discussed reducing carbidopa/levodopa after the holidays Can stop nighttime tablet for 2 weeks, monitor how you are doing If still stable then go to 1/2 tab twice daily for 2 weeks If still doing well stop carbidopa/levodopa If at some point you think your gait is worsening can always go back to prior dose URE COPYIST documented in this encounter Progress Notes * Nic Garcia MD - 10/09/2024 10:00 AM CST Error URE COPYIST * Yvonne Black MD - 10/09/2024 10:00 AM CST [facility] Office Visit Patient: Jess Chávez Referred by: Lino Kraft,* : 1960 Visit Date: 10/09/2024 Clinician: Nic Powers MD Chief Complaint Jess Chávez is a 64 y.o. female who presents for Gait Problem and Follow-up Hand Dominance: Right Referred by Lino Kraft, *. Her PMD is Lino Kraft MD. HPI: Ms. Chávez is a very pleasant 64 y.o. female with a history of possible parkinsonism who currently presents to our clinic for a follow-up visit. In summary, she initially presented with symptoms around 2019, which were better characterize this difficulty walking, perceived as sudden falls. She was initially seen by Dr. Powell, who thought her symptoms could be potentially explained by parkinsonism. Around April of 2022, she was started on le vodopa/carbidopa. She was last seen in our clinic in January 2024 At that time, we did not find any evidence of parkinsonism, though we have continued her medications. Since then, she has been doing well, she stopped using her walker in April and feels well even without it. She continues to take levodopa/carbidopa one tablet 3 times daily, which she believes has helped her in the past. Specifically, she thought it helped with fine motor movements, her writing and also with her gait. She now feels less wobbly than before she stopped using a walker and no falls. She does not notice dramatic effects but she does know she feels better.She is not aware of the medication kicking in, or wearing off. There is also no associated movements with the medication, denies twisting, posturing, cramping. From a non motor perspective, she has been doing much better from her gait and balance. She exercises five days a week along with personal training twice a week. She also denies any other non motor symptoms, including cognitive difficulties, or hallucinations. Her sleep is not doing well, she has no difficulty falling asleep but has difficulty staying asleep. She is working with her psychiatrist on sleep. Current Outpatient Medications Medication Sig Dispense Refill aspirin 81 mg enteric coated tablet Take 1 tablet (81 mg total) by mouth daily 30 tablet 11 atorvastatin (LIPITOR) 80 mg tablet carbidopa-levodopa (SINEMET) 25-100 mg per tablet Take 1 tab 3 times a day 270 tablet 3 cyanocobalamin (Vitamin B-12) 1,000 mcg tablet Take 1 tablet (1,000 mcg total) by mouth daily [address] (VOLTAREN) 75 mg EC tablet Take 1 tablet (75 mg total) by mouth 2 (two) times a day irbesartan (AVAPRO) 300 mg tablet lamoTRIgine (LaMICtal) 100 mg tablet Take 1 tablet (100 mg total) by mouth 2 (two) times a day 60 tablet 0 metoprolol XL (TOPROL-XL) 50 mg extended release tablet Take 1 tablet (50 mg total) by mouth daily montelukast (SINGULAIR) 10 mg tablet Take 1 tablet (10 mg total) by mouth daily omeprazole (PriLOSEC) 40 mg capsule Take 1 capsule (40 mg total) by mouth daily traZODone (DESYREL) 100 mg tablet zaleplon (SONATA) 5 mg capsule Take 1 capsule (5 mg total) by mouth nightly No current facility-administered medications for this visit. Allergies Allergen Reactions Biaxin [Clarithromycin] Rash Ciprofloxacin Rash, Diarrhea, Hives and Itching E.E.S. Rash Erythromycin Diarrhea, Hives, Itching and Rash Penicillins Rash, Diarrhea, Hives and Itching Septra Ds [Sulfamethoxazole-Trimethoprim] Rash Suprax [Cefixime] Rash Tetracycline Rash, Diarrhea, Hives and Itching Sulfamethoxazole Unknown Trimethoprim Unknown Past Medical History: Diagnosis Date Acid indigestion Anxiety and depression B12 deficiency GERD (gastroesophageal reflux disease) to long ago to remember Heart murmur Hypertension Mixed hyperlipidemia Obesity Osteoarthritis Sinusitis Past Surgical History: Procedure Laterality Date COLONOSCOPY 01/04/2018 COLONOSCOPY 04/09/1990 EXPLORATORY TYMPANOTOMY 1995 KIDNEY SURGERY 03/11/1997 LASIK 10/05/2007 MASTOIDECTOMY 1994 TYMPANOPLASTY 09/08/1987 Type 1 Tympanoplasty TYMPANOPLASTY W/ MASTOIDECTOMY 1997 TYMPANOPLASTY W/ MASTOIDECTOMY 1989 Family History Problem Relation Age of Onset Hypertension Mother Hyperlipidemia Mother Dementia Mother Hypertension Father Hyperlipidemia Father Gait disorder Neg Hx Ethnicity: Non- Social History Tobacco Use Smoking status: Never Smokeless tobacco: Never Substance and Sexual Activity Drug use: Never Sexual activity: Not Currently Partners: Male Comment: BCP Alcohol Use: Not on file Review of Systems Vitals BP 120/77 (BP Location: Right arm, Patient Position: Sitting) Pulse 73 Ht 165.1 cm (5' 5) Wt 98.7 kg (217 lb 9.6 oz) BMI 36.21 kg/m?? Physical Exam MDS UPDRS PART III: Motor Examination Is the Patient on Parkinson's Medications?: Yes Last Medication Given : Carbidopa/Levodopa Last med given Date: 10/09/24 Last med given time: 0730 Speech (Motor Examination): Normal Facial Expression: Normal Rigidity - Neck: Normal Rigidity - Right Upper Extremity: Normal Rigidity - Left Upper Extremity: Normal Rigidity - Right Lower Extremity: Normal Rigidity - Left Lower Extremity: Normal Finger Tapping - Right Hand: Normal Finger Tapping - Left Hand: Normal Hand Movements - Right Hand: Normal Hand Movements - Left Hand: Slight Pronation-Supination Movements - Right Hand: Normal Pronation-Supination Movements - Left Hand: Normal Toe Tapping - Right Foot: Normal Toe Tapping - Left Foot: Slight Leg Agility - Right Leg: Normal Leg Agility - Left Leg: Normal Arising From Chair: Normal Gait: Normal Freezing of Gait: Normal Postural Stability: Normal Posture: Normal Global Spontaneity of Movement (Body Bradykinesia): Normal Postural Tremor - Right Hand: Normal Postural Tremor - Left Hand: Normal Kinetic Tremor - Right Hand: Normal Kinetic Tremor - Left Hand: Slight Rest Tremor Amplitude - Right Upper Extremity: Normal Rest Tremor Amplitude - Left Upper Extremity: Normal Rest Tremor Amplitude - Right Lower Extremity: Normal Rest Tremor Amplitude - Left Lower Extremity: Normal Rest Tremor Amplitude - Lip/Jaw: Normal Constancy of Rest: Normal Were dyskinesias present?: No Total Motor Score (out of 132): 3 10/09/2022 3:00 PM Neuropsychological Evaluation Testing Dam Worker Felicia Barreto Neuropsychological Evaluation START Time 15:14 Neuropsychological Evaluation STOP Time 15:49 TOTAL Neuropsychological Evaluation Time (minutes) 35 minutes MOCA Total Score (out of 30) 20 Mini-Mental Total Score ((out of 30) 27 Mini-Mental Score Evaluation 24+ Normal GDS Total Score (Short Version max 15) 4 [place] Total Score (out of 24) 6 PDQ-39 Total Score (out of 156) 65 QUIP-RS Score (out of 112) 2 PSQI Subjective Sleep Quality 2 PSQI Sleep Latency 2 PSQI Sleep Duration 0 PSQI Habitual Sleep Efficiency 3 PSQI Sleep Disturbances 2 PSQI Use of sleep medication 0 PSQI Daytime dysfunction 2 Global PSQI 11 Total Lexi Renoer REM Score (out of 13) 4 Total Apathy Evaluation Scale 10 HAD Anxiety Score 4 HAD Depression Score 3 Assessment/Plan Diagnoses and all orders for this visit: Gait disorder (R26.9) (Primary) Assessment & Plan: Ms. Chávez is a 64 y.o. female with a history of possible parkinsonism previously diagnosed byDr. Powell who currently presents to our clinic for a follow-up visit. She has been taking levodopa one tablet three times daily, along with physical therapy, and exercise, which has significantly helped her symptoms. She has stopped using her walker as her gait and balance are markedly improved. Her physical examination today continues to be unremarkable, with no clear evidence of parkinsonism, although we agree that some of her symptoms might be masked by the current levodopa used. We discussed down titration of carbidopa/levodopa as clear benefit from medication is unclear. She is amenable to this after the holidays She was encouraged to continue exercise and therapies. Recommendations - Down titration of carbidopa/levodopa after the holidays - Will message if symptoms worsen off carbidopa/levodopa Return in about 8 months (around 06/09/2025). Yvonne Black MD Movement Neurology Fellow [facility] in [place] Cosigned by Nic Garcia MD at 10/09/2024 3:36 PM PICTURE COPYIST URE COPYIST URE COPYIST Associated attestation - Nic Garcia MD - 10/09/2024 3:36 PM PICTURE COPYIST I have seen and examined the patient. I agree with the findings and plan of care as documented in the resident/fellow's note. 64-year-old woman with history of possible parkinsonism, currently doing well on low doses of levodopa/carbidopa. We have suggested slightly reducing her levodopa/carbidopa dose. If she notices any worsening symptoms, we might consider going back up. My total encounter time on 10/09/2024 was 40 minutes which was spent in the activities documented in the note. This includes time spent prior to the visit and after the visit in direct care of the patient. This time does not include time spent in any separately reportable services. Nic Rodriges MD, MSc Community Service Worker of Neurology Movement Disorders Department of Neurology [facility] documented in this encounter Miscellaneous Notes * Assessment & Plan Note - Yvonne Black MD - 10/09/2024 11:30 AM CSTAssociated Problem(s): Gait disorder Ms. Chávez is a 64 y.o. female with a history of possible parkinsonism previously diagnosed by Dr. Powell who currently presents to our clinic for a follow-up visit. She has been taking levodopaone tablet three times daily, along with physical therapy, and exercise, which has significantly helped her symptoms. She has stopped using her walker as her gait and balance are markedly improved. Her physical examination today continues to be unremarkable, with no clear evidence of parkinsonism, although we agree that some of her symptoms might be masked by the current levodopa used. We discussed down titration of carbidopa/levodopa as clear benefit from medication is unclear. She is amenable to this after the holidays She was encouraged to continue exercise and therapies. Recommendations - Down titration of carbidopa/levodopa after the holidays - Will message if symptoms worsen off carbidopa/levodopa URE COPYIST documented in this encounter Plan of Treatment Not on file documented as of this encounter Visit Diagnoses Diagnosis Gait disorder- Primary Abnormality of gait documented in this encounter Historical Medications * This list may reflect changes made after this encounter. zaleplon (SONATA) 5 mg capsule Take 1 capsule (5 mg total) by mouth nightly 09/16/2024 added in this encounter Care Teams Implementation Project Coordinator Relationship Specialty Start Date End Date Lino Kraft MD [address] [place] [address] PCP - General Family Medicine 09/08/20 Demond Talamantes MD [address] [place] [address] Referring Physician Psychiatry 09/08/20 documented as of this encounter
--- OUTSIDE RECORDS SUMMARY | 2025-08-21 09:27 | XMS_ITS | Encounter Summary ---
Author Organization [facility] Healthcare Address [address] [place] [address] Care Team Providers Care Certified Industrial Hygienist Name Role Phone Lino Kraft MD Primary Care Provider Demond Talamantes MD Unavailable [phone] Encounter Details Date Type Department Care Team (Late Contact Info) Description 08/20/2025 Telephone [facility] Medical Group Cardiology [address] [place] [phone] Jamshid Lombardo MD [address] [facility] [address] [place] [id number] Social History Tobacco Use Types Packs/Day Years Used Date Smoking Tobacco: Never Smokeless Tobacco: Never Comments Unknown Sex and Gender Information Value Date Recorded Sex Assigned at Not on file Legal Sex Female 7:11 PM STAVE LOG CUT OFF SAW OPERATOR Gender Identity Female 09/07/2020 6:37 PM STAVE LOG CUT OFF SAW OPERATOR Sexual Orientation Not on file Occupation Industry Job Start Date Job End Date [place] Not on file Not on file Not on file documented as of this encounter Miscellaneous Notes * Telephone Encounter - Ezequiel Chowdary RN - 08/20/2025 9:46 AM CDT FYI [employer] Implantable Loop Recorder-Biomonitor III. Dx; Syncope. DOI 12/23/2020. [employer] Home Monitor. Routine ILR remote. Normal device function. Battery function-MOSHE detected on 08/13/25 Presenting rhythm: NSR Medications: ASA 81 mg, irbesartan 300 mg, Toprol-XL 50 mg Counters since last scheduled transmission on 07/13/25. --1 Tachy - EGM demonstrates SVT and noisy EGM --0 Bon --0 Pause --0 Symptom --1 AF - EGM demonstrates sinus rhythm and inappropriate detection of AFib due to oversensing See scanned report. [employer] remote f/u pending possible replacement. Ezequiel Chowdary RN documented in this encounter Plan of Treatment Not on file documented as of this encounter Visit Diagnoses Not on filedocumented in this encounter Care Teams Certified Industrial Hygienist Relationship Specialty Start Date End Date Lino Kraft MD [address] [place] [address] PCP - General Family Medicine 09/08/20 Demond Talamantes MD [address] [place] [address] Referring Physician Psychiatry 09/08/20 documented as of this encounter
--- OUTSIDE RECORDS SUMMARY | 2025-08-21 09:27 | XMS_ITS | Clinical Summary ---
Author Organization [facility] Address [address] [facility] [address] Care Team Providers Care Continuity Person Name Role Phone Madan Mckinley MD Primary Care Provider [phone] Source Comments [facility],non-owned Affiliates and Associated Physician Practices is amultiple site organization consisting of ambulatory clinics and hospital sitesin [place], [place], [place] and [place]. This disclosure is being madepursuant to the Care Everywhere program and may not contain all information available regarding this patient. Last updated 18.[facility] Immunizations Immunization Administration Dates Next Due TDAP (7yrs+) 08/01/2018 Social History Tobacco Use Types Packs/Day Years Used Date Smoking Tobacco: Never Assessed Comments Unknown Sex and Gender Information Value Date Recorded Sex Assigned at Not on file Legal Sex Female 7:38 PM DIRECTOR SECURITY MANAGEMENT Gender Identity Not on file Sexual Orientation Not on file Plan of Treatment Health Maintenance Due Date Last Done Comments COLOGUARD (AGES 45-75) - COL ON CA SCREENING 1960 COLON MONITORING 1961 COLONOSCOPY - COLON CA SCREENING 1961 CT COLONOGRAPHY - COLON CA SCREENING 1960 Colorectal Cancer Screening 1960 FIT - COLON CA SCREENING 1961 FLEX SIG - COLON CA SCREENING 1960 LIPID TESTING 1960 MAMMOGRAM 1960 HIV SCREENING 1976 HEPATITIS C SCREENING 06/02/1979 PNEUMOCOCCAL VACCINE 50+ (1 of 1 - PCV) 2011 ZOSTER VACCINE (1 of 2) 2011 DEPRESSION SCREENING 10/22/2024 COVID-19 VACCINE (1 - 2023-2 5 season) 2025 INFLUENZA VACCINE (#1) 2025 DTAP/TDAP/TD VACCINES (2 - T d or Tdap) 08/01/2028 08/01/2018 Respiratory Syncytial Virus (RSV) Vaccine Pt: or over 60 yrs (1 - 1-dose 75+ series) 2036 HEPATITIS B VACCINE Aged Out No longe r eligible based on patient's age to complete this topic HIB VACCINE Aged Out No longer eligi ble based on patient's age to complete this topic HPV VACCINE Aged Out No longer eligi ble based on patient's age to complete this topic MENINGOCOCCAL (Group B) VACC INE SHARED DECISION-MAKING Aged Out No longer eligibl e based on patient's age to complete this topic MENINGOCOCCAL GROUPS A/C/Y/W VACCINE Aged Out No longer eligible b ased on patient's age to complete this topic Insurance [employer] Care Teams Continuity Person Relationship Specialty Start Date End Date Madan Mckinley MD [address] [place] [address] [place] [id number] PCP - General 03/18/09
--- OUTSIDE RECORDS SUMMARY | 2025-08-21 09:27 | XMS_ITS | Encounter Summary ---
Author Organization [facility] Address [facility] [place] [address] Care Team Providers Care Retrieval Specialist Name Role Phone Lino Kraft MD Primary Care Provider [phone] Encounter Details Date Type Department Care Team (Late st Contact Info) Description 09/05/2023 [employer] Message [facility] [address] [place] [address] [employer], [facility] Provider Patient Amendment Request Approval Social History Tobacco Use Types Packs/Day Years [...] on filedocumented in this encounter Care Teams Retrieval Specialist Relationship Specialty Start Date End Date Lino Kraft MD [address] [facility] [address] [place] [address] PCP - General FAMILY PRACTICE 12/12/21 documented as of this encounter
--- OUTSIDE RECORDS SUMMARY | 2025-08-21 09:27 | XMS_ITS | Clinical Summary ---
Author Organization [facility] Address [facility] [place] [address] Care Team Providers Care Corporate Pilot Name Role Phone Lino Kraft MD Primary Care Provider Demond Talamantes MD Unavailable [phone] Allergies Active Allergy Reactions Criticality Noted Date Comments Clarithromycin Rash Medium 09/08/2020 Ciprofloxacin Rash,Diarrhea,Hives, Itc ajit Medium 09/08/2020 E.E.S. Rash Medium 09/08/2020 Erythromycin Diarrhea,Hives,Itchi ng, Rash Medium 12/13/2020 Penicillins Rash,Diarrhea,Hives, Itc ajit Medium 09/08/2020 Sulfamethoxazole-Trimethoprim Rash Medium 2019 Sulfamethoxazole Unknown 08/22/2022 Cefixime Rash Medium 09/08/2020 Tetracycline Rash,Diarrhea,Hives, Itc ajit Medium 09/08/2020 Trimethoprim Unknown 08/22/2022 Medications omeprazole (PriLOSEC) 40 mg capsule Take 1 capsule (40 mg total) by mouth daily 07/04/2020 Active metoprolol XL (TOPROL-XL) 50 mg extended release tablet Take 1 tablet (50 mg total) by mouth daily 08/22/2020 Active montelukast (SINGULAIR) 10 mg tablet Take 1 tablet (10 mg total) by mouth daily 07/25/2020 Active lamoTRIgine (LaMICtal) 100 mg tablet Take 1 tablet (100 mg total) by mouth 2 (two) times a day 60 tablet 09/29/2022 Active cyanocobalamin (Vitamin B-12) 1,000 mcg tablet Take 1 tablet (1,000 mcg total) by mouth daily 30 tablet 09/29/2022 Active irbesartan (AVAPRO) 300 mg tablet 01/02/2023 Active aspirin 81 mg enteric coated tabletIndicatio ns:Atherosclero sis of right carotid artery Take 1 tablet (81 mg total) by mouth daily 30 tablet 11 02/19/2023 Active atorvastatin (LIPITOR) 80 mg tablet 03/14/[address] (VOLTAREN) 75 mg EC tablet Take 1 tablet (75 mg total) by mouth 2 (two) times a day 05/29/2024 Active traZODone (DESYREL) 100 mg tablet 03/04/2024 Active zaleplon (SONATA) 5 mg capsule Take 1 capsule (5 mg total) by mouth nightly 09/16/2024 Active carbidopa-levod opa (SINEMET) 25-100 mg per tabletIndicatio ns:Parkinsonism Take 1 tablet by mouth 2 (two) times a day Active cetirizine (ZyrTEC) 10 mg tablet Take 1 tablet (10 mg total) by mouth daily Active Active Problems Problem Noted Date Diagnosed Date Atherosclerosis of right carotid artery 02/20/20 Weight gain 02/19/2023 Parkinson's disease 05/10/2022 Assessment & Plan (04/13/2023 2:13 PM CDT): Ms. Chávez presented for a follow up. She was doing much better since her last visit. She was no longer living [facility] and was living with her parents. She continued to follow up with a therapist and psychiatrist to manage her mood. She still had some anxiety when riding in the car with her father. We discussed following up with her therapist for way to work through this. Not riding with him was not an option for her. She was exercising routinely. She was independent with her ADL's. We discussed that she can follow up with OT for a driving assessment if needed and to let us know should she need this. She wanted her levodopa order sent to [facility] and this was sent, but the number on her card ([phone]) was different from the number in her chart Recommendations: No medication changes today Levodopa order sent [facility] mail order Continue to exercise as tolerated Continue to follow up with psychiatrist and therapist Stay well hydrated Assessment & Plan (10/10/2022 8:43 AM EDGE POLISHER): Ms. Chávez presented for a follow up. She was present with her brother and sister in law. She lived in a SNF. She recently was not doing well with hallucinations and was in the hospital. She had a UTI that she completed antibiotics for. She also was on lithium and her level was 1.6 per her brother and this was discontinued by her psychiatrist. She also had Covid. She has had significant improvement especially after the lithium was discontinued. She had no hallucinations, she was more alert and her swallowing improved. She was in OT/PT one weekly and her brother thought she was getting it 5 days a week. Today, she was in a wheelchair and was able to stand and take some steps with assistance. She had hand tremor, bradykinesia, reduced dexterity and rigidity. Recommendations: 1. Continue the same levodopa for now 2. Continue PT and OT at least 3 days a week and more if tolerated 3. Fall precaution 4. Continue to follow up with psychiatrist and other healthcare providers as recommended and as needed 5. Follow up in 6 months and sooner if needed Nonrheumatic aortic valve stenosis 10/05/2021 Gait disorder 05/31/2021 Assessment & Plan (10/09/2024 11:30 AM EDGE POLISHER): Ms. Chávez is a 64 y.o. female [...] Will message if symptoms worsen off carbidopa/levodopa Assessment & Plan (05/10/2022 6:38 PM CDT): ASSESSMENT - 61 y.o. woman with a 15-month history of difficulty walking, perceived as sudden, after 3 falls that all occurred in one month. - Dx: today I saw several motor abnormalities on exam that I did not see last time (see below) and that point to possible Parkinson's disease. I explained this impression to Ms. Weldon and recommended starting carbidopa/levodopa. - Motor symptoms: there were parkinsonian abnormalities on exam, including mild hypomimia, hypokinesia, slow gait, and a positive pull test. The motor UPDRS score today was 14 in Apr 2022. Will start carbidopa/levodopa for possible PD. PLAN (phrased as addressed to the patient): - As we discussed, today I saw in your neurologic examination signs of possible Parkinson's disease. - I recommend trying a medication for Parkinson's disease to see if your walking and balance can improve. - Start carbidopa/levodopa 25/100 (prescribed): week 1, 1/2 tab 2x/day (morning and dinner); week 2, 1/2 tab 3x/day (morning, midday, dinner); week 3 and after 1 tab 3x/day - Look out for the following possible side effects, and call my office if any of these side effects appear: nausea, dizziness when standing, drowsiness, vivid dreams, nightmares, confusion, hallucinations (seeing things), paranoia, fainting (which can cause falls and head injury). - Contact my office in 2 months to report whether your walking or balance have improved. My total encounter time on 05/10/2022 was 36 minutes which was spent in the activities documented in the note. This includes time spent prior to the visit and after the visit in direct care of the patient. This time does not include time spent in any separately reportable services. Falls frequently 05/03/2021 Assessment & Plan (05/31/2021 11:22 AM CDT): NEUROPSYCHOLOGICAL EVALUATION: INTERPRETATION (for Assessment and Plan, see further below) Mildly impaired cognitive performance on MMSE; Normal cognitive performance on MoCA. Moderate evidence of depression on GDS; Strong evidence of depression on HADS. Moderate evidence of anxiety on HADS. No evidence of daytime drowsiness on [place] scale. Mild evidence of REM Behavior Disorder (RBD) on Stiasny-Kolster scale. These scores establish a baseline for potential future reference and do not require a change in current plan. ASSESSMENT - 60 y.o. woman with a 3-month history of sudden difficulty walking after 3 falls that have features of accidental falls, on a background of stable ventriculomegaly, anxiety, depression. - The examination revealed nearly normal walking when I walked next to her without supporting her. The only abnormality was mild difficulty with tandem. The positive pull test may be due to anxiety. The BECCA score today was 2.5. - My impression is that Ms. Chávez has fear of falling, that is, an amplified concern for a mild amount of gait unsteadiness. The treatment for this condition includes treatment of anxiety and physical therapy. - I will provide a referral to physical therapy for gait training. The rationale for physical therapy is that Ms. Weldon has relatively good balance but has fear of falling as part of her anxiety syndrome. She would benefit from retraining of gait to learn she can walk without a walker after all. - I will defer to Dr. Talamantes, her current psychiatrist, to see if they agree to an increase in her anxiety regimen. PLAN (phrased as addressed to the patient): - As we discussed, your performance on the balance tests in the office was very good today. I think your condition is most likely what is called fear of falling: your brain experiences your balance as worse than it actually is. - One part of treatment for this condition is physical therapy to help your brain regain confidence in your balance. - The other part is adjustments of medications for anxiety. For example, you could increase your mirtazapine dose if that is an option. Or you could increase clonazepam to 1 mg 3x/day (rather than 0.5 mg twice a day). I will defer to your psychiatrist, Dr. Talamantes, to decide what adjustments can be made to your anxiety treatment. - Contact my office in 1 month with an update of any changes in your medications and to report how physical therapy is going. This encounter's total ghlo-tv-sirc time was greater than 60 minutes. I spent more than 50% of this time in counseling and/or coordination of care as documented in the note. The patient visit started at 1309 and ended at 1421. Greater than 50% of the visit was spent on counseling and coordinating care. Patient was counseled on rationale for trying physical therapy. NOTE: The present note includes, below, the line Ambulatory referral to Neurology. This statement is included as a mandatory component of the note template that I do not have the ability to remove. This statement has no clinical significance. I am NOT ordering a referral to Neurology. Status post placement of implantable loop record er 12/23/2020 Overview (12/24/2020): [employer] Implantable Loop Recorder-Biomonitor III. Dx; Syncope. DOI 12/23/2020. [employer] Home Monitor. 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 04/14/2011 Dysfunction of eustachian tube 04/14/2011 Resolved Problems Problem Noted Date Diagnosed Date Resolved Date Shortness of breath 09/25/2022 02/20/20 23 Acute cystitis without hematuria 09/11/2022 02/19/2023 Transient alteration of awareness 09/11/2022 02/19/2023 Murmur, heart 09/08/2020 02/19/2023 Numbness and tingling of bot h lower extremities 02/19/2023 Numbness and tingling of bot h upper extremities 10/05/2021 Encounters Date Type Department Care Team Description 08/20/2025 Telephone [facility] [address] [place] [address] DARRIUS Brantley [address] Jamshid Lombardo MD 08/12/2025 7:00 AM CDT Ancillary Procedure [facility] [address] [place] [address] DARRIUS Brantley [id number] Status post placement of implantable loop recorder; Syncope and collapse 07/13/2025 7:15 AM CDT Ancillary Procedure [facility] [address] [place] [address] DARRIUS Brantley [id number] Status post placement of implantable loop recorder; Syncope and collapse 06/04/2025 11:00 AM CDT Office Visit [facility] [address] [place] [address] Jamshid Lombardo MD Nonrheumatic aortic valve stenosis (Primary Dx); Status post placement of implantable loop recorder 06/01/2025 7:15 AM CDT Ancillary Procedure [facility] [address] [facility] [address] [address] Status post placement of implantable loop recorder (Primary Dx); Syncope and collapse from Last 3 Months Immunizations Immunization Administration Dates Next Due Influenza, Unspecified 08/05/2022 Surgical History Surgery Date Site/Laterality Comments TYMPANOPLASTY W/ MASTOIDECTOMY 10/22/1997 - 10/21/1998 MASTOIDECTOMY 10/22/1993 - 10/21/1994 TYMPANOPLASTY W/ MASTOIDECTOMY 10/22/1989 - 10/21/1990 EXPLORATORY TYMPANOTOMY 10/22/1995 - 10/21/1996 TYMPANOPLASTY 09/08/1987 Type 1 Tympanoplasty COLONOSCOPY 01/04/2018 COLONOSCOPY 04/09/1990 LASIK 10/05/2007 KIDNEY SURGERY 03/11/1997 Medical History Medical History Date Comments Hypertension Mixed hyperlipidemia B12 deficiency Anxiety and depression Osteoarthritis Heart murmur Obesity Sinusitis Acid indigestion GERD (gastroesophageal reflux disease) to long a go to remember Family History Medical History Relation Name Comments Hyperlipidemia Father Hypertension Father Dementia Mother Hyperlipidemia Mother Hypertension Mother Gait disorder Neg Hx Relation Name Status Comments Brother 1 Alive Brother 2 Alive Father Alive Mother Alive Sister Alive Social History Tobacco Use Types Packs/Day Years Used Date Smoking Tobacco: Never Smokeless Tobacco: Never Tobacco Cessation:Counseling Given: Not Answered Comments Unknown Sex and Gender Information Value Date Recorded Sex Assigned at Not on file Legal Sex Female 7:11 PM EDGE POLISHER Gender Identity Female 09/07/2020 6:37 PM EDGE POLISHER Sexual Orientation Not on file Occupation Industry Job Start Date Job End Date [employer] Not on file Not on file Not on file Obstetrics History Last Filed Vital Signs Vital Sign Reading Time Taken Comments Blood Pressure 116/60 06/04/2025 10:41 AM CDT Pulse 70 06/04/2025 10:41 AM CDT Temperature 37.2 C (98.9 F) 04/13/2023 12:48 PM CDT Respiratory Rate 20 09/29/2022 10:4 0 AM EDGE POLISHER Oxygen Saturation 99% 06/04/2025 10: 41 AM CDT Inhaled Oxygen Concentration - - Weight 100.7 kg (222 lb 1.6 oz) 025 10:41 AM CDT Height 165.1 cm (5' 5) 06/04/2025 10:4 1 AM CDT Body Mass Index 36.96 06/04/2025 10:41 AM CDT Plan of Treatment Health Maintenance Due Date Last Done Comments Breast Cancer Screening-Mammogram 1961 Cervical Cancer Screening 1961 Colon Cancer Screening-Colonoscopy 1961 Hepatitis C Screening 1961 Regular Well Visit/Exam 18-64 1979 Depression Screening 10/09/2023 10/09/2022 Influenza Vaccine (#1) 2025 , 08/10/2023, 08/05/2022, Additional history exists DTaP/Tdap/Td Vaccine (3 - Td or Tdap) 08/01/2028 08/01/2018, 08/01/2018 Hepatitis B Screening Completed 04/21/1998 Zoster Vaccine Completed 10/05/2020, 07/23/2020 Pneumococcal vaccine <65 Aged Out No longer eligible based on patient's age to complete this topic Medical Devices Implanted Type Area Legal Officer Device Identifier Shelf Expiration Date Model / Serial / Lot Loop Recorder Chest [employer] Procedures Procedure Name Priority Date/Time Associated Diagnosis Comments DEVICE CHECK - REMOTE Routine 07/13/2025 12:26 PM CDT Status post placement of implantable loop recorder Syncope and collapse DEVICE CHECK - REMOTE Routine 06/02/2025 9:25 AM CDT Syncope and collapse from Last 3 Months Results * DEVICE CHECK - REMOTE (07/13/2025 12:26 PM CDT) Anatomical Region Laterality Modality Other Narrative 08/10/2025 7:17 AM CDT [employer] Implantable Loop Recorder-Biomonitor III. Dx; Syncope. DOI 12/23/2020. [employer] remote. Routine ILR remote. Normal device function. Battery function-Ok. Presenting rhythm: VS, regular-SR 70 bpm. Medications: ASA 81 mg, Toprol XL. Counters since last scheduled transmission on 06/01/2025. --0 Tachy (total: 82), egm oversensing t-wave and noise. --0 Bon (total: 0) --0 Asystole (total: 24), egm 3 second pause noted. --0 Sudden rate drop (total: 33). --0 Symptom (total: 0) --3 AF (total: 48), egm's SR with oversensing. Ectopic beats outside of AF-753. See scanned report. [employer] remote f/u 08/24/2025. Ellie Bobby RN Jamshid Lombardo MD [facility] PROC EDURES Final Result * DEVICE CHECK - REMOTE (06/02/2025 9:25 AM CDT) Anatomical Region Laterality Modality Other Narrative 06/26/2025 12:40 PM CDT [employer] Implantable Loop Recorder-Biomonitor III. Dx; Syncope. DOI 12/23/2020. [employer] remote. Routine ILR remote. Normal device function. Battery function-Ok. Presenting rhythm: VS, regular-SR 70 bpm. Medications: ASA 81 mg, Toprol XL. Counters since last scheduled transmission on 04/20/2025. --0 Tachy (total: 82), egm oversensing t-wave and noise. --0 Bon (total: 0) --0 Asystole (total: 24), egm 3 second pause noted. --0 Sudden rate drop (total: 33). --0 Symptom (total: 0) --0 AF (total: 45), egm's SR with oversensing. Ectopic beats outside of AF-481. See scanned report. [employer] remote f/u 07/13/2025. Ellie Bobby RN Jamshid Lombardo MD [facility] PROC EDURES Final Result from Last 3 Months Insurance [employer] [facility] [id number] Advance Directives For more information, please contact: [phone] * Full Code (Latest Code Status on File) Date Activated Date Inactivated Comments 09/26/2022 12:08 AM 09/29/2022 10:09 PM Care Teams Corporate Pilot Relationship Specialty Start Date End Date Lino Kraft MD [address] [place] [address] PCP - General Family Medicine 09/08/20 Demond Talamantes MD [address] [place] [address] Referring Physician Psychiatry 09/08/20
--- OUTSIDE RECORDS SUMMARY | 2025-08-21 09:27 | XMS_ITS | Encounter Summary ---
Author Organization [facility] Address [facility] [place] [address] Care Team Providers Care Plant Floor Automation Manager Name Role Phone Lino Kraft MD Primary Care Provider [phone] Encounter Details Date Type Department Care Team (Late st Contact Info) Description 06/14/2023 [facility] Message [facility] [address] [place] [address] [place], [facility] Provider Patient Amendment Request Social History [...] on filedocumented in this encounter Care Teams Plant Floor Automation Manager Relationship Specialty Start Date End Date Lino Kraft MD [address] [facility] [address] [place] [address] PCP - General FAMILY PRACTICE 12/12/21 documented as of this encounter
--- OUTSIDE RECORDS SUMMARY | 2025-08-21 09:27 | XMS_ITS | Patient Health Record ---
Author Organization [facility] Address [address] [place] [address] Care Team Providers Care Business Quality Assurance Analyst Name Role Phone Maciej Rubalcava Unavailable [phone] Reason For Referral No Information Medications Medication SIG (Take, Route, Frequency, Duration) Notes Start Date End Date Status Meloxicam 15 MG Tablet Oral 01/24/2020 Active [place] Carbonate 300 MG Capsule Oral 01/24/2020 Active lamoTRIgine 100 MG Tablet Oral 01/24/2020 Active Mirtazapine 45 MG Tablet Oral 01/24/2020 Active clonazePAM 0.5 MG Tablet Oral 01/24/2020 Active Atorvastatin Calcium 20 MG Tablet Oral 01/24/2020 Active risperiDONE 0.5 MG Tablet Oral 01/24/2020 Active amLODIPine Besylate 10 MG Tablet Oral 01/24/2020 Active Irbesartan 300 MG Tablet Oral 01/24/2020 Active Omeprazole 40 MG Capsule Delayed Release Oral 01/24/2020 Active Metoprolol Succinate ER 50 MG Tablet Extended Release 24 Hour Oral 01/24/2020 Active Montelukast Sodium 10 MG Tablet Oral 01/24/2020 Active Immunizations Vaccine Route Administration Date Status Comme nts Hep B, adult dosage Unknown 04/21/1998 Administered Influenza virus vaccine, quadrivalent (IIV4), split virus, 0.25 mL dosage Unknown 07/27/2019 Administered MMR Unknown 01/11/1995 Administered Tdap Unknown 08/01/2018 Administered Social History Social History Additional Details Category Social Info Options Details Migrated Social History Migrated Social History Alcohol Intake: None 01/24/2020,Tobacco Years: Never smoker 01/24/2020 Plan Of Treatment No Information Insurance Providers Payer Name Payer Address Payer Phone Subscriber Number Group Number Insured Name Patient Relationship to Insured Coverage Start Date Coverage End Date [employer] [address] [place] [address] [id number] NGHIA SCHREIBER Self - patient is the insured Medical (General) History Surgical History Surgery Date(Month/Year) Tympanectomy (07161076) Mastoidectomy (38516480) Colonoscopy (12729220) Tympanotomy ([id number])
--- OUTSIDE RECORDS SUMMARY | 2025-08-21 09:27 | XMS_ITS | Clinical Summary ---
Author Organization [facility] Address [address] [place] [address] Care Team Providers Care Print Production Coordinator Name Role Phone Lino Kraft MD Primary Care Provider [phone] Allergies Active Allergy Reactions Criticality Noted Date Comments Cefixime Rash Medium 09/08/2020 Ciprofloxacin Diarrhea,Hives,Itchi ng,R josh Medium 09/08/2020 Clarithromycin Rash Medium 09/08/2020 Erythromycin Diarrhea,Hives,Itchi ng,R josh Medium 09/08/2020 Penicillins Diarrhea,Hives,Itchi ng,R josh Medium 09/08/2020 Sulfamethoxazole-Trimethoprim Rash Medium 2019 Tetracycline Diarrhea,Hives,Itchi ng,R josh Medium 09/08/2020 Medications antipyrine-reina zocaine (AURODEX) otic solution 4 Active ARIPiprazole (ABILIFY) 10 MG tablet Take 1 tablet by mouth daily. 3 Active atorvastatin (LIPITOR) 40 MG tablet Take 40 mg by mouth daily. 2 Active carbidopa-levo dopa (SINEMET) 25-100 MG tablet TAKE 1 & 1/2 (ONE & ONE-HALF) TABLETS BY MOUTH THREE TIMES DAILY 2 Active clindamycin (CLEOCIN T) 1 % external solution APPLY 2 DROPS DAILY TO PROCEDURE SITE 1 Active clonazePAM (KLONOPIN) 1 MG tablet 2 Active famotidine (PEPCID) 20 MG tablet Take 20 mg by mouth every 12 (twelve) hours. 2 Active guaiFENesin ER (MUCINEX) 600 MG 12 hr tablet Take 1-2 tablets by mouth 2 (two) times daily as needed. 4 Active irbesartan (AVAPRO) 300 MG tablet Take 300 mg by mouth daily. 2 Active lamoTRIgine (LAMICTAL) 100 MG tablet TAKE 1 TABLET BY MOUTH IN THE MORNING AND 2 AT BEDTIME 2 Active lithium 300 MG capsule TAKE 2 CAPSULES BY MOUTH ONCE DAILY AT NIGHT AT BEDTIME 2 Active meclizine (ANTIVERT) 25 MG tablet Take 25 mg by mouth 3 (three) times daily. 2 Active meloxicam (MOBIC) 15 MG tablet Take 15 mg by mouth daily. 2 Active metoprolol succinate ER (TOPROL-XL) 50 MG 24 hr tablet Take 1 tablet by mouth daily. Active mirtazapine (REMERON) 30 MG tablet Take 30 mg by mouth daily. 2 Active montelukast (SINGULAIR) 10 MG tablet Take 1 tablet by mouth daily. Active olmesartan (BENICAR) 20 MG tablet Take 1 tablet by mouth daily. Active omeprazole (PRILOSEC) 40 MG capsule Take 40 mg by mouth daily. 2 Active PARoxetine (PAXIL) 10 MG tablet Take 10 mg by mouth 2 (two) times daily. 2 Active raNITIdine (ZANTAC) 75 MG Tab 4 Active scopolamine (TRANSDERM-SCO P) 1 MG/3DAYS patch APPLY 1 PATCH EVERY 3 DAYS NEEDED FOR MOTION SICKNESS 2 Active sertraline (ZOLOFT) 50 MG tablet Take 50 mg by mouth daily. 2 Active terconazole (TERAZOL 3) 0.8 % vaginal cream INSERT 1 APPLICATORFUL VAGINALLY AT BEDTIME FOR 3 NIGHTS 2 Active traMADol (ULTRAM) 50 MG tablet Take 1 tablet by mouth daily as needed. 3 Active traZODone (DESYREL) 50 MG tablet Take 50 mg by mouth daily. Active venlafaxine XR (EFFEXOR-XR) 150 MG 24 hr capsule Take 1 capsule by mouth daily. Active losartan (COZAAR) 100 MG tablet Take 100 mg by mouth daily. Active Active Problems Problem Noted Date Diagnosed Date Shortness of breath 09/25/2022 Transient alteration of awareness 09/11/2022 Numbness and tingling of both lower extremities 08/31/2022 Parkinson's disease 05/10/2022 Overview (11/13/2022): Last Assessment & Plan: Ms. Chávez presented for a follow up. 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 woman with a [...] any separately reportable services. Falls frequently 05/03/2021 Overview (08/31/2022): Last Assessment & Plan: NEUROPSYCHOLOGICAL EVALUATION: INTERPRETATION (for Assessment and Plan, see further below) Mildly impaired cognitive performance on MMSE; Normal cognitive performance on MoCA. Moderate evidence of depression on GDS; Strong evidence of depression on HADS. Moderate evidence of anxiety on HADS. No evidence of daytime drowsiness on [place] scale. Mild evidence of REM Behavior Disorder [...] physical therapy is going. This encounter's total pxyf-to-nkzv time was greater than 60 minutes. I [...] of implantable loop record er 12/23/2020 Overview (08/31/2022): [employer] Implantable Loop Recorder-Biomonitor III. Dx; Syncope. DOI 12/23/2020. [employer] Home Monitor. 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 04/14/2011 Dysfunction of eustachian tube 04/14/2011 Paroxysmal atrial fibrillation Resolved Problems Problem Noted Date Diagnosed Date Resolved Date Encounter for preventive health examination 04/30/2012 09/04/2022 Social History Tobacco Use Types Packs/Day Years Used Date Smoking Tobacco: Never Smokeless Tobacco: Never Tobacco Cessation:Counseling Given: Not Answered Alcohol Use Standard Drinks/Week Comments Not Currently 0 (1 standard drink = 0.6 oz pur e alcohol) Comments No Sex and Gender Information Value Date Recorded Sex Assigned at Not on file Legal Sex Female 7:30 PM CDT Gender Identity Not on file Sexual Orientation Not on file Last Filed Vital Signs Vital Sign Reading Time Taken Comments Blood Pressure 126/70 11/13/2022 8:11 AM ELIGIBILITY EXAMINER Pulse 76 11/13/2022 8:11 AM ELIGIBILITY EXAMINER Temperature 36.7 C (98.1 F) 11/13/2022 8:11 AM ELIGIBILITY EXAMINER Respiratory Rate 20 11/13/2022 8:11 AM ELIGIBILITY EXAMINER Oxygen Saturation 97% 11/13/2022 8:11 AM ELIGIBILITY EXAMINER Inhaled Oxygen Concentration - - Weight 99.9 kg (220 lb 3.2 oz) 11/13/2022 8:11 A M ELIGIBILITY EXAMINER Height 165.1 cm (5' 5) 09/06/2022 10:05 AM ELIGIBILITY EXAMINER Body Mass Index 36.64 09/06/2022 10:05 AM ELIGIBILITY EXAMINER Plan of Treatment Health Maintenance Due Date Last Done Comments Cervical Cancer Screening Pa p Smear (Age 30 to 64) Every 3 Years 1961 Colorectal Cancer Screening Colonoscopy (10 Years) 1961 Annual Physical 1964 Hepatitis C 1979 Pneumococcal Vaccine: 50+ Years (1 of 2 - PCV) 1980 Cervical Cancer Screening Pa p with HPV Testing (Age 30 to 64) Every 5 Years 1991 Cervical Cancer Screening wi th HPV 1991 Mammogram Screening 2001 RSV Immunization or 60+ Years (1 - Risk 60-74 years 1-dose series) 2021 COVID-19 Vaccine (3 - 2024-2 6 season) 2025 08/19/2021, 12/28/2020 Influenza Adult (#1) 2025 08/05/2022, 08/01/2018 DTaP, Tdap and Td Vaccines ( 2 - Td or Tdap) 08/01/2028 08/01/2018 Zoster Vaccines Completed 10/05/2020, 07/23/2020 Hepatitis A Vaccines Aged Out No long er eligible based on patient's age to complete this topic Meningococcal B Vaccine Aged Out No l onger eligible based on patient's age to complete this topic Meningococcal Vaccine Aged Out No alton kimmy eligible based on patient's age to complete this topic RSV Immunizations Under 20 Months Aged Out No longer eligible b ased on patient's age to complete this topic Insurance [employer] Care Teams Print Production Coordinator Relationship Specialty Start Date End Date Lino Kraft MD [address] [place] [address] PCP - General FAMILY PRACTICE 12/12/21
== END 2025-08-21 09:07 | disposition home or self-care (01) ==
LOC: ANHAUDIO 09:07
PROVIDERS: PCP Family Medicine; Visit Provider Otolaryngology
DX: H91.93 Unspecified hearing loss, bilateral (principal)
CPT/HCPCS: 92557; 92567

== ENCOUNTER 2025-08-31 11:48 | Outpatient (CLI) | payer OTHER, SELFPAY ==
--- OUTSIDE RECORDS SUMMARY | 2025-08-31 12:27 | XMS_ITS | Clinical Summary ---
Author Organization [facility] Address [facility] [place] [address] Care Team Providers Care Sleeve Separator Name Role Phone Lino Kraft MD Primary Care Provider Demond Talamantes MD Unavailable [phone] Allergies Active Allergy Reactions Criticality Noted [...] (10 mg total) by mouth daily Active sertraline (ZOLOFT) 50 mg tablet Take 1 tablet (50 mg total) by mouth daily Active Active [...] She wanted her levodopa order sent to [facility] and this was sent, but the number on her card ([phone]) was different from the number in her chart Recommendations: No medication changes today Levodopa order sent [facility] mail order Continue to exercise as tolerated Continue to follow up with psychiatrist and therapist Stay well hydrated Assessment & Plan (10/10/2022 8:43 AM PROFILE SAW SETUP OPERATOR): Ms. Chávez presented for a follow up. [...] 05/31/2021 Assessment & Plan (10/09/2024 11:30 AM PROFILE SAW SETUP OPERATOR): Ms. Chávez is a 64 y.o. female [...] HADS. No evidence of daytime drowsiness on [place]way scale. Mild evidence of REM Behavior Disorder [...] physical therapy is going. This encounter's total yzqg-nk-zsfk time was greater than 60 minutes. I [...] implantable loop record er 12/23/2020 Overview (12/24/2020): [employer] Implantable Loop Recorder-Biomonitor III. Dx; Syncope. DOI 12/23/2020. [employer] Home Monitor. 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 04/14/2011 Dysfunction of eustachian tube 04/14/2011 Resolved Problems Problem Noted Date Diagnosed Date Resolved Date Shortness of breath 09/25/2022 02/20/20 Acute cystitis without hematuria 09/11/2022 02/19/2023 Transient alteration of awareness 09/11/2022 02/19/2023 Murmur, heart 09/08/2020 02/19/2023 Numbness and tingling of bot h lower extremities 02/19/2023 Numbness and tingling of bot h upper extremities 10/05/2021 Encounters Date Type Department Care Team Description 08/26/2025 9:30 AM PROFILE SAW SETUP OPERATOR Office Visit [facility] Medicine Movement Disorders [address] [facility] 7th [place] [address] Nic Garcia MD Parkinson's disease without dyskinesia or fluctuating manifestations (HCC) (Primary Dx) 08/20/2025 Telephone [facility] Cardiology [address] [place] [phone] Jamshid Lombardo MD 08/12/2025 7:00 AM CDT Ancillary Procedure [facility] Cardiology [address] [place] [address] [place] [phone] Status post placement of implantable loop recorder; Syncope and collapse 07/13/2025 7:15 AM CDT Ancillary Procedure [facility] Cardiology [address] [place] [address] [place] [phone] Status post placement of implantable loop recorder; Syncope and collapse 06/04/2025 11:00 AM CDT Office Visit [facility] Cardiology [address] [facility] [address] [place] [phone] Jamshid Lombardo MD Nonrheumatic aortic valve stenosis (Primary Dx); Status post placement of implantable loop recorder 06/01/2025 7:15 AM CDT Ancillary Procedure [facility] Cardiology [address] [place] [address] [place] [phone] Status post placement of implantable loop recorder [...] on file Legal Sex Female 7:11 PM PROFILE SAW SETUP OPERATOR Gender Identity Female 09/07/2020 6:37 PM PROFILE SAW SETUP OPERATOR Sexual Orientation Not on file Occupation Industry Job Start Date Job End Date [place] Not on file Not on file Not on file Last Filed Vital Signs Vital Sign Reading Time Taken Comments Blood Pressure 123/77 08/26/2025 9:26 AM PROFILE SAW SETUP OPERATOR Pulse 69 08/26/2025 9:26 AM PROFILE SAW SETUP OPERATOR Temperature 37.2 C (98.9 F) 04/13/2023 12:48 PM CDT Respiratory Rate 20 09/29/2022 10:4 0 AM PROFILE SAW SETUP OPERATOR Oxygen Saturation 99% 06/04/2025 10: 41 AM CDT Inhaled Oxygen Concentration - - Weight 103.2 kg (227 lb 9.6 oz) 08/26/2025 9:26 AM PROFILE SAW SETUP OPERATOR Height 165.1 cm (5' 5) 06/04/2025 10:4 1 AM CDT Body Mass Index 37.87 06/04/2025 10:41 AM CDT Plan of Treatment Health Maintenance Due Date Last Done Comments Breast Cancer Screening-Mammogram 1961 Cervical Cancer Screening 1961 Colon Cancer Screening-Colonoscopy 1961 Hepatitis C Screening 1961 Regular Well Visit/Exam 18-64 1979 Pneumococcal vaccine <65 (1 of 2 - PCV) 1980 Depression Screening 10/09/2023 10/09/2022 Influenza Vaccine (#1) 2025 , 08/10/2023, 08/05/2022, Additional history exists DTaP/Tdap/Td Vaccine (3 - Td or Tdap) 08/01/2028 08/01/2018, 08/01/2018 Hepatitis B Screening Completed 04/21/1998 Zoster Vaccine Completed 10/05/2020, 07/23/2020 Medical Devices Implanted Type Area Document Improvement Specialist Device Identifier Shelf Expiration Date Model / Serial / Lot Loop Recorder Chest [employer] Procedures Procedure Name Priority Date/Time Associated Diagnosis Comments DEVICE CHECK - REMOTE Routine 08/13/2025 6:50 AM CDT Status post placement of implantable loop recorder Syncope and collapse DEVICE CHECK - REMOTE Routine 07/13/2025 12:26 PM CDT Status post placement of implantable loop recorder Syncope and collapse DEVICE CHECK - REMOTE Routine 06/02/2025 9:25 AM CDT Syncope and collapse from Last 3 Months Results * DEVICE CHECK - REMOTE (08/13/2025 6:50 AM CDT) Anatomical Region Laterality Modality Other Narrative 08/31/2025 12:14 PM PROFILE SAW SETUP OPERATOR [employer] Implantable Loop Recorder-Biomonitor III. Dx; Syncope. [...] f/u pending possible replacement. Ezequiel Chowdary RN us Jamshid Lombardo MD [facility] PROC EDURES Final Result * DEVICE CHECK - REMOTE (07/13/2025 12:26 PM CDT) Anatomical Region Laterality Modality Other Narrative 08/10/2025 7:17 AM CDT [employer] Implantable Loop Recorder-Biomonitor III. Dx; Syncope. [...] Modality Other Narrative 06/26/2025 12:40 PM CDT [employer] Implantable Loop Recorder-Biomonitor III. Dx; Syncope. [...] Final Result from Last 3 Months Insurance [facility] [id number] [facility] [place] [facility] [id number] Advance Directives For more information, please contact: [phone] * Full Code (Latest Code Status on File) Date Activated Date Inactivated Comments 09/26/2022 12:08 AM 09/29/2022 10:09 PM Care Teams Sleeve Separator Relationship Specialty Start Date End Date Lino Kraft MD [address] [place] [address] PCP - General Family Medicine 09/08/20 Demond Talamantes MD [address] [place] [address] Referring Physician Psychiatry 09/08/20
--- OUTSIDE RECORDS SUMMARY | 2025-08-31 12:27 | XMS_ITS | Clinical Summary ---
Author Organization [facility] Address [address] [facility] [place] [address] Care Team Providers Care Philosophy Faculty Member Name Role Phone Madan Mckinley MD Primary Care Provider [phone] Source Comments [facility],non-owned Affiliates and Associated Physician Practices is amultiple site organization consisting of ambulatory clinics and hospital sitesin [place], [place], [place] and [place]. This disclosure is being madepursuant to the Care Everywhere program and may not contain all information available regarding this patient. Last updated 18.[facility] Immunizations Immunization Administration Dates Next Due TDAP (7yrs+) 08/01/2018 Social History Tobacco Use Types Packs/Day Years Used Date Smoking Tobacco: Never Assessed Comments Unknown Sex and Gender Information Value Date Recorded Sex Assigned at Not on file Legal Sex Female 7:38 PM PINKED EDGE SEWING MACHINE OPERATOR Gender Identity Not on file Sexual Orientation [...] patient's age to complete this topic Insurance [employer] Care Teams Philosophy Faculty Member Relationship Specialty Start Date End Date Madan Mckinley MD [address] [place] [address] [place] [address] PCP - General 03/18/09
--- OUTSIDE RECORDS SUMMARY | 2025-08-31 12:28 | XMS_ITS | Encounter Summary ---
Author Organization [facility] Address [facility] [place] [address] Care Team Providers Care Broadcast Transmitter Operator Name Role Phone Lino Kraft MD Primary Care Provider [phone] Encounter Details Date Type Department Care Team (Late st Contact Info) Description 06/14/2023 [employer] Message [employer] [address] [place] [address] [employer], [facility] Provider Patient Amendment Request Social History Tobacco [...] on filedocumented in this encounter Care Teams Broadcast Transmitter Operator Relationship Specialty Start Date End Date Lino Kraft MD [address] [facility] [address] [place] [address] PCP - General FAMILY PRACTICE 12/12/21 documented as of this encounter
--- OUTSIDE RECORDS SUMMARY | 2025-08-31 12:28 | XMS_ITS | Encounter Summary ---
Author Organization [facility] Address [facility] [place] [address] Care Team Providers Care Men'S And Boys' Clothing Salesperson Name Role Phone Lino Kraft MD Primary Care Provider [phone] Encounter Details Date Type Department Care Team (Late st Contact Info) Description 09/05/2023 [employer] Message [facility] [address] [place] [address] [employer], [facility] Provider Patient Amendment Request Approval Social History [...] on filedocumented in this encounter Care Teams Men'S And Boys' Clothing Salesperson Relationship Specialty Start Date End Date Lino Kraft MD [address] [facility] [address] [place] [address] PCP - General FAMILY PRACTICE 12/12/21 documented as of this encounter
[2025-08-31 12:36] LABS: Influenza A QL RT-PCR Negative (Negative); Influenza B QL RT-PCR Negative (Negative); RSV RNA, RT-PCR Negative (Negative); SARS-CoV-2 RNA PCR Negative (Negative)
== END 2025-08-31 11:49 | disposition home or self-care (01) ==
LOC: ANHLAB 11:49
PROVIDERS: PCP Family Medicine; Visit Provider Physician Assistant
DX: R50.9 Fever, unspecified (principal); R05.9 Cough, unspecified; Z20.822 Contact with and (suspected) exposure to COVID-19
CPT/HCPCS: 87637

== ENCOUNTER 2025-09-25 09:19 | Outpatient (CLI) | payer OTHER, SELFPAY ==
--- NOTE | ~2025-09-25 | MM_ITS ---
EXAMINATION: MM screening jennifer BI w maria isabel HISTORY: Screening. TECHNIQUE: Craniocaudal and mediolateral oblique 3-D tomosynthesis images were obtained and synthetic 2-D images were generated. CAD analysis was submitted and interpreted. COMPARISON: 2023, 2022, and 2021. BREAST PARENCHYMAL COMPOSITION: Not Dense: There are scattered areas of fibroglandular FINDINGS: There is a metallic structure overlying the posterior medial left breast, which was also seen on the prior study. No suspicious masses are seen. There are no suspicious calcifications. No unexplained architectural distortion is seen. There are no skin or nipple abnormalities identified. There is no adenopathy seen on the images submitted. IMPRESSION: No mammographic or sonographic evidence to suggest malignancy is seen. The patient may return to screening mammography as per ACR guidelines. BI-RADS 1 - Negative. Reviewed, dictated and finalized at location B. AL RESEARCH ASSISTANT IMPRESSION: No mammographic or sonographic evidence to suggest malignancy is seen. The shauna ent may return to screening mammography as per ACR guidelines. BI-RADS 1 - Negative.
== END 2025-09-25 09:20 | disposition home or self-care (01) ==
LOC: ANHFOHIMG 09:21
PROVIDERS: PCP Family Medicine; Visit Provider Family Medicine
DX: Z12.31 Encounter for screening mammogram for malignant neoplasm of breast (principal)
CPT/HCPCS: 77063; 77067

== ENCOUNTER 2025-10-06 11:40 | Emergency (ER) | payer OTHER, SELFPAY ==
--- NOTE | ~2025-10-06 | XR_ITS ---
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 Findings: Moderate osteopenia. No acute fracture. Severe tricompartmental degenerative changes with small effusion. Soft tissues unremarkable. Impression: No acute fracture or malalignment. Reviewed, dictated and finalized at location P. LER DRIER OPERATOR Impression: No acute fracture or malalignment.
[2025-10-06 11:50] VITALS: BP 102/41; PULSE 67; RESP 16; TEMP 36.4; O2SAT 100
--- NOTE | 2025-10-06 12:15 | ED.LOWEXIN ---
HPI - Extremity Injury (Lower) General Chief Complaint: Extremity Injury, Lower Stated Complaint: L knee pain Time Seen by Provider: 10/06/25 12:00 Source: patient and RN notes reviewed Mode of arrival: ambulatory Limitations: no limitations History of Present Illness HPI Narrative: 65-year-old female Presents Express Care complaining of injury to left knee. Patient reports said yesterday she was walking when she twisted her left knee on accident. Patient denies any falls or any other injuries. Patient reports pain bearing weight to her left knee. Patient has a history of arthritis to both of her knees, she was told in the past that she needs a knee replacement but she has not decided to go through with that yet. Patient has been taking ibuprofen with minimal relief. Patient denies any numbness, tingling or any other injuries. Patient history of Parkinson's, hypertension, and bipolar disorder Related Data Home Medications ?Medication ?Instructions ?Recorded ?Confirmed ?Last Taken ?Type carbidopa 25 mg-levodopa 100 mg See Rx Instructions .Route .COMPLEX 08/18/22 09/03/25 Unknown History tablet (Sinemet) lamotrigine 100 mg tablet 100 mg PO BID 02/16/25 09/03/25 Unknown History trazodone 50 mg tablet 100 mg PO QHS PRN 02/16/25 09/03/25 Unknown History Allergies Allergy/AdvReac Type Severity Reaction Status Date / Time cefixime Allergy Intermediate Itching Verified 09/03/25 14:13 and rash ciprofloxacin Allergy Intermediate Unknown Verified 09/03/25 14:13 clarithromycin Allergy Intermediate Unknown Verified 09/03/25 14:13 erythromycin base Allergy Intermediate itching Verified 09/03/25 14:13 and rash Penicillins Allergy Intermediate itching Verified 09/03/25 14:13 and rash sulfamethizole Allergy Intermediate itching Verified 09/03/25 14:13 and rash sulfamethoxazole Allergy Intermediate ITCHING Verified 09/03/25 14:13 AND RASH tetracycline Allergy Intermediate Itching Verified 09/03/25 14:13 and rash trimethoprim Allergy Intermediate ITCHING Verified 09/03/25 14:13 AND RASH Review of Systems Review of Systems: CONSTITUTIONAL: Denies fever, chills, or sweats. EYES: Denies visual changes, redness, or discharge. ENT: Denies rhinorrhea, congestion, sore throat, or otalgia. CARDIOVASCULAR: Denies chest pain, palpitations, or edema. RESPIRATORY: Denies cough or dyspnea. GASTROINTESTINAL: Denies abdominal pain, nausea, vomiting, or diarrhea. GENITOURINARY: Denies dysuria or hematuria. SKIN: Denies rash, wound, or itching. MUSCULOSKELETAL: Denies back pain, joint pain, or myalgia. Positive for left knee pain NEUROLOGIC: Denies headache, numbness, or weakness. PSYCHIATRIC: Denies anxiety or depression. All other systems reviewed are negative, except as documented in HPI. [facility] Past Medical History Medical History Acute tympanomastoiditis of right side Implantable loop recorder present Parkinson's disease Obesity Hyperlipidemia Schizoaffective disorder The patient is unsure if she has schizophrenia versus schizoaffective disorder Bipolar disorder Cerebral ventriculomegaly Since 1986 Diastolic dysfunction Echocardiogram 09/2020: Grade 1 diastolic dysfunction EF 74%, mild concentric left ventricular hypertrophy, mild pulmonary hypertension with RVSP of 38, mild aortic valve stenosis, mild mitral valve prolapse Major depressive disorder Syncope and collapse Osteoarthritis of knees, bilateral Anxiety and depression B12 deficiency Chronic GERD Essential (primary) hypertension Other and unspecified hyperlipidemia Surgical History Surgical History History of tympanoplasty of right ear H/O myringotomy Hx of LASIK History of loop recorder History of ear surgery Hx of foot surgery Left foot w/ [place] procedure History of mastoidectomy (~1993) Right, multiple Normal colonoscopy (01/04/18) Dr. Ruiz Family History Family History Father Hypertension Hyperlipidemia Mother Hypertension Hyperlipidemia Arthritis Dementia Social History Social History Social History: The patient lives with herself. 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 She will not admit to a prior history of smoking but according to prior records the patient did briefly smoked for couple of years when she was young. She denies any alcohol use or illicit substance use. Primary care physician: Dr. Lino Kraft Code status: Full code Years smoked: 2 Smoking status: Never smoker Tobacco type: cigarettes Second hand tobacco smoke exposure: Yes Smoking end date: 10/22/81 Alcohol intake: never Substance use: never Substance use type: does not use Lack of Transportation: No Lack of Food: Never True Current Housing: I Have Housing Concerned About Future Housing: No Difficulty Paying Gas/Electric Bills: No Difficulty Paying for Meds: No Currently Unemployed: No Education: Trade/Vocational Certificate Difficulty w/ Childcare or Family Care: No Living arrangements: alone Occupation/Education: retired Additional occupation/education comments: [employer] Gender identity (if verbalized by the patient): Female Sexual Orientation (if Verbalized by the Patient): Straight or Heterosexual Spiritual care concerns: No Comments At the time of my signature, I reviewed and agree with the nursing past medical, surgical, social, and family history. There is no relevant family history pertinent to the patient complaint. Exam Narrative: GENERAL: This is a well-nourished, well-developed adult, in no apparent distress. They are non ill-appearing, nontoxic appearing. HEAD: normocephalic, atraumatic. EYES: Sclera clear/white. Vision is grossly intact. Conjunctiva normal. Extraocular movement intact. EARS: External ears normal Hearing grossly intact. NOSE: External nose normal THROAT: Mucous membranes moist NECK: Neck supple CARDIOVASCULAR: Regular rate and rhythm RESPIRATORY: Respiratory rate normal, respiratory effort nonlabored, no respiratory distress NEURO: awake, alert, and oriented to person, place and time. There were no obvious focal neurologic abnormalities. EXTREMITIES: Left knee: No obvious deformity, injury, swelling, bruising, redness. There is pain through full range of motion. No bony tenderness. Capillary refill less than 3 seconds. Pulse 2 +palpable. Normal sensation. Neurovascular status intact distal injury. No valgus or varus laxity. Negative anterior drawer test. BACK: Nontender without deformity. Course Course Level of Care: Express Care Visit Vital Signs Vital signs: Vital Signs Temperature 97.6 F 10/06/25 11:50 Pulse Rate 67 10/06/25 11:50 Respiratory Rate 16 10/06/25 11:50 Blood Pressure 102/41 L 10/06/25 11:50 Pulse Oximetry 100 10/06/25 11:50 Temperature 97.6 F 10/06/25 11:50 Pulse Rate 67 10/06/25 11:50 Respiratory Rate 16 10/06/25 11:50 Blood Pressure 102/41 L 10/06/25 11:50 Pulse Oximetry 100 10/06/25 11:50 MDM MDM Narrative Medical decision making narrative: X-ray left knee is negative for any fracture or acute findings, severe arthritic changes noted to the left knee along with a small joint effusion. Otherwise unremarkable. Discussed rice therapy and supportive care of eyes patient pain is persisting to follow-up with ortho again. Discussed physical exam findings. Advised supportive measures and signs/symptoms to go to the ER. Pt is appropriate for outpt treatment and f/u. Differential Diagnosis Differential Diagnosis: Knee sprain, contusion, arthritis, knee fracture Imaging Data Radiologist's impression: ITS Impressions Knee X-Ray 10/06/25 12:03 Impression: No acute fracture or malalignment. Critical Care Time Critical Care Time Critical Care Time: No Discharge Plan Discharge Clinical Impression: Injury of knee, left Qualifiers: Encounter type: initial encounter Qualified Code(s): S89.92XA - Unspecified injury of left lower leg, initial encounter Patient Disposition: Home Condition: Stable Instructions: Knee Sprain (ED) Additional Instructions: The x-ray of the left knee is negative for any fractures or acute findings, does show severe arthritic changes to her knee. Rest and elevate the leg; bear weight as tolerated Apply ice 15-20 minute intervals several times a day Keep it wrapped with ALYSSA or use a knee brace You may take ibuprofen 600 mg to 800 mg every 6-8 hours. Do not exceed more than 800 mg of ibuprofen per dose. Do not exceed more than 3200 mg ibuprofen in a day. You may take up to 1000 mg Tylenol every 6-8 hours. Do not exceed 1000 mg per dose, do exceed more than 4000 mg of Tylenol in a day. Follow up with your primary care provider or orthopedist as needed in 1-2 weeks especially if pain is persistent after 10 days. Patient Language: Turkish Prescriptions: No Action zaleplon 5 mg capsule 5 mg PO QHS PRN (Reason: sleep) Qty: 30 0RF Rx Instructions: must avoid high-fat meal/food immediately before taking dose lamotrigine 100 mg tablet 100 mg PO BID trazodone 50 mg tablet 100 mg PO QHS PRN sertraline 50 mg tablet 50 mg PO DAILY Qty: 30 0RF carbidopa-levodopa [Sinemet] 25-100 mg tablet See Rx Instructions .ROUTE .COMPLEX Rx Instructions: 25-100mg 1.5 tab TID omeprazole 40 mg capsule,delayed release(DR/EC) 40 mg PO DAILY Qty: 90 3RF atorvastatin 80 mg tablet 80 mg PO QHS Qty: 90 3RF montelukast 10 mg tablet 10 mg PO HS Qty: 90 3RF diclofenac sodium 75 mg tablet,delayed release (DR/EC) See Rx Instructions .ROUTE .COMPLEX Qty: 180 2RF Dose Instruction: Take 1 tablet by mouth twice daily Rx Instructions: Take 1 tablet by mouth twice daily cetirizine-pseudoephedrine [Zyrtec-D] 5-120 mg tablet extended release 12 hr 1 tablet PO Q12H Qty: 180 0RF metoprolol succinate 50 mg tablet extended release 24 hr See Rx Instructions .ROUTE .COMPLEX Qty: 90 2RF Dose Instruction: Take 1 tablet by mouth once daily Rx Instructions: Take 1 tablet by mouth once daily irbesartan 300 mg tablet 300 mg PO DAILY Qty: 90 2RF Follow-up/Referrals: Lino Kraft MD [Primary Care Provider, Family Practice] Imtiaz Mercedes MD [Physician, Orthopedics] - 1 Week Time of Disposition: 12:14
== END 2025-10-06 12:19 | disposition home or self-care (01) ==
PROVIDERS: PCP Family Medicine
DX: S89.92XA Unspecified injury of left lower leg, initial encounter (principal); X50.1XXA Overexertion from prolonged static or awkward postures, initial encounter; Y93.01 Activity, walking, marching and hiking; G20.A1 Parkinson's disease without dyskinesia, without mention of fluctuations; I10 Essential (primary) hypertension; K21.9 Gastro-esophageal reflux disease without esophagitis; E78.49 Other hyperlipidemia; M17.0 Bilateral primary osteoarthritis of knee; F41.9 Anxiety disorder, unspecified; F31.9 Bipolar disorder, unspecified; E66.9 Obesity, unspecified; Z68.36 Body mass index [BMI] 36.0-36.9, adult; Z87.891 Personal history of nicotine dependence
CPT/HCPCS: 73562; 99213; G0463